=== PATIENT | male | born 1955 | race African-American/Black ===

== ENCOUNTER 2016-05-21 07:55 | Inpatient (IN) | payer OTHER ==
[~2016-05-21] VITALS: Ht 175.3 cm; Wt 65.0 kg
[2016-05-21] VITALS (12 sets, daily range): BP systolic 170–194; BP diastolic 118–145
[~2016-05-21 07:55] MED LIST: ADVAIR 250/501 DISK IH; AMLODIPINE BESY10 MG PO; AMLODIPINE BESYL5 MG PO; APRESOLINE100 MG PO; APRESOLINE50 MG PO; ASPIR-LOW81 MG PO; AUGMENTIN500 MG PO; BACTRIM,SEPT1 TABLE1 PO; BUMETANIDE1 MG PO; BUMEX1 MG PO; CALCITRIOL0.25 MCG PO; CALCIUM ACETAT667 MG PO; CLARITIN,ALAVAR10 MG PO; CLONIDINE HCL0.1 MG PO; CLONIDINE1 EAC2 TD; COLACE100 MG PO; CYANOCOBAL1000 MCG/2 IM; CYANOCOBALAM1000 MCG PO; CYCLOPHOSPHAMID50 M2 PO; DELTASONE20 M1 PO; DOXYCYCLINE HY100 MG PO; ERGOCALCIF50000 UNIT PO; FAMOTIDINE20 MG PO; FLORASTOR250 MG PO; FOLIC ACID1 MG PO; FUROSEMIDE40 MG PO; HYGROTON25 MG PO; IRON325 M1 PO; IRON325 MG PO; K-DUR20 MEQ PO; KEPPRA250 MG PO; KLOR-CON M2020 MEQ PO; LABETALOL HCL100 MG PO; LABETALOL HCL300 MG PO; LEVETIRACETAM250 MG PO; LISINOPRIL10 MG PO; LISINOPRIL20 MG PO; LISINOPRIL40 MG PO; LO-DOSE ASPIRIN81 M1 PO; LONITEN2.5 MG PO; LORATADINE10 M2 PO; MULTI-DAY PLUS1 EACH PO; NABI650T PO; NICODERM CQ1 EAC2 TD; NICOTINE PATCH1 EAC2 TD; NIFEDIPINE ER90 MG PO; NORMODYNE,TRAN300 MG PO; NORVASC10 MG PO; PANTOPRAZOLE SO40 MG PO; PEPCID20 MG PO; PREDNISONE10 MG PO; PREDNISONE20 MG PO; PROTONIX40 MG PO; ROCALTROL0.25 MCG PO; VENTOLIN HFA18 GM IH; VIBRAMYCIN100 MG PO; VITAMIN B-12500 MC5 SL; VITAMIN D-32000 UNI2 PO; VITAMIN D2000 UNIT PO; VITAMIN D22000 UNIT PO; Vitamin B-12 PO; ZESTRIL20 MG PO
[2016-05-21 09:09] LABS: HEMATOCRIT 17.7 % (38.0-50.0); MCH 25.4 PG (29.0-34.0); MCHC 32.8 G/DL (30.0-36.0); MCV 77.6 FL (86-99); MEAN PLAT.VOLUME 9.3 uM^3 (9.0-12.4); PLATELET COUNT 177 K/uL (156-360); RBC DIS.WIDTH-CV 17.2 % (11.8-14.6); RBC DIS.WIDTH-SD 45.5 % (39-53); RED BLOOD COUNT 2.28 M/uL (4.00-5.50); WHITE BLOOD COUNT 10.5 K/uL (4.1-10.2)
[2016-05-21 09:14] LABS: CHLORIDE 105 mEq/L (99-109); POTASSIUM 3.6 mEq/L (3.7-5.4); SODIUM 135 mEq/L (136-147)
[2016-05-21 09:16] LABS: GLUCOSE 110 mg/dL (70-99)
[2016-05-21 09:17] LABS: ANION GAP 13 MEQ/L (2-14)
[2016-05-21 09:20] LABS: GFR ESTIMATE (CALCULATED) 26 mL/min/; UREA NITROGEN (BUN) 42 mg/dL (9-23)
[2016-05-21 09:29] LABS: TROP-I INTERPRETATION NEGATIVE; TROPONIN-I 0.18 ng/mL (0.0-0.30)
[2016-05-21] MEDS ORDERED: MINOXIDIL2.5 MG PO (12:04)
[2016-05-21] MEDS ORDERED: CALCIUM ACETAT667 MG PO (12:05)
[2016-05-21] MEDS ORDERED: NABI650T PO (12:19)
[2016-05-21] MEDS ORDERED: FOLIC ACID1 MG PO (12:20)
[2016-05-21] MEDS ORDERED: CALCITRIOL0.25 MCG PO (12:20)
[2016-05-21] MEDS ORDERED: NIFEDIPINE ER90 MG PO (12:21)
[2016-05-21 20:34] LABS: METH RESISTANT S AUREUS PCR NEGATIVE (NEGATIVE)
[2016-05-21 20:59] LABS: PROBE CHECK PASS; SPECIMEN PROCESSING CONTROL PASS
[2016-05-21 22:13] LABS: HEMATOCRIT 23.6 % (38.0-50.0); MCH 26.7 PG (29.0-34.0); MCHC 34.3 G/DL (30.0-36.0); MCV 77.9 FL (86-99); MEAN PLAT.VOLUME 9.9 uM^3 (9.0-12.4); PLATELET COUNT 151 K/uL (156-360); RBC DIS.WIDTH-CV 16.6 % (11.8-14.6); RBC DIS.WIDTH-SD 47.3 % (39-53); RED BLOOD COUNT 3.03 M/uL (4.00-5.50); WHITE BLOOD COUNT 4.9 K/uL (4.1-10.2)
[2016-05-22] VITALS (14 sets, daily range): BP systolic 94–156; BP diastolic 55–102
[2016-05-22 06:22] LABS: ANION GAP 14 MEQ/L (2-14); CHLORIDE 100 MEQ/L (99-109); GFR ESTIMATE (CALCULATED) 24 mL/min/; GLUCOSE 118 mg/dL (70-99); SAMPLE HEMOLYSIS CHECK 0; SAMPLE ICTERIC CHECK 0; SAMPLE LIPEMIA CHECK 0; SODIUM 133 MEQ/L (136-147); UREA NITROGEN (BUN) 53 mg/dL (9-23)
[2016-05-22 06:59] LABS: HEMATOCRIT 23.8 % (38.0-50.0); MCH 26.1 PG (29.0-34.0); MCHC 33.6 G/DL (30.0-36.0); MCV 77.5 FL (86-99); MEAN PLAT.VOLUME 10.6 uM^3 (9.0-12.4); PLATELET COUNT 176 K/uL (156-360); RBC DIS.WIDTH-CV 16.7 % (11.8-14.6); RBC DIS.WIDTH-SD 47.2 % (39-53); RED BLOOD COUNT 3.07 M/uL (4.00-5.50)
[2016-05-22 07:09] LABS: WHITE BLOOD COUNT 6.5 K/uL (4.1-10.2)
[2016-05-23 01:00] VITALS: BP 109/63
[2016-05-23 04:00] VITALS: BP 124/61
[2016-05-23 08:00] VITALS: BP 119/70
[2016-05-23 09:44] LABS: HEMATOCRIT 23.1 % (38.0-50.0); MCH 26.7 PG (29.0-34.0); MCHC 33.8 G/DL (30.0-36.0); MCV 79.1 FL (86-99); MEAN PLAT.VOLUME 10.1 uM^3 (9.0-12.4); PLATELET COUNT 194 K/uL (156-360); RBC DIS.WIDTH-SD 48.8 % (39-53); RED BLOOD COUNT 2.92 M/uL (4.00-5.50)
[2016-05-23 10:05] LABS: ANION GAP 13 MEQ/L (2-14); CHLORIDE 101 MEQ/L (99-109); GFR ESTIMATE (CALCULATED) 24 mL/min/; GLUCOSE 112 mg/dL (70-99); SAMPLE HEMOLYSIS CHECK 0; SAMPLE ICTERIC CHECK 0; SAMPLE LIPEMIA CHECK 0; SODIUM 133 MEQ/L (136-147); UREA NITROGEN (BUN) 53 mg/dL (9-23)
[2016-05-23 10:07] LABS: POTASSIUM 2.9 MEQ/L (3.7-5.4)
[2016-05-23 10:15] LABS: WHITE BLOOD COUNT 9.6 K/uL (4.1-10.2)
[2016-05-23 12:00] VITALS: BP 129/75
[2016-05-23 13:00] VITALS: BP 134/85
== END 2016-05-23 14:04 | disposition home health service (06) | DRG 304 ==
LOC: EME 07:55 → 4WEST 15:48 → EDOF 15:48 → 4WEST 17:41
PROVIDERS: Internal Medicine; Internal Medicine Critical Care Medicine
PROC: 30233N1 Transfusion of Nonautologous Red Blood Cells into Peripheral Vein, Percutaneous Approach (ICD-10-PCS; principal; 2016-05-21)
DX: I16.0 Hypertensive urgency (principal); J44.0 Chronic obstructive pulmonary disease with (acute) lower respiratory infection; J18.9 Pneumonia, unspecified organism; R04.2 Hemoptysis; N18.4 Chronic kidney disease, stage 4 (severe); D59.9 Acquired hemolytic anemia, unspecified; I13.0 Hypertensive heart and chronic kidney disease with heart failure and stage 1 through stage 4 chronic kidney disease, or unspecified chronic kidney disease; I50.32 Chronic diastolic (congestive) heart failure; D63.1 Anemia in chronic kidney disease; E78.5 Hyperlipidemia, unspecified; R09.02 Hypoxemia; G40.909 Epilepsy, unspecified, not intractable, without status epilepticus; F17.210 Nicotine dependence, cigarettes, uncomplicated; Z79.82 Long term (current) use of aspirin
CPT/HCPCS: 70450; 71020; 80048; 83880; 84484; 85027; 86850; 86900; 86901; 86920; 87040; 87641; 93005; 94640; 94640 76; 94799; 99202; 99281; 99285; C1751; J0360; J0456; J1644; J2543; J2930; J3370; P9016

== ENCOUNTER 2016-05-30 08:43 | Inpatient (IN) | payer OTHER ==
[~2016-05-30] VITALS: Ht 175.3 cm; Wt 64.0 kg
[2016-05-30] VITALS (10 sets, daily range): BP systolic 128–209; BP diastolic 71–126
[~2016-05-30 08:43] MED LIST changes: +MINOXIDIL2.5 MG PO
[2016-05-30 09:39] LABS: INTER. NORMALIZED RATIO 1.1; PROTHROMBIN TIME 11.3 (9.2-11.2); PTT 26.1 (25-32)
[2016-05-30 09:40] LABS: CHLORIDE 110 mEq/L (99-109)
[2016-05-30 09:41] LABS: GLUCOSE 151 mg/dL (70-99)
[2016-05-30 09:41] LABS: EOSINOPHIL (%) 1.1 % (0-5); EOSINOPHIL COUNT 0.2 K/uL (0-0.3); HEMATOCRIT 26.1 % (38.0-50.0); IMMATURE GRANULOCYTE (%) 0.3 % (0.0-0.7); IMMATURE GRANULOCYTE COUNT 0.6 K/uL; LYMPHOCYTE COUNT 1.9 K/uL (1.0-2.8); MCH 26.5 PG (29.0-34.0); MCHC 32.2 G/DL (30.0-36.0); MCV 82.3 FL (86-99); MONOCYTE (%) 3.6 % (3-12); MONOCYTE COUNT 0.7 K/uL (0-0.8); NEUTROPHIL (%) 84.5 % (45-76); NEUTROPHIL COUNT 15.7 K/uL (1.8-6.4); RBC DIS.WIDTH-CV 17.7 % (11.8-14.6); RBC DIS.WIDTH-SD 51.4 % (39-53); RED BLOOD COUNT 3.17 M/uL (4.00-5.50)
[2016-05-30 09:43] LABS: ANION GAP 15 MEQ/L (2-14)
[2016-05-30 09:43] LABS: BASE EXCESS -1.2 mEq/L (-3 to +3); BICARBONATE 23.5 mEq/L (22-26); CARBOXY HGB 3.1 % (0-5); COMMENTS - BLOOD GASES NEG A+C+; DEVICE NIVV; METHEMOGLOBIN 1.3 % (0-1.5); PCO2 38 mm Hg (35-45); PO2 64 mm Hg (80-100); SITE RR
[2016-05-30 09:44] LABS: CONTINUOUS POS AIRWAY PRESSURE 5 cm H2O; MODE SPONT; PRES. SUPPORT 15 CM/H2O; TOTAL RESP RATE 32 resp/min
[2016-05-30 09:46] LABS: UREA NITROGEN (BUN) 31 mg/dL (9-23)
[2016-05-30 09:52] LABS: PLATELET COUNT 365 K/uL (156-360); WHITE BLOOD COUNT 18.6 K/uL (4.1-10.2)
[2016-05-30 09:55] LABS: TROP-I INTERPRETATION NEGATIVE; TROPONIN-I 0.04 ng/mL (0.0-0.30)
[2016-05-30 10:01] LABS: GFR ESTIMATE (CALCULATED) 32 mL/min/; POTASSIUM 3.8 mEq/L (3.7-5.4); SODIUM 142 mEq/L (136-147)
[2016-05-30 10:50] LABS: HEMATOLOGY COMMENT 1 SMEAR COMPATIBLE; PLAT.SUFFICIENCY INCREASED; USER ID STC
[2016-05-30 13:16] LABS: FI02 50 %
[2016-05-30 17:27] LABS: METH RESISTANT S AUREUS PCR NEGATIVE (NEGATIVE)
[2016-05-30 17:45] LABS: PROBE CHECK PASS; SPECIMEN PROCESSING CONTROL PASS
[2016-05-31] VITALS (13 sets, daily range): BP systolic 122–155; BP diastolic 65–85
[2016-05-31 04:54] LABS: CHLORIDE 109 mEq/L (99-109); POTASSIUM 4.5 mEq/L (3.7-5.4); SODIUM 142 mEq/L (136-147)
[2016-05-31 04:56] LABS: GLUCOSE 124 mg/dL (70-99)
[2016-05-31 04:58] LABS: ANION GAP 11 MEQ/L (2-14); TOTAL BILIRUBIN 0.4 mg/dL (0.0-1.0)
[2016-05-31 05:00] LABS: ALKALINE PHOSPHATASE 72 IU/L (3-129); GFR ESTIMATE (CALCULATED) 27 mL/min/
[2016-05-31 05:01] LABS: UREA NITROGEN (BUN) 42 mg/dL (9-23)
[2016-05-31 06:16] LABS: BASE EXCESS 0.3 mEq/L (-3 to +3); BICARBONATE 23.6 mEq/L (22-26); CARBOXY HGB 2.9 % (0-5); COMMENTS - BLOOD GASES C+; DEVICE MASK VENT; FI02 30 %; METHEMOGLOBIN 1.5 % (0-1.5); MODE SPONT; PCO2 31 mm Hg (35-45); PEEP 5 CM/H20; PO2 93 mm Hg (80-100); PRES. SUPPORT 10 CM/H2O; SITE RR; TOTAL RESP RATE 18 resp/min; pH 7.49 (7.35-7.45)
[2016-06-01] VITALS (7 sets, daily range): BP systolic 130–160; BP diastolic 67–80
[2016-06-01 08:17] LABS: EOSINOPHIL (%) 0 % (0-5); HEMATOCRIT 17.7 % (38.0-50.0); IMMATURE GRANULOCYTE (%) 0.3 % (0.0-0.7); LYMPHOCYTE COUNT 1.2 K/uL (1.0-2.8); MCH 27.5 PG (29.0-34.0); MCHC 34.5 G/DL (30.0-36.0); MCV 79.7 FL (86-99); MONOCYTE (%) 5.9 % (3-12); MONOCYTE COUNT 0.8 K/uL (0-0.8); NEUTROPHIL (%) 85.2 % (45-76); NEUTROPHIL COUNT 12.1 K/uL (1.8-6.4); RBC DIS.WIDTH-CV 17.9 % (11.8-14.6); RBC DIS.WIDTH-SD 51.7 % (39-53); RED BLOOD COUNT 2.22 M/uL (4.00-5.50); WHITE BLOOD COUNT 14.2 K/uL (4.1-10.2)
[2016-06-01 08:29] LABS: ANION GAP 15 MEQ/L (2-14); CHLORIDE 105 MEQ/L (99-109); GFR ESTIMATE (CALCULATED) 23 mL/min/; POTASSIUM 3.9 MEQ/L (3.7-5.4); SAMPLE HEMOLYSIS CHECK 0; SAMPLE ICTERIC CHECK 0; SAMPLE LIPEMIA CHECK 0; SODIUM 139 MEQ/L (136-147); UREA NITROGEN (BUN) 52 mg/dL (9-23)
[2016-06-01 08:32] LABS: GLUCOSE 90 mg/dL (70-99)
[2016-06-01 08:33] LABS: PLAT.SUFFICIENCY ADEQUATE; PLATELET COUNT UNABLE TO REPORT K/uL (156-360)
[2016-06-01 23:16] LABS: EOSINOPHIL (%) 0 % (0-5); HEMATOCRIT 24.6 % (38.0-50.0); IMMATURE GRANULOCYTE (%) 0.2 % (0.0-0.7); IMMATURE GRANULOCYTE COUNT 0.2 K/uL; LYMPHOCYTE COUNT 0.7 K/uL (1.0-2.8); MCH 27.2 PG (29.0-34.0); MCHC 33.3 G/DL (30.0-36.0); MCV 81.7 FL (86-99); MONOCYTE (%) 4.5 % (3-12); MONOCYTE COUNT 0.6 K/uL (0-0.8); NEUTROPHIL COUNT 11.6 K/uL (1.8-6.4); RBC DIS.WIDTH-CV 16.4 % (11.8-14.6); RBC DIS.WIDTH-SD 46.1 % (39-53); WHITE BLOOD COUNT 12.9 K/uL (4.1-10.2)
[2016-06-01 23:17] LABS: RED BLOOD COUNT 3.01 M/uL (4.00-5.50)
[2016-06-02 00:09] LABS: GIANT PLATELETS RARE; MEAN PLAT.VOLUME 9.6 uM^3 (9.0-12.4); PLAT.SUFFICIENCY ADEQUATE; PLATELET COUNT 256 K/uL (156-360); USER ID DCS
[2016-06-02 00:39] VITALS: BP 151/85
[2016-06-02 03:53] VITALS: BP 134/82
[2016-06-02 08:34] LABS: HEMATOCRIT 23.9 % (38.0-50.0); MCH 27.5 PG (29.0-34.0); MCHC 33.9 G/DL (30.0-36.0); MEAN PLAT.VOLUME 10.2 uM^3 (9.0-12.4); PLATELET COUNT 220 K/uL (156-360); RBC DIS.WIDTH-SD 50.7 % (39-53); RED BLOOD COUNT 2.95 M/uL (4.00-5.50); WHITE BLOOD COUNT 13.6 K/uL (4.1-10.2)
[2016-06-02 08:38] VITALS: BP 176/84
[2016-06-02 09:03] LABS: ANION GAP 10 MEQ/L (2-14); CHLORIDE 104 MEQ/L (99-109); GFR ESTIMATE (CALCULATED) 25 mL/min/; GLUCOSE 84 mg/dL (70-99); POTASSIUM 3.8 MEQ/L (3.7-5.4); SAMPLE HEMOLYSIS CHECK 0; SAMPLE ICTERIC CHECK 0; SAMPLE LIPEMIA CHECK 0; SODIUM 135 MEQ/L (136-147); UREA NITROGEN (BUN) 50 mg/dL (9-23)
[2016-06-02 09:05] LABS: INTACT PARATHYROID HORMONE 197 pg/mL (10-69)
[2016-06-02 11:49] VITALS: BP 153/74
[2016-06-02 11:56] LABS: HEMATOCRIT 25.4 % (38.0-50.0); MCV 80.4 FL (86-99)
[2016-06-02 15:38] VITALS: BP 142/67
[2016-06-02 18:00] LABS: HEMATOCRIT 28.2 % (38.0-50.0)
[2016-06-02 20:00] VITALS: BP 147/71
[2016-06-03 00:07] VITALS: BP 152/81
[2016-06-03 00:49] LABS: HEMATOCRIT 26.4 % (38.0-50.0)
[2016-06-03 04:00] VITALS: BP 154/73
[2016-06-03 07:42] VITALS: BP 169/80
[2016-06-03 08:30] LABS: HEMATOCRIT 24.3 % (38.0-50.0); MCH 27.7 PG (29.0-34.0); MCHC 34.2 G/DL (30.0-36.0); MEAN PLAT.VOLUME 9.7 uM^3 (9.0-12.4); PLATELET COUNT 236 K/uL (156-360); RBC DIS.WIDTH-CV 16.7 % (11.8-14.6); RBC DIS.WIDTH-SD 49.4 % (39-53); WHITE BLOOD COUNT 11.1 K/uL (4.1-10.2)
[2016-06-03 08:56] LABS: ANION GAP 9 MEQ/L (2-14); CHLORIDE 103 MEQ/L (99-109); GFR ESTIMATE (CALCULATED) 28 mL/min/; GLUCOSE 87 mg/dL (70-99); IRON 107 MCG/DL (35-150); POTASSIUM 3.6 MEQ/L (3.7-5.4); SAMPLE HEMOLYSIS CHECK 0; SAMPLE ICTERIC CHECK 0; SAMPLE LIPEMIA CHECK 0; SODIUM 134 MEQ/L (136-147); UREA NITROGEN (BUN) 45 mg/dL (9-23)
[2016-06-03 11:40] VITALS: BP 181/93
[2016-06-03 15:18] VITALS: BP 172/88
[2016-06-03 20:00] VITALS: BP 152/79
[2016-06-04] VITALS (8 sets, daily range): BP systolic 157–196; BP diastolic 64–93
[2016-06-04 00:41] LABS: HEMATOCRIT 26.1 % (38.0-50.0); MCV 81.6 FL (86-99)
[2016-06-04 04:09] LABS: HEMATOCRIT 25.2 % (38.0-50.0); MCHC 32.9 G/DL (30.0-36.0); MCV 82.1 FL (86-99); MEAN PLAT.VOLUME 9.4 uM^3 (9.0-12.4); PLATELET COUNT 249 K/uL (156-360); RBC DIS.WIDTH-CV 16.4 % (11.8-14.6); RBC DIS.WIDTH-SD 46.9 % (39-53); RED BLOOD COUNT 3.07 M/uL (4.00-5.50); WHITE BLOOD COUNT 9.7 K/uL (4.1-10.2)
[2016-06-04 04:17] LABS: CHLORIDE 106 mEq/L (99-109); POTASSIUM 4.3 mEq/L (3.7-5.4); SODIUM 135 mEq/L (136-147)
[2016-06-04 04:19] LABS: GLUCOSE 81 mg/dL (70-99)
[2016-06-04 04:21] LABS: ANION GAP 6 MEQ/L (2-14)
[2016-06-04 04:23] LABS: GFR ESTIMATE (CALCULATED) 30 mL/min/
[2016-06-04 04:24] LABS: UREA NITROGEN (BUN) 41 mg/dL (9-23)
[2016-06-04 13:57] LABS: HEMATOCRIT 28.7 % (38.0-50.0); MCV 81.8 FL (86-99)
[2016-06-04 17:56] LABS: HEMATOCRIT 26.9 % (38.0-50.0); MCV 81.8 FL (86-99)
[2016-06-04 22:47] LABS: INFLUENZA A VIRAL ANTIGEN POSITIVE; INFLUENZA B VIRAL ANTIGEN NEGATIVE
[2016-06-05] VITALS (7 sets, daily range): BP systolic 147–160; BP diastolic 78–89
[2016-06-05 00:59] LABS: HEMATOCRIT 23.9 % (38.0-50.0); MCV 82.7 FL (86-99)
[2016-06-05 07:40] LABS: IMMUNOGLOBULIN A 258 MG/DL (40-350); IMMUNOGLOBULIN G 831 MG/DL (650-1600); IMMUNOGLOBULIN M 61 MG/DL (50-300)
[2016-06-05 07:45] LABS: HEMATOCRIT 24.7 % (38.0-50.0); MCH 27.7 PG (29.0-34.0); MCV 81.5 FL (86-99); MEAN PLAT.VOLUME 10.1 uM^3 (9.0-12.4); PLATELET COUNT 239 K/uL (156-360); RBC DIS.WIDTH-CV 16.8 % (11.8-14.6); RED BLOOD COUNT 3.03 M/uL (4.00-5.50)
[2016-06-05 07:50] LABS: ANION GAP 11 MEQ/L (2-14); CHLORIDE 104 MEQ/L (99-109); GFR ESTIMATE (CALCULATED) 34 mL/min/; POTASSIUM 4.6 MEQ/L (3.7-5.4); SAMPLE HEMOLYSIS CHECK 0; SAMPLE ICTERIC CHECK 0; SAMPLE LIPEMIA CHECK 0; SODIUM 137 MEQ/L (136-147); UREA NITROGEN (BUN) 37 mg/dL (9-23)
[2016-06-05 07:59] LABS: GLUCOSE 110 mg/dL (70-99)
[2016-06-05 08:07] LABS: WHITE BLOOD COUNT 4.7 K/uL (4.1-10.2)
[2016-06-05 12:03] LABS: HEMATOCRIT 27.3 % (38.0-50.0); MCV 82.2 FL (86-99)
[2016-06-05 18:02] LABS: HEMATOCRIT 27.1 % (38.0-50.0); MCV 81.6 FL (86-99)
[2016-06-06 00:56] LABS: HEMATOCRIT 25.1 % (38.0-50.0)
[2016-06-06 06:59] LABS: HEMATOCRIT 23.7 % (38.0-50.0); MCV 81.4 FL (86-99)
[2016-06-06 07:34] VITALS: BP 133/84
[2016-06-06 12:22] LABS: MCV 81.1 FL (86-99)
[2016-06-06 13:06] LABS: ANION GAP 8 MEQ/L (2-14); CHLORIDE 103 MEQ/L (99-109); GFR ESTIMATE (CALCULATED) 32 mL/min/; GLUCOSE 115 mg/dL (70-99); SAMPLE HEMOLYSIS CHECK 0; SAMPLE ICTERIC CHECK 0; SAMPLE LIPEMIA CHECK 0; SODIUM 134 MEQ/L (136-147); UREA NITROGEN (BUN) 41 mg/dL (9-23)
[2016-06-06] MEDS ORDERED: IMDUR30 MG PO (14:31)
[2016-06-06] MEDS ORDERED: LONITEN2.5 MG PO (14:31)
[2016-06-06] MEDS ORDERED: LISINOPRIL20 MG PO (14:31)
[2016-06-06] MEDS ORDERED: OSELTAMIVIR PHO30 MG PO (14:31)
[2016-06-06] MEDS ORDERED: PREDNISONE10 MG PO (14:32)
[2016-06-06] MEDS ORDERED: CEFTIN500 MG PO (14:32)
[2016-06-06] MEDS ORDERED: DOXYCYCLINE HY100 MG PO (14:32)
== END 2016-06-06 18:15 | disposition home health service (06) | DRG 291 ==
LOC: EME → EDBD 08:43 → EME 08:43 → EDSEX 08:43 → EDOF 13:19 → 4WEST 13:19 → 5SOUTH 13:19 → 4WEST 14:46 → 5SOUTH 05-31 11:45
PROVIDERS: Emergency Medicine; Hospitalist; Internal Medicine; Internal Medicine Pulmonary Disease; Physician Assistant Medical
PROC: 5A09357 Assistance with Respiratory Ventilation, Less than 24 Consecutive Hours, Continuous Positive Airway Pressure (ICD-10-PCS; principal; 2016-05-30)
PROC: 30233N1 Transfusion of Nonautologous Red Blood Cells into Peripheral Vein, Percutaneous Approach (ICD-10-PCS; 2016-06-01)
DX: I13.0 Hypertensive heart and chronic kidney disease with heart failure and stage 1 through stage 4 chronic kidney disease, or unspecified chronic kidney disease (principal); N17.9 Acute kidney failure, unspecified; N18.4 Chronic kidney disease, stage 4 (severe); E87.2 Acidosis; D63.1 Anemia in chronic kidney disease; I50.33 Acute on chronic diastolic (congestive) heart failure; J96.01 Acute respiratory failure with hypoxia; I16.0 Hypertensive urgency; E55.9 Vitamin D deficiency, unspecified; G40.909 Epilepsy, unspecified, not intractable, without status epilepticus; Z91.19 Patient's noncompliance with other medical treatment and regimen; J44.9 Chronic obstructive pulmonary disease, unspecified; F17.200 Nicotine dependence, unspecified, uncomplicated; E78.5 Hyperlipidemia, unspecified; N05.2 Unspecified nephritic syndrome with diffuse membranous glomerulonephritis; D59.4 Other nonautoimmune hemolytic anemias; F43.20 Adjustment disorder, unspecified; J18.9 Pneumonia, unspecified organism; J10.1 Influenza due to other identified influenza virus with other respiratory manifestations
CPT/HCPCS: 36600; 71010; 80048; 80053; 80069; 81003; 82272; 82306; 82607; 82746; 82784 90; 82803; 83540; 83605; 83880; 83970; 84466; 84484; 85014; 85018; 85025; 85025 91; 85027; 85610; 85730; 86850; 86900; 86901; 86920; 87040; 87070; 87205; 87502; 87641; 93005; 94002; 94640; 94640 76; 94644; 99202; 99281; 99285; J0360; J0696; J1650; J1940; J2920; J2930; J7050; J7512; J7644; P9016; S0028

== ENCOUNTER 2016-06-18 01:40 | Inpatient (IN) | payer OTHER ==
[~2016-06-18] VITALS: Ht 175.3 cm; Wt 74.0 kg
[2016-06-18] VITALS (19 sets, daily range): BP systolic 122–206; BP diastolic 75–118
[~2016-06-18 01:40] MED LIST changes: +CEFTIN500 MG PO; +IMDUR30 MG PO; +OSELTAMIVIR PHO30 MG PO
[2016-06-18 02:25] LABS: CHLORIDE 107 mEq/L (99-109); INTER. NORMALIZED RATIO 1.1; POTASSIUM 4.4 mEq/L (3.7-5.4); PROTHROMBIN TIME 11.4 (9.2-11.2); PTT 29.6 (25-32); SODIUM 139 mEq/L (136-147)
[2016-06-18 02:26] LABS: BASE EXCESS -4.2 mEq/L (-3 to +3); BICARBONATE 21.6 mEq/L (22-26); CARBOXY HGB 3.1 % (0-5); COMMENTS - BLOOD GASES C+; DEVICE 840; METHEMOGLOBIN 1.1 % (0-1.5); PCO2 42 mm Hg (35-45); PO2 71 mm Hg (80-100); SITE RR; pH 7.32 (7.35-7.45)
[2016-06-18 02:27] LABS: GLUCOSE 118 mg/dL (70-99)
[2016-06-18 02:27] LABS: FI02 60 %; MODE NIV; PEEP 5 CM/H20; PRES. SUPPORT 10 CM/H2O; TOTAL RESP RATE 37 resp/min
[2016-06-18 02:28] LABS: ANION GAP 14 MEQ/L (2-14)
[2016-06-18 02:29] LABS: TOTAL BILIRUBIN 0.8 mg/dL (0.0-1.0)
[2016-06-18 02:30] LABS: ALKALINE PHOSPHATASE 89 IU/L (3-129)
[2016-06-18 02:31] LABS: GFR ESTIMATE (CALCULATED) 30 mL/min/
[2016-06-18 02:32] LABS: UREA NITROGEN (BUN) 47 mg/dL (9-23)
[2016-06-18 02:34] LABS: LIPASE 39 U/L (1.0-51.0)
[2016-06-18 02:37] LABS: TROP-I INTERPRETATION NEGATIVE; TROPONIN-I 0.17 ng/mL (0.0-0.30)
[2016-06-18 03:06] LABS: HEMATOLOGY COMMENT 1 REV; USER ID SLU
[2016-06-18 03:08] LABS: EOSINOPHIL COUNT 0.2 K/uL (0-0.3); HEMATOCRIT 24.4 % (38.0-50.0); IMMATURE GRANULOCYTE (%) 0.2 % (0.0-0.7); IMMATURE GRANULOCYTE COUNT 0.4 K/uL; LYMPHOCYTE COUNT 2.1 K/uL (1.0-2.8); MCH 26.6 PG (29.0-34.0); MCHC 31.6 G/DL (30.0-36.0); MCV 84.1 FL (86-99); MEAN PLAT.VOLUME 9.3 uM^3 (9.0-12.4); MONOCYTE (%) 4.7 % (3-12); MONOCYTE COUNT 0.9 K/uL (0-0.8); NEUTROPHIL (%) 83.4 % (45-76); NEUTROPHIL COUNT 16.4 K/uL (1.8-6.4); PLATELET COUNT 261 K/uL (156-360); RBC DIS.WIDTH-CV 17.4 % (11.8-14.6); RBC DIS.WIDTH-SD 51.6 % (39-53); WHITE BLOOD COUNT 19.7 K/uL (4.1-10.2)
[2016-06-18 03:16] LABS: INFLUENZA A VIRAL ANTIGEN POSITIVE; INFLUENZA B VIRAL ANTIGEN NEGATIVE
[2016-06-18 04:13] LABS: ADD MIUA? YES; BILIRUBIN NEGATIVE; BLOOD SMALL; COLOR YELLOW ((YELLOW)); GLUCOSE (STRIP) 50; KETONES NEGATIVE; LEUKOCYTES NEGATIVE; NITRITE NEGATIVE; PROTEIN (STRIP) >=500; SPECIFIC GRAVITY 1.013 (1.000-1.030); UROBILINOGEN 0.2 MG/DL (0.2-1.0)
[2016-06-18 04:21] LABS: BACTERIA RARE /HPF; EPITHELIAL CELLS RARE /HPF; HYALINE CASTS 0-5 /LPF; MUCUS TRACE /LPF; RED BLOOD CELLS 20-30 /HPF (0-5); UCUL ADDED? NO
[2016-06-18 04:35] LABS: BASE EXCESS -3.7 mEq/L (-3 to +3); CARBOXY HGB 2.2 % (0-5); COMMENTS - BLOOD GASES C+; DEVICE VENT; FI02 80 %; MECHANICAL RATE 18 resp/min; METHEMOGLOBIN 2.7 % (0-1.5); MODE AC; PCO2 50 mm Hg (35-45); PEEP 12 CM/H20; PO2 241 mm Hg (80-100); SITE RR; TIDAL VOLUME 500 ML; TOTAL RESP RATE 21 resp/min; pH 7.27 (7.35-7.45)
[2016-06-18 05:31] LABS: METH RESISTANT S AUREUS PCR NEGATIVE (NEGATIVE)
[2016-06-18 05:37] LABS: PROBE CHECK PASS; SPECIMEN PROCESSING CONTROL PASS
[2016-06-18 09:52] LABS: TROP-I INTERPRETATION NEGATIVE; TROPONIN-I 0.25 ng/mL (0.0-0.30)
[2016-06-18 11:09] LABS: TROP-I INTERPRETATION NEGATIVE; TROPONIN-I 0.29 ng/mL (0.0-0.30)
[2016-06-18 14:22] LABS: TROP-I INTERPRETATION NEGATIVE; TROPONIN-I 0.27 ng/mL (0.0-0.30)
[2016-06-18 14:46] LABS: MAGNESIUM 1.7 mg/dl (1.3-2.7)
[2016-06-18 15:22] LABS: TROP-I INTERPRETATION NEGATIVE; TROPONIN-I 0.24 ng/mL (0.0-0.30)
[2016-06-19] VITALS (27 sets, daily range): BP systolic 140–181; BP diastolic 70–106
[2016-06-19 06:23] LABS: ANION GAP 10 MEQ/L (2-14); CHLORIDE 108 MEQ/L (99-109); GFR ESTIMATE (CALCULATED) 30 mL/min/; MAGNESIUM 1.7 mg/dl (1.3-2.7); POTASSIUM 3.8 MEQ/L (3.7-5.4); SAMPLE HEMOLYSIS CHECK 0; SAMPLE ICTERIC CHECK 0; SAMPLE LIPEMIA CHECK 0; SODIUM 139 MEQ/L (136-147); UREA NITROGEN (BUN) 44 mg/dL (9-23)
[2016-06-19 06:45] LABS: GLUCOSE 88 mg/dL (70-99); VANCOMYCIN, TROUGH 12.1 MCG/ML (10-20)
[2016-06-19 07:04] LABS: HEMATOCRIT 18.3 % (38.0-50.0); MCH 26.7 PG (29.0-34.0); MCHC 32.8 G/DL (30.0-36.0); MCV 82.2 FL (86-99); RBC DIS.WIDTH-CV 17.7 % (11.8-14.6); RBC DIS.WIDTH-SD 52.9 % (39-53)
[2016-06-19 07:06] LABS: RED BLOOD COUNT 2.25 M/uL (4.00-5.50); WHITE BLOOD COUNT 9.5 K/uL (4.1-10.2)
[2016-06-19 07:47] LABS: BASOPHIL COUNT 0.1 K/uL (0-0.1); EOSINOPHIL (%) 3.3 % (0-5); EOSINOPHIL COUNT 0.3 K/uL (0-0.3); IMMATURE GRANULOCYTE (%) 0.7 % (0.0-0.7); IMMATURE GRANULOCYTE COUNT 0.1 K/uL; LYMPHOCYTE COUNT 1.1 K/uL (1.0-2.8); MONOCYTE (%) 6.8 % (3-12); MONOCYTE COUNT 0.7 K/uL (0-0.8); NEUTROPHIL (%) 76.7 % (45-76); NEUTROPHIL COUNT 7.3 K/uL (1.8-6.4)
[2016-06-19 08:17] LABS: HEMATOLOGY COMMENT 1 CL; MEAN PLAT.VOLUME 10.1 uM^3 (9.0-12.4); PLAT.SUFFICIENCY DECREASED
[2016-06-19 08:27] LABS: PLATELET COUNT 134 K/uL (156-360)
[2016-06-19 17:21] LABS: ABSOLUTE RETICULOCYTE CT. 0.02 M/uL (0.02-0.08); IMM.RETIC FRACTION 5.8 % (3-19); RETIC HGB EQUIVALENT 29.5 (28-36)
[2016-06-19 17:33] LABS: RETICULOCYTE COUNT 0.7 % (0.5-1.8)
[2016-06-20] VITALS (26 sets, daily range): BP systolic 146–195; BP diastolic 80–107
[2016-06-20 06:45] LABS: EOSINOPHIL (%) 3.4 % (0-5); EOSINOPHIL COUNT 0.4 K/uL (0-0.3); HEMATOCRIT 24.7 % (38.0-50.0); IMMATURE GRANULOCYTE (%) 0.2 % (0.0-0.7); LYMPHOCYTE COUNT 0.8 K/uL (1.0-2.8); MCH 26.8 PG (29.0-34.0); MCHC 32.4 G/DL (30.0-36.0); MCV 82.9 FL (86-99); MEAN PLAT.VOLUME 10.4 uM^3 (9.0-12.4); MONOCYTE (%) 7.9 % (3-12); MONOCYTE COUNT 0.9 K/uL (0-0.8); NEUTROPHIL (%) 81.5 % (45-76); NEUTROPHIL COUNT 9.2 K/uL (1.8-6.4); PLATELET COUNT 132 K/uL (156-360); RBC DIS.WIDTH-CV 16.7 % (11.8-14.6); RBC DIS.WIDTH-SD 50.7 % (39-53); RED BLOOD COUNT 2.98 M/uL (4.00-5.50); WHITE BLOOD COUNT 11.3 K/uL (4.1-10.2)
[2016-06-20 07:36] LABS: ANION GAP 11 MEQ/L (2-14); CHLORIDE 109 MEQ/L (99-109); GFR ESTIMATE (CALCULATED) 32 mL/min/; GLUCOSE 86 mg/dL (70-99); POTASSIUM 3.4 MEQ/L (3.7-5.4); SAMPLE HEMOLYSIS CHECK 0; SAMPLE ICTERIC CHECK 0; SAMPLE LIPEMIA CHECK 0; SODIUM 142 MEQ/L (136-147); UREA NITROGEN (BUN) 36 mg/dL (9-23)
[2016-06-20 07:37] LABS: MAGNESIUM 2.1 mg/dl (1.3-2.7)
[2016-06-21] VITALS (24 sets, daily range): BP systolic 132–195; BP diastolic 75–107
[2016-06-21 06:20] LABS: ANION GAP 12 MEQ/L (2-14); CHLORIDE 109 MEQ/L (99-109); GFR ESTIMATE (CALCULATED) 31 mL/min/; GLUCOSE 100 mg/dL (70-99); MAGNESIUM 1.9 mg/dl (1.3-2.7); POTASSIUM 3.7 MEQ/L (3.7-5.4); SAMPLE HEMOLYSIS CHECK 0; SAMPLE ICTERIC CHECK 0; SAMPLE LIPEMIA CHECK 0; SODIUM 142 MEQ/L (136-147); UREA NITROGEN (BUN) 32 mg/dL (9-23)
[2016-06-21 06:28] LABS: EOSINOPHIL (%) 1.9 % (0-5); EOSINOPHIL COUNT 0.3 K/uL (0-0.3); HEMATOCRIT 23.7 % (38.0-50.0); IMMATURE GRANULOCYTE (%) 0.2 % (0.0-0.7); LYMPHOCYTE COUNT 0.4 K/uL (1.0-2.8); MCH 26.9 PG (29.0-34.0); MCHC 32.5 G/DL (30.0-36.0); MCV 82.9 FL (86-99); MEAN PLAT.VOLUME 9.8 uM^3 (9.0-12.4); MONOCYTE (%) 3.7 % (3-12); MONOCYTE COUNT 0.6 K/uL (0-0.8); NEUTROPHIL (%) 91.8 % (45-76); PLATELET COUNT 137 K/uL (156-360); RBC DIS.WIDTH-CV 16.5 % (11.8-14.6); RBC DIS.WIDTH-SD 49.7 % (39-53); RED BLOOD COUNT 2.86 M/uL (4.00-5.50)
[2016-06-21 06:37] LABS: WHITE BLOOD COUNT 16.4 K/uL (4.1-10.2)
[2016-06-21 17:02] LABS: BASE EXCESS 1.1 mEq/L (-3 to +3); BICARBONATE 24.9 mEq/L (22-26); CARBOXY HGB 2.9 % (0-5); COMMENTS - BLOOD GASES C+; DEVICE VENT; FI02 30 %; METHEMOGLOBIN 1.9 % (0-1.5); MODE TC; PCO2 35 mm Hg (35-45); PEEP 5 CM/H20; PO2 61 mm Hg (80-100); SITE LR; TOTAL RESP RATE 22 resp/min; pH 7.46 (7.35-7.45)
[2016-06-22] VITALS (24 sets, daily range): BP systolic 126–191; BP diastolic 65–104
[2016-06-22 06:38] LABS: ANION GAP 13 MEQ/L (2-14); CHLORIDE 106 MEQ/L (99-109); GFR ESTIMATE (CALCULATED) 31 mL/min/; GLUCOSE 90 mg/dL (70-99); POTASSIUM 3.8 MEQ/L (3.7-5.4); SAMPLE HEMOLYSIS CHECK 0; SAMPLE ICTERIC CHECK 0; SAMPLE LIPEMIA CHECK 0; SODIUM 140 MEQ/L (136-147); UREA NITROGEN (BUN) 33 mg/dL (9-23)
[2016-06-22 06:50] LABS: MAGNESIUM 2.3 mg/dl (1.3-2.7)
[2016-06-22 07:02] LABS: HEMATOCRIT 23.1 % (38.0-50.0); MCH 26.8 PG (29.0-34.0); MCV 83.7 FL (86-99); MEAN PLAT.VOLUME 10.7 uM^3 (9.0-12.4); PLATELET COUNT 168 K/uL (156-360); RBC DIS.WIDTH-CV 16.8 % (11.8-14.6); RBC DIS.WIDTH-SD 51.4 % (39-53); RED BLOOD COUNT 2.76 M/uL (4.00-5.50); WHITE BLOOD COUNT 13.7 K/uL (4.1-10.2)
[2016-06-22 07:22] LABS: EOSINOPHIL (%) 1.9 % (0-5); EOSINOPHIL COUNT 0.3 K/uL (0-0.3); IMMATURE GRANULOCYTE (%) 0.2 % (0.0-0.7); LYMPHOCYTE COUNT 0.7 K/uL (1.0-2.8); MONOCYTE (%) 5.1 % (3-12); MONOCYTE COUNT 0.7 K/uL (0-0.8); NEUTROPHIL (%) 87.7 % (45-76)
[2016-06-22 23:06] LABS: LACTATE DEHYDROGENASE 253 IU/L (20-246)
[2016-06-23] VITALS (15 sets, daily range): BP systolic 146–176; BP diastolic 67–93
[2016-06-23 06:22] LABS: HEMATOCRIT 21.7 % (38.0-50.0); MCH 27.5 PG (29.0-34.0); MCHC 32.7 G/DL (30.0-36.0); MCV 84.1 FL (86-99); MEAN PLAT.VOLUME 10.5 uM^3 (9.0-12.4); PLATELET COUNT 181 K/uL (156-360); RBC DIS.WIDTH-CV 16.5 % (11.8-14.6); RBC DIS.WIDTH-SD 50.6 % (39-53); RED BLOOD COUNT 2.58 M/uL (4.00-5.50); WHITE BLOOD COUNT 12.2 K/uL (4.1-10.2)
[2016-06-23 06:38] LABS: EOSINOPHIL (%) 2.9 % (0-5); EOSINOPHIL COUNT 0.4 K/uL (0-0.3); IMMATURE GRANULOCYTE (%) 0.2 % (0.0-0.7); LYMPHOCYTE COUNT 0.9 K/uL (1.0-2.8); MONOCYTE (%) 5.5 % (3-12); MONOCYTE COUNT 0.7 K/uL (0-0.8); NEUTROPHIL (%) 84.2 % (45-76); NEUTROPHIL COUNT 10.3 K/uL (1.8-6.4)
[2016-06-23 06:40] LABS: ANION GAP 14 MEQ/L (2-14); CHLORIDE 107 MEQ/L (99-109); GFR ESTIMATE (CALCULATED) 30 mL/min/; GLUCOSE 110 mg/dL (70-99); MAGNESIUM 2.2 mg/dl (1.3-2.7); POTASSIUM 3.4 MEQ/L (3.7-5.4); SAMPLE HEMOLYSIS CHECK 0; SAMPLE ICTERIC CHECK 0; SAMPLE LIPEMIA CHECK 0; SODIUM 142 MEQ/L (136-147); UREA NITROGEN (BUN) 32 mg/dL (9-23)
[2016-06-24] VITALS (9 sets, daily range): BP systolic 131–170; BP diastolic 67–90
[2016-06-24 05:43] LABS: HEMATOCRIT 24.8 % (38.0-50.0); MCH 27.9 PG (29.0-34.0); MCHC 33.1 G/DL (30.0-36.0); MCV 84.4 FL (86-99); MEAN PLAT.VOLUME 10.2 uM^3 (9.0-12.4); PLATELET COUNT 206 K/uL (156-360); RBC DIS.WIDTH-CV 16.2 % (11.8-14.6); RBC DIS.WIDTH-SD 49.8 % (39-53); RED BLOOD COUNT 2.94 M/uL (4.00-5.50); WHITE BLOOD COUNT 10.2 K/uL (4.1-10.2)
[2016-06-24 06:12] LABS: ANION GAP 12 MEQ/L (2-14); CHLORIDE 105 MEQ/L (99-109); GFR ESTIMATE (CALCULATED) 28 mL/min/; GLUCOSE 95 mg/dL (70-99); MAGNESIUM 2.2 mg/dl (1.3-2.7); POTASSIUM 3.6 MEQ/L (3.7-5.4); SAMPLE HEMOLYSIS CHECK 0; SAMPLE ICTERIC CHECK 0; SAMPLE LIPEMIA CHECK 0; SODIUM 139 MEQ/L (136-147); UREA NITROGEN (BUN) 30 mg/dL (9-23)
[2016-06-24 06:23] LABS: EOSINOPHIL (%) 4.2 % (0-5); EOSINOPHIL COUNT 0.4 K/uL (0-0.3); IMMATURE GRANULOCYTE (%) 0.4 % (0.0-0.7); LYMPHOCYTE COUNT 1.3 K/uL (1.0-2.8); MONOCYTE (%) 6.7 % (3-12); MONOCYTE COUNT 0.7 K/uL (0-0.8); NEUTROPHIL (%) 76.2 % (45-76); NEUTROPHIL COUNT 7.8 K/uL (1.8-6.4)
[2016-06-25 03:28] VITALS: BP 153/82
[2016-06-25 06:12] LABS: EOSINOPHIL (%) 5.4 % (0-5); EOSINOPHIL COUNT 0.5 K/uL (0-0.3); HEMATOCRIT 24.7 % (38.0-50.0); IMMATURE GRANULOCYTE (%) 0.2 % (0.0-0.7); LYMPHOCYTE COUNT 1.2 K/uL (1.0-2.8); MCH 26.6 PG (29.0-34.0); MCHC 31.6 G/DL (30.0-36.0); MCV 84.3 FL (86-99); MEAN PLAT.VOLUME 10.1 uM^3 (9.0-12.4); MONOCYTE (%) 6.7 % (3-12); MONOCYTE COUNT 0.6 K/uL (0-0.8); PLATELET COUNT 259 K/uL (156-360); RBC DIS.WIDTH-CV 15.9 % (11.8-14.6); RBC DIS.WIDTH-SD 49.1 % (39-53); RED BLOOD COUNT 2.93 M/uL (4.00-5.50); WHITE BLOOD COUNT 9.3 K/uL (4.1-10.2)
[2016-06-25 06:30] LABS: ANION GAP 11 MEQ/L (2-14); CHLORIDE 104 MEQ/L (99-109); GFR ESTIMATE (CALCULATED) 27 mL/min/; GLUCOSE 121 mg/dL (70-99); POTASSIUM 3.5 MEQ/L (3.7-5.4); SAMPLE HEMOLYSIS CHECK 0; SAMPLE ICTERIC CHECK 0; SAMPLE LIPEMIA CHECK 0; SODIUM 138 MEQ/L (136-147); UREA NITROGEN (BUN) 31 mg/dL (9-23)
[2016-06-25 07:13] VITALS: BP 160/84
[2016-06-25 11:30] VITALS: BP 157/58
[2016-06-25] MEDS ORDERED: AMLODIPINE BESY10 MG PO (14:48)
[2016-06-25] MEDS ORDERED: SPIRONOLACTONE25 MG PO (14:48)
[2016-06-25] MEDS ORDERED: LASIX20 MG PO (14:48)
[2016-06-25] MEDS ORDERED: LABETALOL HCL100 MG PO (14:48)
[2016-06-25] MEDS ORDERED: DUONEB 2.5-0.5 M3 ML AEROSOL (14:48)
[2016-06-25 15:32] VITALS: BP 155/74
== END 2016-06-25 19:16 | DRG 208 ==
LOC: EME → EDBD 01:40 → EDOF 02:32 → 4WEST 02:32 → 3EAST 06-24 13:54
PROVIDERS: Emergency Medicine; Internal Medicine; Internal Medicine Critical Care Medicine; Internal Medicine Nephrology
PROC: 5A1945Z Respiratory Ventilation, 24-96 Consecutive Hours (ICD-10-PCS; principal; 2016-06-18)
PROC: 0BH17EZ Insertion of Endotracheal Airway into Trachea, Via Natural or Artificial Opening (ICD-10-PCS; 2016-06-18)
PROC: 30233N1 Transfusion of Nonautologous Red Blood Cells into Peripheral Vein, Percutaneous Approach (ICD-10-PCS; 2016-06-19)
PROC: 0VNTXZZ Release Prepuce, External Approach (ICD-10-PCS; 2016-06-21)
DX: J96.01 Acute respiratory failure with hypoxia (principal); J09.X1 Influenza due to identified novel influenza A virus with pneumonia; N17.9 Acute kidney failure, unspecified; I50.32 Chronic diastolic (congestive) heart failure; N18.4 Chronic kidney disease, stage 4 (severe); J90 Pleural effusion, not elsewhere classified; J81.1 Chronic pulmonary edema; F17.210 Nicotine dependence, cigarettes, uncomplicated; I12.9 Hypertensive chronic kidney disease with stage 1 through stage 4 chronic kidney disease, or unspecified chronic kidney disease; D63.1 Anemia in chronic kidney disease; J09.X2 Influenza due to identified novel influenza A virus with other respiratory manifestations; K21.9 Gastro-esophageal reflux disease without esophagitis; E87.8 Other disorders of electrolyte and fluid balance, not elsewhere classified; E83.42 Hypomagnesemia; E87.6 Hypokalemia; N47.2 Paraphimosis; G40.909 Epilepsy, unspecified, not intractable, without status epilepticus; E55.9 Vitamin D deficiency, unspecified; E86.1 Hypovolemia; E78.5 Hyperlipidemia, unspecified; E83.51 Hypocalcemia; Z91.19 Patient's noncompliance with other medical treatment and regimen
CPT/HCPCS: 36600; 71010; 80048; 80053; 80202; 81003; 82803; 83010 90; 83605; 83615; 83690; 83735; 83880; 84100; 84484; 85025; 85027; 85045; 85610; 85730; 86850; 86900; 86901; 86920; 87040; 87070; 87205; 87493; 87502; 87641; 93005; 94002; 94003; 94640 76; 94799; 97530 GO; 99202; 99281; 99285; J0360; J0456; J0881; J1644; J1940; J2543; J2704; J3260; J3370; J3475; J7030; J7050; J7644; P9016

== ENCOUNTER 2016-06-28 07:06 | Inpatient (IN) | payer OTHER ==
[~2016-06-28] VITALS: Ht 175.3 cm; Wt 81.8 kg
[2016-06-28] VITALS (14 sets, daily range): BP systolic 138–197; BP diastolic 64–116
[~2016-06-28 07:06] MED LIST changes: +DUONEB 2.5-0.5 M3 ML AEROSOL; +LASIX20 MG PO; +SPIRONOLACTONE25 MG PO
[2016-06-28 07:34] LABS: MCH 27.5 PG (29.0-34.0); MCHC 30.8 G/DL (30.0-36.0); MEAN PLAT.VOLUME 10.5 uM^3 (9.0-12.4); RBC DIS.WIDTH-CV 15.9 % (11.8-14.6); RBC DIS.WIDTH-SD 51.5 % (39-53); RED BLOOD COUNT 2.91 M/uL (4.00-5.50)
[2016-06-28 07:44] LABS: INTER. NORMALIZED RATIO 1.1; PROTHROMBIN TIME 11.2 (9.2-11.2)
[2016-06-28 07:49] LABS: CHLORIDE 104 mEq/L (99-109); SODIUM 135 mEq/L (136-147)
[2016-06-28 07:50] LABS: GLUCOSE 361 mg/dL (70-99)
[2016-06-28 07:52] LABS: ANION GAP 12 MEQ/L (2-14)
[2016-06-28 07:54] LABS: GFR ESTIMATE (CALCULATED) 27 mL/min/
[2016-06-28 07:55] LABS: UREA NITROGEN (BUN) 26 mg/dL (9-23)
[2016-06-28 08:00] LABS: MCV 89.3 FL (86-99); PLATELET COUNT 348 K/uL (156-360); TROP-I INTERPRETATION NEGATIVE; TROPONIN-I 0.02 ng/mL (0.0-0.30); WHITE BLOOD COUNT 16.3 K/uL (4.1-10.2)
[2016-06-28 08:07] LABS: BASE EXCESS -1.2 mEq/L (-3 to +3); BICARBONATE 23.6 mEq/L (22-26); METHEMOGLOBIN 1.3 % (0-1.5); PCO2 39 mm Hg (35-45); pH 7.39 (7.35-7.45)
[2016-06-28 08:12] LABS: PO2 86 mm Hg (80-100)
[2016-06-28 08:13] LABS: COMMENTS - BLOOD GASES A+C+; DEVICE MASK VENT
[2016-06-28 08:14] LABS: FI02 60 %
[2016-06-28 08:15] LABS: PEEP 5 CM/H20; PRES. SUPPORT 15 CM/H2O; TIDAL VOLUME 450 ML; TOTAL RESP RATE 30 resp/min
[2016-06-28 08:24] LABS: ADD MIUA? YES; BILIRUBIN NEGATIVE; BLOOD SMALL; COLOR YELLOW ((YELLOW)); GLUCOSE (STRIP) 50; KETONES NEGATIVE; LEUKOCYTES NEGATIVE; NITRITE NEGATIVE; PROTEIN (STRIP) >=500; SPECIFIC GRAVITY 1.009 (1.000-1.030); UROBILINOGEN 0.2 MG/DL (0.2-1.0)
[2016-06-28] MEDS ORDERED: MINOXIDIL2.5 MG PO (08:41)
[2016-06-28] MEDS ORDERED: IMDUR30 MG PO (08:42)
[2016-06-28] MEDS ORDERED: DUONEB 2.5-0.5 M3 ML AEROSOL (08:42)
[2016-06-28] MEDS ORDERED: AMLODIPINE BESY10 MG PO (08:43)
[2016-06-28] MEDS ORDERED: SPIRONOLACTONE25 MG PO (08:43)
[2016-06-28] MEDS ORDERED: LASIX20 MG PO (08:43)
[2016-06-28 08:49] LABS: BACTERIA RARE /HPF; EPITHELIAL CELLS RARE /HPF; MUCUS TRACE /LPF; UCUL ADDED? NO; WHITE BLOOD CELLS NONE SEEN /HPF (0-5)
[2016-06-28 14:47] LABS: METH RESISTANT S AUREUS PCR NEGATIVE (NEGATIVE)
[2016-06-28 15:10] LABS: PROBE CHECK PASS; SPECIMEN PROCESSING CONTROL PASS
[2016-06-28 17:34] LABS: INFLUENZA A VIRAL ANTIGEN NEGATIVE; INFLUENZA B VIRAL ANTIGEN NEGATIVE
[2016-06-28 17:59] LABS: POINT-OF-CARE METER ID UU14162636; POINT-OF-CARE USER ID 606021424
[2016-06-29] VITALS (25 sets, daily range): BP systolic 122–195; BP diastolic 58–102
[2016-06-29 09:31] LABS: EOSINOPHIL (%) 0 % (0-5); HEMATOCRIT 22.9 % (38.0-50.0); IMMATURE GRANULOCYTE (%) 0.5 % (0.0-0.7); INSTRUMENT ABS NEUTROPHIL CT 6.7 K/uL; LYMPHOCYTE COUNT 0.8 K/uL (1.0-2.8); MCH 28.2 PG (29.0-34.0); MCHC 32.3 G/DL (30.0-36.0); MCV 87.4 FL (86-99); MEAN PLAT.VOLUME 10.5 uM^3 (9.0-12.4); MONOCYTE (%) 5.4 % (3-12); MONOCYTE COUNT 0.4 K/uL (0-0.8); NEUTROPHIL (%) 84.4 % (45-76); NEUTROPHIL COUNT 6.7 K/uL (1.8-6.4); PLATELET COUNT 332 K/uL (156-360); RBC DIS.WIDTH-CV 15.8 % (11.8-14.6); RBC DIS.WIDTH-SD 49.6 % (39-53); RED BLOOD COUNT 2.62 M/uL (4.00-5.50)
[2016-06-29 09:33] LABS: WHITE BLOOD COUNT 7.9 K/uL (4.1-10.2)
[2016-06-29 09:43] LABS: ANION GAP 10 MEQ/L (2-14); CHLORIDE 108 MEQ/L (99-109); GFR ESTIMATE (CALCULATED) 24 mL/min/; MAGNESIUM 2.1 mg/dl (1.3-2.7); POTASSIUM 4.6 MEQ/L (3.7-5.4); SAMPLE HEMOLYSIS CHECK 0; SAMPLE ICTERIC CHECK 0; SAMPLE LIPEMIA CHECK 0; SODIUM 141 MEQ/L (136-147); UREA NITROGEN (BUN) 32 mg/dL (9-23)
[2016-06-29 09:45] LABS: GLUCOSE 112 mg/dL (70-99)
[2016-06-29 22:51] LABS: POINT-OF-CARE METER ID UU14162636
[2016-06-30] VITALS (18 sets, daily range): BP systolic 93–157; BP diastolic 46–78
[2016-06-30 05:13] LABS: POINT-OF-CARE METER ID UU14162636
[2016-06-30 12:22] LABS: POINT-OF-CARE METER ID UU14162636
[2016-06-30 16:48] LABS: POINT-OF-CARE METER ID UU14162636
[2016-06-30 17:21] LABS: POINT-OF-CARE METER ID UU14174217; POINT-OF-CARE USER ID 606021424
[2016-06-30 21:20] LABS: POINT-OF-CARE METER ID UU14162636
[2016-07-01] VITALS (8 sets, daily range): BP systolic 94–136; BP diastolic 46–66
[2016-07-01 08:24] LABS: POINT-OF-CARE METER ID UU14162636
[2016-07-01 10:09] LABS: EOSINOPHIL (%) 3.3 % (0-5); EOSINOPHIL COUNT 0.4 K/uL (0-0.3); HEMATOCRIT 24.3 % (38.0-50.0); IMMATURE GRANULOCYTE (%) 2.1 % (0.0-0.7); IMMATURE GRANULOCYTE COUNT 0.2 K/uL; LYMPHOCYTE COUNT 1.3 K/uL (1.0-2.8); MCH 27.6 PG (29.0-34.0); MCHC 31.3 G/DL (30.0-36.0); MCV 88.4 FL (86-99); MEAN PLAT.VOLUME 10.2 uM^3 (9.0-12.4); MONOCYTE COUNT 0.9 K/uL (0-0.8); NEUTROPHIL (%) 74.5 % (45-76); PLATELET COUNT 360 K/uL (156-360); RBC DIS.WIDTH-CV 16.3 % (11.8-14.6); RBC DIS.WIDTH-SD 51.4 % (39-53); RED BLOOD COUNT 2.75 M/uL (4.00-5.50)
[2016-07-01 10:15] LABS: WHITE BLOOD COUNT 10.8 K/uL (4.1-10.2)
[2016-07-01 10:41] LABS: ANION GAP 11 MEQ/L (2-14); CHLORIDE 105 MEQ/L (99-109); GFR ESTIMATE (CALCULATED) 24 mL/min/; GLUCOSE 112 mg/dL (70-99); POTASSIUM 3.7 MEQ/L (3.7-5.4); SAMPLE HEMOLYSIS CHECK 0; SAMPLE ICTERIC CHECK 0; SAMPLE LIPEMIA CHECK 0; SODIUM 136 MEQ/L (136-147); UREA NITROGEN (BUN) 35 mg/dL (9-23)
[2016-07-02 07:00] VITALS: BP 135/67
[2016-07-02 15:08] VITALS: BP 113/63
[2016-07-02 23:25] VITALS: BP 114/55
[2016-07-03 07:03] VITALS: BP 113/56
[2016-07-03] MEDS ORDERED: LONITEN2.5 MG PO (08:54)
[2016-07-03] MEDS ORDERED: AMOX TR-K CLV1 EAC3 PO (08:54)
[2016-07-03] MEDS ORDERED: LABETALOL HCL100 MG PO (08:54)
[2016-07-03] MEDS ORDERED: FUROSEMIDE80 MG PO (08:54)
[2016-07-03] MEDS ORDERED: CLONIDINE1 EAC2 TD (08:54)
== END 2016-07-03 14:31 | disposition home health service (06) | DRG 189 ==
LOC: EME 07:06 → 4WEST 08:24 → 5EAST 08:24 → EDOF 08:24 → 4WEST 13:07 → 5EAST 07-01 15:07
PROVIDERS: Emergency Medicine; Family Medicine; Internal Medicine; Internal Medicine Nephrology
PROC: 5A09458 Assistance with Respiratory Ventilation, 24-96 Consecutive Hours, Intermittent Positive Airway Pressure (ICD-10-PCS; principal; 2016-06-28)
DX: J96.01 Acute respiratory failure with hypoxia (principal); J44.0 Chronic obstructive pulmonary disease with (acute) lower respiratory infection; J15.9 Unspecified bacterial pneumonia; N17.9 Acute kidney failure, unspecified; I13.0 Hypertensive heart and chronic kidney disease with heart failure and stage 1 through stage 4 chronic kidney disease, or unspecified chronic kidney disease; I50.30 Unspecified diastolic (congestive) heart failure; N05.2 Unspecified nephritic syndrome with diffuse membranous glomerulonephritis; N18.4 Chronic kidney disease, stage 4 (severe); I16.0 Hypertensive urgency; I47.2 Ventricular tachycardia; Z99.81 Dependence on supplemental oxygen; I25.10 Atherosclerotic heart disease of native coronary artery without angina pectoris; G40.909 Epilepsy, unspecified, not intractable, without status epilepticus; R73.9 Hyperglycemia, unspecified; D64.9 Anemia, unspecified; E78.5 Hyperlipidemia, unspecified; K21.9 Gastro-esophageal reflux disease without esophagitis; F17.200 Nicotine dependence, unspecified, uncomplicated; Y95 Nosocomial condition; Z72.6 Gambling and betting; Z91.19 Patient's noncompliance with other medical treatment and regimen; Z86.718 Personal history of other venous thrombosis and embolism
CPT/HCPCS: 36600; 71010; 80048; 81003; 82803; 82948; 83735; 83880; 84100; 84484; 85025; 85027; 85610; 87040; 87502; 87641; 93005; 94002; 94003; 94640; 94640 76; 94760; 94799; 99202; 99281; 99285; J0881; J1644; J1815; J1940; J2543; J2920; J2930; J3370; J7050; J7644; S0028

== ENCOUNTER 2016-07-13 14:32 | Inpatient (IN) | payer OTHER ==
[2016-07-13] VITALS (15 sets, daily range): BP systolic 146–174; BP diastolic 75–101
[~2016-07-13] VITALS: Ht 172.7 cm; Wt 76.0 kg
[~2016-07-13 14:32] MED LIST changes: +AMOX TR-K CLV1 EAC3 PO; +FUROSEMIDE80 MG PO
[2016-07-13 15:10] LABS: BASE EXCESS -1.7 mEq/L (-3 to +3); BICARBONATE 22.9 mEq/L (22-26); CARBOXY HGB 3.7 % (0-5); METHEMOGLOBIN 1.6 % (0-1.5); PCO2 37 mm Hg (35-45)
[2016-07-13 15:40] LABS: COMMENTS - BLOOD GASES C+; CONTINUOUS POS AIRWAY PRESSURE 5 cm H2O; DEVICE MASK VENT; FI02 40 %; MODE SPONT; PO2 110 mm Hg (80-100); PRES. SUPPORT 10 CM/H2O; SITE LR; TOTAL RESP RATE 19 resp/min
[2016-07-13 15:59] LABS: BASOPHIL COUNT 0.1 K/uL (0-0.1); EOSINOPHIL (%) 1.4 % (0-5); EOSINOPHIL COUNT 0.2 K/uL (0-0.3); HEMATOCRIT 24.1 % (38.0-50.0); IMMATURE GRANULOCYTE (%) 0.2 % (0.0-0.7); INSTRUMENT ABS NEUTROPHIL CT 10.7 K/uL; MCHC 31.5 G/DL (30.0-36.0); MCV 85.8 FL (86-99); MONOCYTE COUNT 0.5 K/uL (0-0.8); NEUTROPHIL (%) 86.4 % (45-76); NEUTROPHIL COUNT 10.7 K/uL (1.8-6.4); RBC DIS.WIDTH-CV 16.7 % (11.8-14.6); RED BLOOD COUNT 2.81 M/uL (4.00-5.50); WHITE BLOOD COUNT 12.4 K/uL (4.1-10.2)
[2016-07-13 16:06] LABS: CHLORIDE 109 mEq/L (99-109)
[2016-07-13 16:07] LABS: POTASSIUM 4.1 mEq/L (3.7-5.4); SODIUM 142 mEq/L (136-147)
[2016-07-13 16:08] LABS: GLUCOSE 78 mg/dL (70-99)
[2016-07-13 16:10] LABS: ANION GAP 15 MEQ/L (2-14)
[2016-07-13 16:12] LABS: GFR ESTIMATE (CALCULATED) 30 mL/min/
[2016-07-13 16:13] LABS: UREA NITROGEN (BUN) 31 mg/dL (9-23)
[2016-07-13 16:20] LABS: TROP-I INTERPRETATION NEGATIVE; TROPONIN-I 0.02 ng/mL (0.0-0.30)
[2016-07-13 16:32] LABS: MEAN PLAT.VOLUME 10.4 uM^3 (9.0-12.4); PLATELET COUNT 219 K/uL (156-360)
[2016-07-13 21:51] LABS: METH RESISTANT S AUREUS PCR NEGATIVE (NEGATIVE)
[2016-07-13 21:58] LABS: PROBE CHECK PASS; SPECIMEN PROCESSING CONTROL PASS
[2016-07-13 22:20] LABS: TROP-I INTERPRETATION NEGATIVE; TROPONIN-I 0.03 ng/mL (0.0-0.30)
[2016-07-14] VITALS (13 sets, daily range): BP systolic 149–192; BP diastolic 74–107
[2016-07-14 05:01] LABS: HEMATOCRIT 21.4 % (38.0-50.0); MCHC 31.8 G/DL (30.0-36.0); MCV 84.9 FL (86-99); MEAN PLAT.VOLUME 9.8 uM^3 (9.0-12.4); PLATELET COUNT 186 K/uL (156-360); RBC DIS.WIDTH-CV 16.5 % (11.8-14.6); RBC DIS.WIDTH-SD 50.4 % (39-53); RED BLOOD COUNT 2.52 M/uL (4.00-5.50); WHITE BLOOD COUNT 8.8 K/uL (4.1-10.2)
[2016-07-14 05:09] LABS: CHLORIDE 109 mEq/L (99-109); POTASSIUM 3.8 mEq/L (3.7-5.4); SODIUM 141 mEq/L (136-147)
[2016-07-14 05:11] LABS: GLUCOSE 95 mg/dL (70-99)
[2016-07-14 05:12] LABS: ANION GAP 12 MEQ/L (2-14)
[2016-07-14 05:15] LABS: GFR ESTIMATE (CALCULATED) 29 mL/min/
[2016-07-14 05:16] LABS: UREA NITROGEN (BUN) 32 mg/dL (9-23)
[2016-07-14 05:18] LABS: TROP-I INTERPRETATION NEGATIVE; TROPONIN-I 0.01 ng/mL (0.0-0.30)
[2016-07-14 06:10] LABS: HEMATOCRIT 22.6 % (38.0-50.0); MCV 85.3 FL (86-99)
[2016-07-15] VITALS (10 sets, daily range): BP systolic 147–196; BP diastolic 70–96
[2016-07-15 05:59] LABS: EOSINOPHIL (%) 3.9 % (0-5); EOSINOPHIL COUNT 0.4 K/uL (0-0.3); HEMATOCRIT 24.8 % (38.0-50.0); IMMATURE GRANULOCYTE (%) 0.4 % (0.0-0.7); INSTRUMENT ABS NEUTROPHIL CT 7.4 K/uL; LYMPHOCYTE COUNT 1.2 K/uL (1.0-2.8); MCH 26.6 PG (29.0-34.0); MCHC 30.6 G/DL (30.0-36.0); MCV 86.7 FL (86-99); MEAN PLAT.VOLUME 10.2 uM^3 (9.0-12.4); MONOCYTE (%) 5.7 % (3-12); MONOCYTE COUNT 0.6 K/uL (0-0.8); NEUTROPHIL (%) 77.2 % (45-76); NEUTROPHIL COUNT 7.4 K/uL (1.8-6.4); PLATELET COUNT 224 K/uL (156-360); RBC DIS.WIDTH-CV 16.8 % (11.8-14.6); RBC DIS.WIDTH-SD 51.8 % (39-53); RED BLOOD COUNT 2.86 M/uL (4.00-5.50); WHITE BLOOD COUNT 9.6 K/uL (4.1-10.2)
[2016-07-15 06:48] LABS: ANION GAP 10 MEQ/L (2-14); CHLORIDE 108 MEQ/L (99-109); GFR ESTIMATE (CALCULATED) 31 mL/min/; GLUCOSE 87 mg/dL (70-99); POTASSIUM 3.8 MEQ/L (3.7-5.4); SAMPLE HEMOLYSIS CHECK 0; SAMPLE ICTERIC CHECK 0; SAMPLE LIPEMIA CHECK 0; SODIUM 141 MEQ/L (136-147); UREA NITROGEN (BUN) 29 mg/dL (9-23)
[2016-07-16] VITALS (8 sets, daily range): BP systolic 142–193; BP diastolic 70–100
[2016-07-16 07:27] LABS: ANION GAP 10 MEQ/L (2-14); CHLORIDE 109 MEQ/L (99-109); GFR ESTIMATE (CALCULATED) 34 mL/min/; GLUCOSE 80 mg/dL (70-99); POTASSIUM 3.7 MEQ/L (3.7-5.4); SAMPLE HEMOLYSIS CHECK 0; SAMPLE ICTERIC CHECK 0; SAMPLE LIPEMIA CHECK 0; SODIUM 143 MEQ/L (136-147); UREA NITROGEN (BUN) 27 mg/dL (9-23)
[2016-07-16 07:30] LABS: HEMATOCRIT 22.2 % (38.0-50.0); MCHC 31.5 G/DL (30.0-36.0); MCV 85.7 FL (86-99); MEAN PLAT.VOLUME 10.7 uM^3 (9.0-12.4); PLATELET COUNT 216 K/uL (156-360); RBC DIS.WIDTH-CV 16.7 % (11.8-14.6); RBC DIS.WIDTH-SD 51.3 % (39-53); RED BLOOD COUNT 2.59 M/uL (4.00-5.50); WHITE BLOOD COUNT 8.6 K/uL (4.1-10.2)
[2016-07-17 03:15] VITALS: BP 152/78
[2016-07-17 06:11] LABS: EOSINOPHIL COUNT 0.4 K/uL (0-0.3); HEMATOCRIT 24.7 % (38.0-50.0); IMMATURE GRANULOCYTE (%) 0.4 % (0.0-0.7); INSTRUMENT ABS NEUTROPHIL CT 8.6 K/uL; LYMPHOCYTE COUNT 1.3 K/uL (1.0-2.8); MCH 26.1 PG (29.0-34.0); MEAN PLAT.VOLUME 9.6 uM^3 (9.0-12.4); MONOCYTE (%) 4.8 % (3-12); MONOCYTE COUNT 0.5 K/uL (0-0.8); NEUTROPHIL COUNT 8.6 K/uL (1.8-6.4); PLATELET COUNT 222 K/uL (156-360); RBC DIS.WIDTH-CV 16.8 % (11.8-14.6); RED BLOOD COUNT 2.84 M/uL (4.00-5.50); WHITE BLOOD COUNT 10.9 K/uL (4.1-10.2)
[2016-07-17 06:37] LABS: ANION GAP 11 MEQ/L (2-14); CHLORIDE 108 MEQ/L (99-109); GFR ESTIMATE (CALCULATED) 32 mL/min/; POTASSIUM 3.9 MEQ/L (3.7-5.4); SAMPLE HEMOLYSIS CHECK 0; SAMPLE ICTERIC CHECK 0; SAMPLE LIPEMIA CHECK 0; SODIUM 141 MEQ/L (136-147); UREA NITROGEN (BUN) 26 mg/dL (9-23)
[2016-07-17 06:42] LABS: GLUCOSE 101 mg/dL (70-99)
[2016-07-17 08:00] VITALS: BP 180/82
[2016-07-17 11:58] VITALS: BP 169/85
[2016-07-17 12:32] LABS: ALKALINE PHOSPHATASE 61 IU/L (3-129); DIRECT BILIRUBIN 0.2 mg/dL (0.0-0.3); IRON 60 MCG/DL (35-150); TOTAL BILIRUBIN 0.6 MG/DL (0.0-1.0)
[2016-07-17 15:28] VITALS: BP 163/88
[2016-07-17 18:17] VITALS: BP 165/96
[2016-07-17 19:57] LABS: BASE EXCESS -2.3 mEq/L (-3 to +3); BICARBONATE 23.2 mEq/L (22-26); METHEMOGLOBIN 1.5 % (0-1.5); pH 7.35 (7.35-7.45)
[2016-07-17 19:58] LABS: DEVICE NRB MASK; O2 FLOW 15 L/MIN; PCO2 42 mm Hg (35-45); PO2 204 mm Hg (80-100); SITE R RAD
[2016-07-17 20:18] LABS: HEMATOCRIT 22.6 % (38.0-50.0); MCH 27.2 PG (29.0-34.0); MCHC 31.4 G/DL (30.0-36.0); MCV 86.6 FL (86-99); MEAN PLAT.VOLUME 9.3 uM^3 (9.0-12.4); PLATELET COUNT 212 K/uL (156-360); RBC DIS.WIDTH-SD 53.3 % (39-53); RED BLOOD COUNT 2.61 M/uL (4.00-5.50)
[2016-07-17 20:27] LABS: ANION GAP 9 MEQ/L (2-14); CHLORIDE 108 MEQ/L (99-109); SAMPLE HEMOLYSIS CHECK 0; SAMPLE ICTERIC CHECK 0; SAMPLE LIPEMIA CHECK 0; SODIUM 141 MEQ/L (136-147); TOTAL BILIRUBIN 0.5 MG/DL (0.0-1.0)
[2016-07-17 20:34] LABS: ALKALINE PHOSPHATASE 54 IU/L (3-129); GFR ESTIMATE (CALCULATED) 32 mL/min/; GLUCOSE 121 mg/dL (70-99); UREA NITROGEN (BUN) 27 mg/dL (9-23)
[2016-07-17 20:37] LABS: TROP-I INTERPRETATION NEGATIVE; TROPONIN-I 0.03 ng/mL (0.0-0.30)
[2016-07-17 20:40] LABS: INTER. NORMALIZED RATIO 1.1; PROTHROMBIN TIME 11.4 (9.2-11.2)
[2016-07-17 20:48] LABS: D-DIMER ELISA > 4.00 mg/L FEU (< 0.57)
[2016-07-17 23:25] VITALS: BP 146/83
[2016-07-18] VITALS (19 sets, daily range): BP systolic 136–213; BP diastolic 73–112
[2016-07-18 02:19] LABS: TROP-I INTERPRETATION NEGATIVE; TROPONIN-I 0.02 ng/mL (0.0-0.30)
[2016-07-18 08:59] LABS: EOSINOPHIL (%) 3.8 % (0-5); EOSINOPHIL COUNT 0.3 K/uL (0-0.3); HEMATOCRIT 21.6 % (38.0-50.0); IMMATURE GRANULOCYTE (%) 0.3 % (0.0-0.7); INSTRUMENT ABS NEUTROPHIL CT 6.5 K/uL; LYMPHOCYTE COUNT 1.2 K/uL (1.0-2.8); MCV 87.1 FL (86-99); MEAN PLAT.VOLUME 10.3 uM^3 (9.0-12.4); MONOCYTE (%) 5.8 % (3-12); MONOCYTE COUNT 0.5 K/uL (0-0.8); NEUTROPHIL (%) 76.2 % (45-76); NEUTROPHIL COUNT 6.5 K/uL (1.8-6.4); PLATELET COUNT 191 K/uL (156-360); RBC DIS.WIDTH-CV 17.2 % (11.8-14.6); RBC DIS.WIDTH-SD 54.4 % (39-53); RED BLOOD COUNT 2.48 M/uL (4.00-5.50); WHITE BLOOD COUNT 8.6 K/uL (4.1-10.2)
[2016-07-18 09:21] LABS: CHLORIDE 110 mEq/L (99-109); POTASSIUM 4.2 mEq/L (3.7-5.4); SODIUM 142 mEq/L (136-147)
[2016-07-18 09:22] LABS: GLUCOSE 101 mg/dL (70-99)
[2016-07-18 09:24] LABS: ANION GAP 9 MEQ/L (2-14)
[2016-07-18 09:26] LABS: GFR ESTIMATE (CALCULATED) 31 mL/min/
[2016-07-18 09:27] LABS: UREA NITROGEN (BUN) 29 mg/dL (9-23)
[2016-07-18 09:32] LABS: TROP-I INTERPRETATION NEGATIVE; TROPONIN-I 0.02 ng/mL (0.0-0.30)
[2016-07-19] VITALS (7 sets, daily range): BP systolic 146–179; BP diastolic 80–92
[2016-07-19 10:06] LABS: HEMATOCRIT 26.8 % (38.0-50.0); MCH 27.5 PG (29.0-34.0); MCHC 31.3 G/DL (30.0-36.0); MCV 87.9 FL (86-99); PLATELET COUNT 189 K/uL (156-360); RBC DIS.WIDTH-CV 16.8 % (11.8-14.6); RBC DIS.WIDTH-SD 54.3 % (39-53)
[2016-07-19 10:28] LABS: RED BLOOD COUNT 3.05 M/uL (4.00-5.50)
[2016-07-19 10:52] LABS: ANION GAP 12 MEQ/L (2-14); CHLORIDE 108 MEQ/L (99-109); GFR ESTIMATE (CALCULATED) 31 mL/min/; GLUCOSE 136 mg/dL (70-99); SAMPLE HEMOLYSIS CHECK 0; SAMPLE ICTERIC CHECK 0; SAMPLE LIPEMIA CHECK 0; SODIUM 144 MEQ/L (136-147); UREA NITROGEN (BUN) 30 mg/dL (9-23)
[2016-07-20] VITALS (12 sets, daily range): BP systolic 137–195; BP diastolic 74–96
[2016-07-20 06:41] LABS: ANION GAP 10 MEQ/L (2-14); CHLORIDE 106 MEQ/L (99-109); GFR ESTIMATE (CALCULATED) 30 mL/min/; MAGNESIUM 1.9 mg/dl (1.3-2.7); POTASSIUM 4.2 MEQ/L (3.7-5.4); SAMPLE HEMOLYSIS CHECK 0; SAMPLE ICTERIC CHECK 0; SAMPLE LIPEMIA CHECK 0; SODIUM 141 MEQ/L (136-147); UREA NITROGEN (BUN) 32 mg/dL (9-23); URIC ACID 8.5 mg/dL (3.1-9.2)
[2016-07-20 06:49] LABS: GLUCOSE 79 mg/dL (70-99)
[2016-07-20 12:16] LABS: HEMATOCRIT 26.6 % (38.0-50.0); MCH 27.1 PG (29.0-34.0); MCHC 30.8 G/DL (30.0-36.0); MCV 87.8 FL (86-99); MEAN PLAT.VOLUME 11.3 uM^3 (9.0-12.4); PLATELET COUNT 223 K/uL (156-360); RBC DIS.WIDTH-CV 16.9 % (11.8-14.6); RBC DIS.WIDTH-SD 53.2 % (39-53); RED BLOOD COUNT 3.03 M/uL (4.00-5.50); WHITE BLOOD COUNT 9.4 K/uL (4.1-10.2)
[2016-07-21] VITALS (7 sets, daily range): BP systolic 136–183; BP diastolic 71–100
[2016-07-21 05:55] LABS: ANION GAP 8 MEQ/L (2-14); CHLORIDE 106 MEQ/L (99-109); GFR ESTIMATE (CALCULATED) 27 mL/min/; GLUCOSE 83 mg/dL (70-99); POTASSIUM 4.2 MEQ/L (3.7-5.4); SAMPLE HEMOLYSIS CHECK 0; SAMPLE ICTERIC CHECK 0; SAMPLE LIPEMIA CHECK 0; SODIUM 142 MEQ/L (136-147); UREA NITROGEN (BUN) 35 mg/dL (9-23)
[2016-07-21 12:12] LABS: UR CREATININE CONCENTRATION 32.6 MG/DL
[2016-07-22 00:58] VITALS: BP 102/100
[2016-07-22 04:26] VITALS: BP 183/99
[2016-07-22 06:01] VITALS: BP 210/110
[2016-07-22 07:22] LABS: HEMATOCRIT 25.2 % (38.0-50.0); MCH 26.7 PG (29.0-34.0); MCHC 30.6 G/DL (30.0-36.0); MCV 87.5 FL (86-99); MEAN PLAT.VOLUME 10.1 uM^3 (9.0-12.4); PLATELET COUNT 193 K/uL (156-360); RBC DIS.WIDTH-CV 16.5 % (11.8-14.6); RBC DIS.WIDTH-SD 52.9 % (39-53); RED BLOOD COUNT 2.88 M/uL (4.00-5.50); WHITE BLOOD COUNT 8.2 K/uL (4.1-10.2)
[2016-07-22 07:28] LABS: ANION GAP 9 MEQ/L (2-14); CHLORIDE 105 MEQ/L (99-109); GFR ESTIMATE (CALCULATED) 27 mL/min/; GLUCOSE 100 mg/dL (70-99); GLUCOSE 102 mg/dL (70-99); MAGNESIUM 1.9 mg/dl (1.3-2.7); POTASSIUM 4.3 MEQ/L (3.7-5.4); SAMPLE HEMOLYSIS CHECK 0; SAMPLE ICTERIC CHECK 0; SAMPLE LIPEMIA CHECK 0; SODIUM 142 MEQ/L (136-147); UREA NITROGEN (BUN) 38 mg/dL (9-23)
[2016-07-22 08:05] VITALS: BP 190/110
[2016-07-22 14:06] VITALS: BP 170/96
[2016-07-22 16:34] LABS: TYPE OF FLUID PLEURAL
[2016-07-22 17:17] VITALS: BP 143/89
[2016-07-22 18:24] LABS: BODY FLUID EOSINOPHILS 3 % (0-25); BODY FLUID RBC'S 20000 /MM^3 (0-100); BODY FLUID WBC'S 153 /MM^3 (0-500); MONONUCLEAR WBC'S 34 %; POLYNUCLEAR WBC'S 63 % (0-25)
[2016-07-22 20:08] LABS: BODY FLUID LDH 48 IU/L
[2016-07-22 20:40] LABS: BODY FLUID PROTEIN < 3.0 G/DL
[2016-07-23 00:48] VITALS: BP 168/70
[2016-07-23 07:49] LABS: ANION GAP 11 MEQ/L (2-14); CHLORIDE 105 MEQ/L (99-109); GFR ESTIMATE (CALCULATED) 25 mL/min/; GLUCOSE 91 mg/dL (70-99); POTASSIUM 4.4 MEQ/L (3.7-5.4); SAMPLE HEMOLYSIS CHECK 0; SAMPLE ICTERIC CHECK 0; SAMPLE LIPEMIA CHECK 0; SODIUM 143 MEQ/L (136-147); UREA NITROGEN (BUN) 41 mg/dL (9-23)
[2016-07-23 08:14] VITALS: BP 103/82
[2016-07-23 12:00] VITALS: BP 148/80
[2016-07-23 15:10] VITALS: BP 170/82
[2016-07-23 19:45] VITALS: BP 193/110
[2016-07-23 20:45] VITALS: BP 176/92
[2016-07-24] VITALS: BP 164/88
[2016-07-24 01:46] LABS: BODY FLUID PH 8.1 (())
[2016-07-24 07:43] LABS: ANION GAP 7 MEQ/L (2-14); CHLORIDE 103 MEQ/L (99-109); GFR ESTIMATE (CALCULATED) 27 mL/min/; GLUCOSE 85 mg/dL (70-99); POTASSIUM 4.3 MEQ/L (3.7-5.4); SAMPLE HEMOLYSIS CHECK 0; SAMPLE ICTERIC CHECK 0; SAMPLE LIPEMIA CHECK 0; SODIUM 141 MEQ/L (136-147); UREA NITROGEN (BUN) 44 mg/dL (9-23)
[2016-07-24 08:12] VITALS: BP 188/85
[2016-07-24 11:28] VITALS: BP 160/78
[2016-07-24 12:25] LABS: ADD MIUA? YES; BILIRUBIN NEGATIVE; BLOOD SMALL; COLOR YELLOW ((YELLOW)); GLUCOSE (STRIP) NEGATIVE; KETONES NEGATIVE; LEUKOCYTES NEGATIVE; NITRITE NEGATIVE; PROTEIN (STRIP) 100; SPECIFIC GRAVITY 1.009 (1.000-1.030); UROBILINOGEN 0.2 MG/DL (0.2-1.0)
[2016-07-24 12:37] LABS: BACTERIA RARE /HPF; EPITHELIAL CELLS RARE /HPF; MUCUS NONE SEEN /LPF; RED BLOOD CELLS 0-5 /HPF (0-5); UCUL ADDED? NO; WHITE BLOOD CELLS 0-5 /HPF (0-5)
[2016-07-24 15:55] VITALS: BP 138/80
[2016-07-24 16:06] VITALS: BP 150/82
[2016-07-24 23:28] VITALS: BP 186/94
[2016-07-25 06:42] LABS: ANION GAP 9 MEQ/L (2-14); CHLORIDE 100 MEQ/L (99-109); GFR ESTIMATE (CALCULATED) 25 mL/min/; GLUCOSE 85 mg/dL (70-99); POTASSIUM 4.4 MEQ/L (3.7-5.4); SAMPLE HEMOLYSIS CHECK 0; SAMPLE ICTERIC CHECK 0; SAMPLE LIPEMIA CHECK 0; SODIUM 140 MEQ/L (136-147); UREA NITROGEN (BUN) 46 mg/dL (9-23)
[2016-07-25 07:50] VITALS: BP 178/90
[2016-07-25 10:56] VITALS: BP 158/78
[2016-07-25 16:27] VITALS: BP 151/81
[2016-07-26] VITALS: BP 173/91
[2016-07-26 03:59] VITALS: BP 170/90
[2016-07-26 07:15] LABS: ANION GAP 9 MEQ/L (2-14); CHLORIDE 99 MEQ/L (99-109); GFR ESTIMATE (CALCULATED) 27 mL/min/; GLUCOSE 90 mg/dL (70-99); POTASSIUM 4.3 MEQ/L (3.7-5.4); SAMPLE HEMOLYSIS CHECK 0; SAMPLE ICTERIC CHECK 0; SAMPLE LIPEMIA CHECK 0; SODIUM 137 MEQ/L (136-147); UREA NITROGEN (BUN) 45 mg/dL (9-23)
[2016-07-26 07:47] VITALS: BP 172/88
[2016-07-26 10:44] VITALS: BP 140/88
[2016-07-26] MEDS ORDERED: BUMETANIDE1 MG PO (12:58)
[2016-07-26] MEDS ORDERED: CLONIDINE HCL0.3 MG PO (12:58)
[2016-07-26] MEDS ORDERED: POLYETHYLENE GL17 GM PO (12:58)
[2016-07-26] MEDS ORDERED: SPIRONOLACTONE50 MG PO (12:58)
[2016-07-26] MEDS ORDERED: SPIRIVA RESPIMAT4 GM IH (12:58)
[2016-07-26] MEDS ORDERED: LISINOPRIL20 MG PO (12:58)
== END 2016-07-26 14:39 | DRG 304 ==
LOC: EME → EDBD 14:32 → EME 14:32 → 4WEST 17:10 → 4SOUTH 17:10 → EDOF 17:10 → 4WEST 19:52 → 4SOUTH 07-15 12:29 → 5SOUTH 07-17 18:04
PROVIDERS: Emergency Medicine; Hospitalist; Internal Medicine; Internal Medicine Nephrology
PROC: 0W9930Z Drainage of Right Pleural Cavity with Drainage Device, Percutaneous Approach (ICD-10-PCS; principal; 2016-07-22)
DX: I16.0 Hypertensive urgency (principal); I13.0 Hypertensive heart and chronic kidney disease with heart failure and stage 1 through stage 4 chronic kidney disease, or unspecified chronic kidney disease; I50.33 Acute on chronic diastolic (congestive) heart failure; N18.4 Chronic kidney disease, stage 4 (severe); J96.21 Acute and chronic respiratory failure with hypoxia; F17.210 Nicotine dependence, cigarettes, uncomplicated; E66.9 Obesity, unspecified; E78.5 Hyperlipidemia, unspecified; Z91.19 Patient's noncompliance with other medical treatment and regimen; G40.909 Epilepsy, unspecified, not intractable, without status epilepticus; J44.9 Chronic obstructive pulmonary disease, unspecified; E88.09 Other disorders of plasma-protein metabolism, not elsewhere classified; D63.1 Anemia in chronic kidney disease; K21.9 Gastro-esophageal reflux disease without esophagitis; D59.4 Other nonautoimmune hemolytic anemias; N04.7 Nephrotic syndrome with diffuse crescentic glomerulonephritis; Z99.81 Dependence on supplemental oxygen; E87.2 Acidosis; N17.9 Acute kidney failure, unspecified; I27.2 Other secondary pulmonary hypertension; I07.1 Rheumatic tricuspid insufficiency
CPT/HCPCS: 36600; 71010; 78582; 80048; 80048 91; 80053; 80069; 80076; 81003; 82272; 82570; 82607; 82746; 82803; 82945; 83540; 83615 91; 83735; 83880; 83986 90; 84156; 84157; 84466; 84484; 84550; 85014; 85018; 85025; 85027; 85379; 85610; 86850; 86900; 86901; 86920; 87070; 87075; 87205; 87641; 88108; 88305; 89051; 93005; 94002; 94640; 94640 76; 94760; 94799; 97530 GP; 99202; 99281; 99285; A9539; A9540; J0360; J1644; J1940; J2270; P9016

== ENCOUNTER 2016-09-03 17:31 | Emergency (ER) | payer OTHER ==
[~2016-09-03] VITALS: Ht 172.7 cm; Wt 72.2 kg
[~2016-09-03 17:31] MED LIST changes: +CLONIDINE HCL0.3 MG PO; +POLYETHYLENE GL17 GM PO; +SPIRIVA RESPIMAT4 GM IH; +SPIRONOLACTONE50 MG PO
[2016-09-03 18:28] LABS: CARBON DIOXIDE (BICARBONATE) 24.3 MEQ/L (20-31)
[2016-09-03 18:33] LABS: CHLORIDE 107 mEq/L (99-109); POTASSIUM 4.2 mEq/L (3.7-5.4); SODIUM 137 mEq/L (136-147)
[2016-09-03 18:35] LABS: GLUCOSE 86 mg/dL (70-99)
[2016-09-03 18:36] LABS: ANION GAP 9 MEQ/L (2-14)
[2016-09-03 18:39] LABS: GFR ESTIMATE (CALCULATED) 16 mL/min/; UREA NITROGEN (BUN) 39 mg/dL (9-23)
[2016-09-03 18:44] LABS: HEMATOCRIT 21.1 % (38.0-50.0); MCH 25.9 PG (29.0-34.0); MCHC 32.7 G/DL (30.0-36.0); MCV 79.3 FL (86-99); MEAN PLAT.VOLUME 9.4 uM^3 (9.0-12.4); PLATELET COUNT 163 K/uL (156-360); RBC DIS.WIDTH-CV 17.5 % (11.8-14.6); RBC DIS.WIDTH-SD 50.2 % (39-53); RED BLOOD COUNT 2.66 M/uL (4.00-5.50); WHITE BLOOD COUNT 7.1 K/uL (4.1-10.2)
[2016-09-03 18:46] LABS: D-DIMER ELISA > 4.00 mg/L FEU (< 0.57)
[2016-09-03 18:47] LABS: TROP-I INTERPRETATION NEGATIVE; TROPONIN-I 0.03 ng/mL (0.0-0.30)
[2016-09-04 00:04] VITALS: BP 143/72
== END 2016-09-04 00:07 | disposition short-term general hospital (02) ==
LOC: EME 17:31
PROVIDERS: Emergency Medicine
DX: I71.2 Thoracic aortic aneurysm, without rupture (principal); D64.9 Anemia, unspecified; I10 Essential (primary) hypertension; N17.9 Acute kidney failure, unspecified; E87.70 Fluid overload, unspecified; Z87.891 Personal history of nicotine dependence; K21.9 Gastro-esophageal reflux disease without esophagitis; R56.9 Unspecified convulsions
CPT/HCPCS: 71020; 71250; 80048; 82803; 83605; 83880; 84484; 85027; 85379; 86900; 86901; 86920; 87040; 93005; 94640; 99281; 99285; J0696; J7050

== ENCOUNTER 2016-10-15 13:46 | Observation (INO) | payer OTHER ==
[~2016-10-15] VITALS: Ht 172.7 cm; Wt 55.3 kg
[2016-10-15 15:36] LABS: EOSINOPHIL (%) 0.8 % (0-5); EOSINOPHIL COUNT 0.1 K/uL (0-0.3); HEMATOCRIT 30.9 % (38.0-50.0); IMMATURE GRANULOCYTE (%) 0.7 % (0.0-0.7); IMMATURE GRANULOCYTE COUNT 0.1 K/uL; INSTRUMENT ABS NEUTROPHIL CT 13.6 K/uL; MCH 27.3 PG (29.0-34.0); MCHC 31.1 G/DL (30.0-36.0); MCV 87.8 FL (86-99); MEAN PLAT.VOLUME 9.6 uM^3 (9.0-12.4); MONOCYTE (%) 6.3 % (3-12); NEUTROPHIL (%) 85.4 % (45-76); NEUTROPHIL COUNT 13.6 K/uL (1.8-6.4); PLATELET COUNT 293 K/uL (156-360); RBC DIS.WIDTH-CV 14.4 % (11.8-14.6); RBC DIS.WIDTH-SD 45.5 % (39-53); RED BLOOD COUNT 3.52 M/uL (4.00-5.50); WHITE BLOOD COUNT 15.9 K/uL (4.1-10.2)
[2016-10-15 15:47] LABS: CHLORIDE 96 mEq/L (99-109); INTER. NORMALIZED RATIO 1.1; POTASSIUM 4.7 mEq/L (3.7-5.4); PROTHROMBIN TIME 11.7 (9.2-11.2); PTT 31.3 (25-32); SODIUM 138 mEq/L (136-147)
[2016-10-15 15:48] LABS: MAGNESIUM 1.5 mg/dL (1.3-2.7)
[2016-10-15 15:49] LABS: GLUCOSE 104 mg/dL (70-99)
[2016-10-15 15:50] LABS: ANION GAP 14 MEQ/L (2-14)
[2016-10-15 15:53] LABS: GFR ESTIMATE (CALCULATED) 16 mL/min/
[2016-10-15 15:54] LABS: UREA NITROGEN (BUN) 23 mg/dL (9-23)
[2016-10-15 16:01] LABS: TROP-I INTERPRETATION NEGATIVE; TROPONIN-I 0.01 ng/mL (0.0-0.30)
[2016-10-15] MEDS ORDERED: OXYCODONE HCL5 MG PO (18:57)
[2016-10-15] MEDS ORDERED: ONDANSETRON ODT4 MG PO (18:58)
[2016-10-15] MEDS ORDERED: ATORVASTATIN CA80 MG PO (18:58)
[2016-10-15] MEDS ORDERED: PANTOPRAZOLE SO40 MG PO (18:59)
[2016-10-15] MEDS ORDERED: DOCUSATE SODIU100 MG PO (18:59)
[2016-10-15] MEDS ORDERED: TAMSULOSIN HCL0.4 MG PO (19:00)
[2016-10-15] MEDS ORDERED: SENNA8.6 MG PO (19:00)
[2016-10-15] MEDS ORDERED: KEPPRA500 MG PO (19:01)
[2016-10-15] MEDS ORDERED: NIFEDIPINE ER60 MG PO (19:02)
[2016-10-15] MEDS ORDERED: MIRALAX17 GM PO (19:02)
[2016-10-15] MEDS ORDERED: HYDRALAZINE HC100 MG PO (19:03)
[2016-10-15] MEDS ORDERED: LABETALOL HCL200 MG PO (19:05)
[2016-10-15] MEDS ORDERED: FULL SPECTRUM0.8 MG PO (19:05)
[2016-10-15] MEDS ORDERED: ZYVOX600 MG PO (19:07)
[2016-10-15] MEDS ORDERED: SYMBICORT60 INHALAT IH (19:08)
[2016-10-15] MEDS ORDERED: ALBUTEROL2.5 MG/3 M IH (19:09)
[2016-10-15 20:36] VITALS: BP 175/78
[2016-10-15 22:28] LABS: TROP-I INTERPRETATION NEGATIVE; TROPONIN-I < 0.01 ng/mL (0.0-0.30)
[2016-10-15 23:10] VITALS: BP 145/68
[2016-10-16 00:49] LABS: METH RESISTANT S AUREUS PCR NEGATIVE (NEGATIVE)
[2016-10-16 00:53] LABS: PROBE CHECK PASS; SPECIMEN PROCESSING CONTROL PASS
[2016-10-16 03:02] VITALS: BP 110/56
[2016-10-16 06:08] LABS: HEMATOCRIT 23.8 % (38.0-50.0); MCH 27.3 PG (29.0-34.0); MCHC 30.7 G/DL (30.0-36.0); MCV 89.1 FL (86-99); MEAN PLAT.VOLUME 9.9 uM^3 (9.0-12.4); PLATELET COUNT 276 K/uL (156-360); RBC DIS.WIDTH-CV 14.6 % (11.8-14.6); RBC DIS.WIDTH-SD 46.8 % (39-53); WHITE BLOOD COUNT 11.8 K/uL (4.1-10.2)
[2016-10-16 06:13] LABS: RED BLOOD COUNT 2.67 M/uL (4.00-5.50)
[2016-10-16 06:17] LABS: ANION GAP 10 MEQ/L (2-14); CHLORIDE 97 MEQ/L (99-109); GFR ESTIMATE (CALCULATED) 14 mL/min/; GLUCOSE 92 mg/dL (70-99); POTASSIUM 4.6 MEQ/L (3.7-5.4); SAMPLE HEMOLYSIS CHECK 0; SAMPLE ICTERIC CHECK 0; SAMPLE LIPEMIA CHECK 0; SODIUM 137 MEQ/L (136-147); UREA NITROGEN (BUN) 27 mg/dL (9-23)
[2016-10-16 06:23] LABS: TROP-I INTERPRETATION NEGATIVE; TROPONIN-I 0.01 ng/mL (0.0-0.30)
[2016-10-16 11:23] VITALS: BP 194/85
[2016-10-16] MEDS ORDERED: APRESOLINE50 MG PO (11:54)
[2016-10-16] MEDS ORDERED: CLONIDINE HCL0.2 MG PO (11:54)
[2016-10-16] MEDS ORDERED: VALSARTAN160 MG PO (11:55)
[2016-10-16 12:22] LABS: AHBS INDEX 573.92
[2016-10-16 12:30] LABS: HEPATITIS B SURFACE ANTIBODY REACTIVE
[2016-10-16 16:31] VITALS: BP 165/78
== END 2016-10-16 17:23 ==
LOC: EME 13:46 → EDOF 19:12 → 5WEST 19:12 → EDOF 19:12 → 5WEST 20:00
PROVIDERS: Emergency Medicine; Hospitalist; Internal Medicine
DX: R07.9 Chest pain, unspecified (principal); R94.31 Abnormal electrocardiogram [ECG] [EKG]; D63.1 Anemia in chronic kidney disease; I12.0 Hypertensive chronic kidney disease with stage 5 chronic kidney disease or end stage renal disease; N18.5 Chronic kidney disease, stage 5; Z99.2 Dependence on renal dialysis; J44.9 Chronic obstructive pulmonary disease, unspecified; E78.5 Hyperlipidemia, unspecified
CPT/HCPCS: 71010; 71250; 80048; 83735; 84484; 85025; 85027; 85610; 85730; 86706; 86900; 86901; 86920; 87340; 87641; 93005; 94640; 94640 76; 99202; 99281; 99285; G0257; G0378; J0881; J1644; P9016

== ENCOUNTER 2016-11-08 15:16 | Emergency (ER) | payer OTHER ==
[~2016-11-08] VITALS: Ht 172.7 cm; Wt 48.4 kg
[~2016-11-08 15:16] MED LIST changes: +ALBUTEROL2.5 MG/3 M IH; +ATORVASTATIN CA80 MG PO; +CLONIDINE HCL0.2 MG PO; +DOCUSATE SODIU100 MG PO; +FULL SPECTRUM0.8 MG PO; +HYDRALAZINE HC100 MG PO; +KEPPRA500 MG PO; +LABETALOL HCL200 MG PO; +MIRALAX17 GM PO; +NIFEDIPINE ER60 MG PO; +ONDANSETRON ODT4 MG PO; +OXYCODONE HCL5 MG PO; +SENNA8.6 MG PO; +SYMBICORT60 INHALAT IH; +TAMSULOSIN HCL0.4 MG PO; +VALSARTAN160 MG PO; +ZYVOX600 MG PO
[2016-11-08 15:49] LABS: EOSINOPHIL (%) 1.2 % (0-5); EOSINOPHIL COUNT 0.1 K/uL (0-0.3); HEMATOCRIT 31.4 % (38.0-50.0); IMMATURE GRANULOCYTE (%) 0.4 % (0.0-0.7); INSTRUMENT ABS NEUTROPHIL CT 7.9 K/uL; LYMPHOCYTE COUNT 0.9 K/uL (1.0-2.8); MCH 25.1 PG (29.0-34.0); MCHC 29.9 G/DL (30.0-36.0); MONOCYTE (%) 5.9 % (3-12); MONOCYTE COUNT 0.6 K/uL (0-0.8); NEUTROPHIL (%) 82.6 % (45-76); NEUTROPHIL COUNT 7.9 K/uL (1.8-6.4); RBC DIS.WIDTH-CV 17.8 % (11.8-14.6); RBC DIS.WIDTH-SD 53.6 % (39-53); WHITE BLOOD COUNT 9.5 K/uL (4.1-10.2)
[2016-11-08 15:50] LABS: AMYLASE 122 IU/L (1-118); CHLORIDE 101 mEq/L (99-109); POTASSIUM 4.3 mEq/L (3.7-5.4); SODIUM 138 mEq/L (136-147)
[2016-11-08 15:52] LABS: GLUCOSE 89 mg/dL (70-99)
[2016-11-08 15:53] LABS: ANION GAP 22 MEQ/L (2-14)
[2016-11-08 15:55] LABS: MCV 83.7 FL (86-99); RED BLOOD COUNT 3.75 M/uL (4.00-5.50); SERUM ETHYL ALCOHOL < 10 mg/dL
[2016-11-08 15:56] LABS: GFR ESTIMATE (CALCULATED) 37 mL/min/; UREA NITROGEN (BUN) 8 mg/dL (9-23)
[2016-11-08 15:59] LABS: LIPASE 40 U/L (1.0-51.0)
[2016-11-08 16:04] LABS: TROP-I INTERPRETATION NEGATIVE; TROPONIN-I 0.02 ng/mL (0.0-0.30)
[2016-11-08 16:18] LABS: INTER. NORMALIZED RATIO 1.2; PROTHROMBIN TIME 13.8 SEC (10.2-12.9)
[2016-11-08 16:21] LABS: PTT 31.7 SEC (25-37)
[2016-11-08 16:43] LABS: ANISOCYTOSIS 1+; HYPOCHROMASIA 1+; MACROCYTES 1+; MEAN PLAT.VOLUME 11.2 uM^3 (9.0-12.4); MICROCYTOSIS 1+; PLAT.SUFFICIENCY ADEQUATE; POIKILOCYTOSIS 1+; POLYCHROMASIA 1+; SPHEROCYTES 2+
[2016-11-08 17:26] LABS: PLATELET COUNT 151 K/uL (156-360)
[2016-11-08 20:42] VITALS: BP 155/78
== END 2016-11-08 20:51 ==
LOC: EME 15:16
PROVIDERS: Emergency Medicine
DX: G40.909 Epilepsy, unspecified, not intractable, without status epilepticus (principal); T42.6X6A Underdosing of other antiepileptic and sedative-hypnotic drugs, initial encounter; Z91.128 Patient's intentional underdosing of medication regimen for other reason; I12.0 Hypertensive chronic kidney disease with stage 5 chronic kidney disease or end stage renal disease; N18.6 End stage renal disease; J44.9 Chronic obstructive pulmonary disease, unspecified; F17.200 Nicotine dependence, unspecified, uncomplicated; K21.9 Gastro-esophageal reflux disease without esophagitis
CPT/HCPCS: 70450; 80048; 81003; 82150; 83690; 84484; 85025; 85610; 85730; 86900; 86901; 99281; 99285; G0480; J1953; J2250; J7030; J7050

== ENCOUNTER 2016-11-21 02:58 | Inpatient (IN) | payer OTHER ==
[~2016-11-21] VITALS: Ht 172.7 cm; Wt 47.0 kg
[2016-11-21 04:06] LABS: CHLORIDE 103 mEq/L (99-109); POTASSIUM 3.9 mEq/L (3.7-5.4); SODIUM 137 mEq/L (136-147)
[2016-11-21 04:07] LABS: GLUCOSE 88 mg/dL (70-99)
[2016-11-21 04:08] LABS: HEMATOCRIT 29.1 % (38.0-50.0); MCH 25.9 PG (29.0-34.0); MCV 81.1 FL (86-99); RBC DIS.WIDTH-CV 19.9 % (11.8-14.6); RBC DIS.WIDTH-SD 58.4 % (39-53); RED BLOOD COUNT 3.59 M/uL (4.00-5.50); WHITE BLOOD COUNT 33.4 K/uL (4.1-10.2)
[2016-11-21 04:09] LABS: ANION GAP 10 MEQ/L (2-14)
[2016-11-21 04:11] LABS: GFR ESTIMATE (CALCULATED) 32 mL/min/
[2016-11-21 04:12] LABS: UREA NITROGEN (BUN) 9 mg/dL (9-23)
[2016-11-21 04:52] LABS: ADD MIUA? YES; BILIRUBIN NEGATIVE; BLOOD SMALL; COLOR AMBER ((YELLOW)); GLUCOSE (STRIP) NEGATIVE; KETONES NEGATIVE; LEUKOCYTES MODERATE; NITRITE NEGATIVE; PROTEIN (STRIP) 100; SPECIFIC GRAVITY 1.012 (1.000-1.030); UROBILINOGEN 0.2 MG/DL (0.2-1.0)
[2016-11-21 04:59] LABS: BASOPHIL COUNT 0.1 K/uL (0-0.1); EOSINOPHIL (%) 0 % (0-5); IMMATURE GRANULOCYTE (%) 1.6 % (0.0-0.7); IMMATURE GRANULOCYTE COUNT 0.5 K/uL; INSTRUMENT ABS NEUTROPHIL CT 31.1 K/uL; LYMPHOCYTE COUNT 0.5 K/uL (1.0-2.8); MONOCYTE (%) 3.8 % (3-12); MONOCYTE COUNT 1.3 K/uL (0-0.8); NEUTROPHIL COUNT 31.1 K/uL (1.8-6.4); PLAT.SUFFICIENCY DECREASED
[2016-11-21 05:00] LABS: PLATELET CLUMPS PRESENT
[2016-11-21 06:02] LABS: UCUL ADDED? YES; WHITE BLOOD CELLS TNTC /HPF (0-5)
[2016-11-21] MEDS ORDERED: KEPPRA250 MG PO (09:50)
[2016-11-21] MEDS ORDERED: ESCITALOPRAM OX10 MG PO (09:51)
[2016-11-21] MEDS ORDERED: TRAZODONE HCL50 MG PO (10:00)
[2016-11-21] MEDS ORDERED: DIOVAN320 MG PO (10:03)
[2016-11-21] MEDS ORDERED: CALMOSEPTINE O120 GM TP (10:11)
[2016-11-21] MEDS ORDERED: AQUAPHOR OINTM105 GM TP (10:11)
[2016-11-21 15:51] VITALS: BP 176/83
[2016-11-21 21:08] VITALS: BP 1466/81
[2016-11-21 23:55] VITALS: BP 162/76
[2016-11-22 07:22] LABS: ANION GAP 8 MEQ/L (2-14); CHLORIDE 104 MEQ/L (99-109); GFR ESTIMATE (CALCULATED) 24 mL/min/; GLUCOSE 80 mg/dL (70-99); POTASSIUM 4.5 MEQ/L (3.7-5.4); SAMPLE HEMOLYSIS CHECK 0; SAMPLE ICTERIC CHECK 0; SAMPLE LIPEMIA CHECK 0; SODIUM 134 MEQ/L (136-147)
[2016-11-22 07:33] LABS: UREA NITROGEN (BUN) 22 mg/dL (9-23)
[2016-11-22 08:13] VITALS: BP 151/78
[2016-11-22 08:52] LABS: HEMATOCRIT 24.9 % (38.0-50.0); MCH 26.5 PG (29.0-34.0); MCHC 32.1 G/DL (30.0-36.0); MCV 82.5 FL (86-99); RBC DIS.WIDTH-CV 20.7 % (11.8-14.6); RBC DIS.WIDTH-SD 61.2 % (39-53); RED BLOOD COUNT 3.02 M/uL (4.00-5.50); WHITE BLOOD COUNT 14.1 K/uL (4.1-10.2)
[2016-11-22 08:53] LABS: PLAT.SUFFICIENCY DECREASED; PLATELET COUNT 119 K/uL (156-360)
[2016-11-22 09:21] LABS: BASOPHIL COUNT 0.1 K/uL (0-0.1); EOSINOPHIL (%) 0.7 % (0-5); EOSINOPHIL COUNT 0.1 K/uL (0-0.3); IMMATURE GRANULOCYTE (%) 0.5 % (0.0-0.7); IMMATURE GRANULOCYTE COUNT 0.1 K/uL; INSTRUMENT ABS NEUTROPHIL CT 12.2 K/uL; LYMPHOCYTE COUNT 0.8 K/uL (1.0-2.8); MONOCYTE (%) 5.4 % (3-12); MONOCYTE COUNT 0.8 K/uL (0-0.8); NEUTROPHIL (%) 87.2 % (45-76); NEUTROPHIL COUNT 12.2 K/uL (1.8-6.4)
[2016-11-22 19:35] VITALS: BP 150/71
[2016-11-22 22:45] VITALS: BP 161/77
[2016-11-22 23:50] VITALS: BP 160/77
[2016-11-23 03:03] VITALS: BP 145/76
[2016-11-23 06:45] LABS: HEMATOCRIT 25.6 % (38.0-50.0); MCH 25.9 PG (29.0-34.0); RBC DIS.WIDTH-CV 20.4 % (11.8-14.6); RBC DIS.WIDTH-SD 59.7 % (39-53); RED BLOOD COUNT 3.16 M/uL (4.00-5.50); WHITE BLOOD COUNT 11.1 K/uL (4.1-10.2)
[2016-11-23 07:32] LABS: IRON 15 MCG/DL (35-150)
[2016-11-23 07:37] LABS: PLAT.SUFFICIENCY DECREASED; PLATELET COUNT 110 K/uL (156-360)
[2016-11-23 07:40] VITALS: BP 140/76
[2016-11-23 19:02] VITALS: BP 137/69
[2016-11-23 22:00] VITALS: BP 135/72
[2016-11-23 23:00] VITALS: BP 119/62
[2016-11-24 06:55] VITALS: BP 160/70
[2016-11-24 07:21] LABS: EOSINOPHIL (%) 2.4 % (0-5); EOSINOPHIL COUNT 0.3 K/uL (0-0.3); HEMATOCRIT 25.8 % (38.0-50.0); HEMATOLOGY COMMENT 1 SMEAR COMPATIBLE; IMMATURE GRANULOCYTE (%) 0.4 % (0.0-0.7); INSTRUMENT ABS NEUTROPHIL CT 7.8 K/uL; LYMPHOCYTE COUNT 1.3 K/uL (1.0-2.8); MCH 25.9 PG (29.0-34.0); MCHC 31.8 G/DL (30.0-36.0); MCV 81.4 FL (86-99); MONOCYTE (%) 8.7 % (3-12); MONOCYTE COUNT 0.9 K/uL (0-0.8); NEUTROPHIL (%) 75.4 % (45-76); NEUTROPHIL COUNT 7.8 K/uL (1.8-6.4); PLAT.SUFFICIENCY DECREASED; PLATELET COUNT 115 K/uL (156-360); RBC DIS.WIDTH-CV 20.5 % (11.8-14.6); RBC DIS.WIDTH-SD 60.7 % (39-53); RED BLOOD COUNT 3.17 M/uL (4.00-5.50); WHITE BLOOD COUNT 10.3 K/uL (4.1-10.2)
[2016-11-24 07:35] LABS: ANION GAP 8 MEQ/L (2-14); CHLORIDE 101 MEQ/L (99-109); GFR ESTIMATE (CALCULATED) 25 mL/min/; GLUCOSE 73 mg/dL (70-99); POTASSIUM 4.1 MEQ/L (3.7-5.4); SAMPLE HEMOLYSIS CHECK 0; SAMPLE ICTERIC CHECK 0; SAMPLE LIPEMIA CHECK 0; SODIUM 136 MEQ/L (136-147); UREA NITROGEN (BUN) 20 mg/dL (9-23)
[2016-11-24 16:11] VITALS: BP 168/97
[2016-11-24 23:15] VITALS: BP 172/87
[2016-11-25 07:33] VITALS: BP 145/73
[2016-11-25 08:32] LABS: ANION GAP 8 MEQ/L (2-14); CHLORIDE 101 MEQ/L (99-109); GFR ESTIMATE (CALCULATED) 22 mL/min/; POTASSIUM 3.9 MEQ/L (3.7-5.4); SAMPLE HEMOLYSIS CHECK 0; SAMPLE ICTERIC CHECK 0; SAMPLE LIPEMIA CHECK 0; SODIUM 136 MEQ/L (136-147)
[2016-11-25 08:35] LABS: BASOPHIL COUNT 0.1 K/uL (0-0.1); EOSINOPHIL (%) 1.1 % (0-5); EOSINOPHIL COUNT 0.1 K/uL (0-0.3); HEMATOCRIT 25.9 % (38.0-50.0); IMMATURE GRANULOCYTE (%) 0.9 % (0.0-0.7); IMMATURE GRANULOCYTE COUNT 0.1 K/uL; INSTRUMENT ABS NEUTROPHIL CT 9.4 K/uL; LYMPHOCYTE COUNT 1.1 K/uL (1.0-2.8); MCH 24.8 PG (29.0-34.0); MCHC 30.5 G/DL (30.0-36.0); MCV 81.4 FL (86-99); MONOCYTE (%) 8.1 % (3-12); NEUTROPHIL COUNT 9.4 K/uL (1.8-6.4); RBC DIS.WIDTH-CV 20.3 % (11.8-14.6); RBC DIS.WIDTH-SD 60.1 % (39-53); RED BLOOD COUNT 3.18 M/uL (4.00-5.50); WHITE BLOOD COUNT 11.8 K/uL (4.1-10.2)
[2016-11-25 08:40] LABS: PLATELET COUNT 160 K/uL (156-360)
[2016-11-25 08:45] LABS: GLUCOSE 109 mg/dL (70-99); UREA NITROGEN (BUN) 32 mg/dL (9-23)
== END 2016-11-25 15:46 | DRG 871 ==
LOC: EME → EDBD 02:58 → EDOF 07:21 → 5EAST 07:21 → ENRESERV 07:22 → 5EAST 08:22
PROVIDERS: Emergency Medicine; Internal Medicine; Internal Medicine Nephrology; Student in an Organized Health Care Education/Training Program
PROC: 5A1D60Z (ICD-10-PCS; principal; 2016-11-22)
DX: A41.9 Sepsis, unspecified organism (principal); J44.9 Chronic obstructive pulmonary disease, unspecified; N18.6 End stage renal disease; B95.2 Enterococcus as the cause of diseases classified elsewhere; E78.5 Hyperlipidemia, unspecified; F17.200 Nicotine dependence, unspecified, uncomplicated; G40.909 Epilepsy, unspecified, not intractable, without status epilepticus; I12.0 Hypertensive chronic kidney disease with stage 5 chronic kidney disease or end stage renal disease; G47.30 Sleep apnea, unspecified; K21.9 Gastro-esophageal reflux disease without esophagitis; Z91.19 Patient's noncompliance with other medical treatment and regimen; Z99.2 Dependence on renal dialysis; N39.0 Urinary tract infection, site not specified; B18.2 Chronic viral hepatitis C; E87.2 Acidosis; D63.1 Anemia in chronic kidney disease; N05.2 Unspecified nephritic syndrome with diffuse membranous glomerulonephritis; D69.6 Thrombocytopenia, unspecified; M31.1 Thrombotic microangiopathy; Z16.11 Resistance to penicillins
CPT/HCPCS: 74176; 80048; 80069; 81003; 83540; 83605; 84460; 84466; 85025; 85027; 87040; 87077; 87086; 87186; 87340; 94640; 94640 76; 99202; 99281; 99284; J0290; J0692; J0696; J0881; J1200; J1644; J1956; J3010; J3370; J7040; J7050

== ENCOUNTER 2016-12-26 08:50 | Emergency (ER) | payer OTHER ==
[~2016-12-26] VITALS: Ht 172.7 cm; Wt 43.1 kg
[~2016-12-26 08:50] MED LIST changes: +AQUAPHOR OINTM105 GM TP; +CALMOSEPTINE O120 GM TP; +DIOVAN320 MG PO; +ESCITALOPRAM OX10 MG PO; +TRAZODONE HCL50 MG PO
[2016-12-26 09:38] LABS: MCHC 30.5 G/DL (30.0-36.0); MCV 78.7 FL (86-99); RBC DIS.WIDTH-CV 22.1 % (11.8-14.6); RED BLOOD COUNT 2.54 M/uL (4.00-5.50); WHITE BLOOD COUNT 10.2 K/uL (4.1-10.2)
[2016-12-26 09:43] LABS: CHLORIDE 93 mEq/L (99-109); POTASSIUM 3.8 mEq/L (3.7-5.4); SODIUM 131 mEq/L (136-147)
[2016-12-26 09:44] LABS: GLUCOSE 108 mg/dL (70-99)
[2016-12-26 09:45] LABS: ADD MIUA? YES; BILIRUBIN NEGATIVE; BLOOD SMALL; COLOR AMBER ((YELLOW)); GLUCOSE (STRIP) 50; KETONES NEGATIVE; LEUKOCYTES LARGE; NITRITE NEGATIVE; PROTEIN (STRIP) 100; SPECIFIC GRAVITY 1.016 (1.000-1.030); UROBILINOGEN 0.2 MG/DL (0.2-1.0)
[2016-12-26 09:46] LABS: ANION GAP 11 MEQ/L (2-14)
[2016-12-26 09:48] LABS: GFR ESTIMATE (CALCULATED) 18 mL/min/
[2016-12-26 09:49] LABS: UREA NITROGEN (BUN) 45 mg/dL (9-23)
[2016-12-26 10:07] LABS: BACTERIA RARE /HPF; EPITHELIAL CELLS 2+ /HPF; HYALINE CASTS 30-40 /LPF; MUCUS TRACE /LPF; RED BLOOD CELLS TNTC /HPF (0-5); WHITE BLOOD CELLS TNTC /HPF (0-5)
[2016-12-26 10:31] LABS: MEAN PLAT.VOLUME 10.4 uM^3 (9.0-12.4); PLATELET COUNT 128 K/uL (156-360)
[2016-12-26] MEDS ORDERED: AUGMENTIN500 MG PO (12:52)
[2016-12-26 13:43] VITALS: BP 147/80
[2016-12-26 14:11] LABS: HBSG INDEX 0.19
== END 2016-12-26 13:47 | disposition home or self-care (01) ==
LOC: EME 08:50
PROVIDERS: Internal Medicine; Physician Assistant
DX: N39.0 Urinary tract infection, site not specified (principal); I12.0 Hypertensive chronic kidney disease with stage 5 chronic kidney disease or end stage renal disease; N18.6 End stage renal disease; D63.1 Anemia in chronic kidney disease; Z99.2 Dependence on renal dialysis; Z87.440 Personal history of urinary (tract) infections; G40.909 Epilepsy, unspecified, not intractable, without status epilepticus; J44.9 Chronic obstructive pulmonary disease, unspecified; Z86.718 Personal history of other venous thrombosis and embolism; Z87.891 Personal history of nicotine dependence
CPT/HCPCS: 80048; 81003; 85027; 86850; 86900; 86901; 86920; 87077; 87086; 87186; 87340; 99281; 99285; J1644; P9016

== ENCOUNTER 2016-12-31 09:46 | Inpatient (IN) | payer OTHER ==
[~2016-12-31] VITALS: Ht 172.7 cm; Wt 42.7 kg
[2016-12-31 12:47] LABS: HEMATOCRIT 26.8 % (38.0-50.0); MCH 25.6 PG (29.0-34.0); MCHC 31.3 G/DL (30.0-36.0); MCV 81.7 FL (86-99); PLATELET COUNT 155 K/uL (156-360); RBC DIS.WIDTH-CV 21.2 % (11.8-14.6); RBC DIS.WIDTH-SD 62.8 % (39-53); RED BLOOD COUNT 3.28 M/uL (4.00-5.50); WHITE BLOOD COUNT 8.3 K/uL (4.1-10.2)
[2016-12-31 12:56] LABS: CHLORIDE 99 mEq/L (99-109)
[2016-12-31 12:58] LABS: GLUCOSE 81 mg/dL (70-99)
[2016-12-31 13:00] LABS: ANION GAP 15 MEQ/L (2-14); TOTAL BILIRUBIN 0.4 mg/dL (0.0-1.0)
[2016-12-31 13:02] LABS: ALKALINE PHOSPHATASE 258 IU/L (3-129); GFR ESTIMATE (CALCULATED) 28 mL/min/; POTASSIUM 4.8 mEq/L (3.7-5.4); SODIUM 138 mEq/L (136-147)
[2016-12-31 13:03] LABS: UREA NITROGEN (BUN) 37 mg/dL (9-23)
[2016-12-31 13:05] LABS: LIPASE 160 U/L (1.0-51.0)
[2016-12-31 14:33] LABS: ADD MIUA? YES; BILIRUBIN NEGATIVE; BLOOD SMALL; COLOR AMBER ((YELLOW)); GLUCOSE (STRIP) 50; KETONES NEGATIVE; LEUKOCYTES TRACE; NITRITE NEGATIVE; PROTEIN (STRIP) 100; SPECIFIC GRAVITY 1.014 (1.000-1.030); UROBILINOGEN 0.2 MG/DL (0.2-1.0)
[2016-12-31 14:46] LABS: BACTERIA NONE SEEN /HPF; EPITHELIAL CELLS RARE /HPF; MUCUS TRACE /LPF; RED BLOOD CELLS 0-5 /HPF (0-5); UCUL ADDED? YES
[2016-12-31 18:29] VITALS: BP 171/79
[2016-12-31 18:29] LABS: Estimated Average Glucose 97 mg/dL (70-123)
[2016-12-31 19:54] VITALS: BP 175/76
[2016-12-31 21:35] LABS: POINT-OF-CARE METER ID UU14188625
[2016-12-31 23:37] VITALS: BP 160/75
[2017-01-01 04:24] LABS: POINT-OF-CARE METER ID UU14174225
[2017-01-01 04:51] VITALS: BP 180/84
[2017-01-01 07:26] LABS: POINT-OF-CARE METER ID UU14188625
[2017-01-01 07:40] VITALS: BP 186/77
[2017-01-01 13:12] VITALS: BP 180/90
[2017-01-01 15:31] VITALS: BP 175/90
[2017-01-01 15:44] LABS: HEMATOCRIT 26.1 % (38.0-50.0); MCH 27.1 PG (29.0-34.0); MCHC 32.6 G/DL (30.0-36.0); MCV 83.1 FL (86-99); MEAN PLAT.VOLUME 10.3 uM^3 (9.0-12.4); RBC DIS.WIDTH-CV 21.1 % (11.8-14.6); RBC DIS.WIDTH-SD 63.7 % (39-53); RED BLOOD COUNT 3.14 M/uL (4.00-5.50); WHITE BLOOD COUNT 8.1 K/uL (4.1-10.2)
[2017-01-01 15:50] LABS: PLATELET COUNT 214 K/uL (156-360)
[2017-01-01 15:52] LABS: ALKALINE PHOSPHATASE 181 IU/L (3-129); ANION GAP 10 MEQ/L (2-14); CHLORIDE 103 MEQ/L (99-109); GFR ESTIMATE (CALCULATED) 22 mL/min/; GLUCOSE 98 mg/dL (70-99); POTASSIUM 4.5 MEQ/L (3.7-5.4); SAMPLE HEMOLYSIS CHECK 0; SAMPLE ICTERIC CHECK 0; SAMPLE LIPEMIA CHECK 0; SODIUM 138 MEQ/L (136-147); TOTAL BILIRUBIN 0.6 MG/DL (0.0-1.0); UREA NITROGEN (BUN) 48 mg/dL (9-23)
[2017-01-01 16:06] LABS: INTER. NORMALIZED RATIO 1.2; PROTHROMBIN TIME 13.6 SEC (10.2-12.9)
[2017-01-01 16:09] LABS: PTT 29.7 SEC (25-37)
[2017-01-01 19:44] VITALS: BP 176/94
[2017-01-01 21:12] LABS: POINT-OF-CARE METER ID UU14188625
[2017-01-02] VITALS: BP 147/78
[2017-01-02 03:47] VITALS: BP 94/51
[2017-01-02 08:30] VITALS: BP 98/56
[2017-01-02 09:40] LABS: HEMATOCRIT 22.5 % (38.0-50.0); MCH 26.8 PG (29.0-34.0); MCHC 32.4 G/DL (30.0-36.0); MCV 82.7 FL (86-99); MEAN PLAT.VOLUME 11.3 uM^3 (9.0-12.4); PLATELET COUNT 233 K/uL (156-360); RBC DIS.WIDTH-CV 21.6 % (11.8-14.6); RBC DIS.WIDTH-SD 63.7 % (39-53); RED BLOOD COUNT 2.72 M/uL (4.00-5.50); WHITE BLOOD COUNT 5.1 K/uL (4.1-10.2)
[2017-01-02 09:56] LABS: ANION GAP 9 MEQ/L (2-14); CHLORIDE 99 MEQ/L (99-109); POTASSIUM 4.3 MEQ/L (3.7-5.4); SAMPLE HEMOLYSIS CHECK 0; SAMPLE ICTERIC CHECK 0; SAMPLE LIPEMIA CHECK 0; SODIUM 132 MEQ/L (136-147)
[2017-01-02 09:59] LABS: TOTAL BILIRUBIN 0.4 MG/DL (0.0-1.0)
[2017-01-02 10:01] LABS: ALKALINE PHOSPHATASE 159 IU/L (3-129); GFR ESTIMATE (CALCULATED) 20 mL/min/; GLUCOSE 127 mg/dL (70-99); UREA NITROGEN (BUN) 52 mg/dL (9-23)
[2017-01-02 16:37] LABS: LACTATE DEHYDROGENASE 137 IU/L (20-246)
[2017-01-02 16:43] VITALS: BP 102/60
[2017-01-02 16:55] LABS: POINT-OF-CARE METER ID UU13113717
[2017-01-02 20:01] VITALS: BP 160/68
[2017-01-02 21:48] LABS: POINT-OF-CARE METER ID UU13113717
[2017-01-02 23:29] VITALS: BP 141/73
[2017-01-03 03:59] VITALS: BP 112/60
[2017-01-03 07:59] VITALS: BP 122/62
[2017-01-03 08:24] LABS: POINT-OF-CARE METER ID UU14188625
[2017-01-03 08:25] LABS: HEMATOCRIT 25.5 % (38.0-50.0); MCH 26.7 PG (29.0-34.0); MCHC 32.9 G/DL (30.0-36.0); RBC DIS.WIDTH-CV 21.3 % (11.8-14.6); RBC DIS.WIDTH-SD 61.9 % (39-53); RED BLOOD COUNT 3.15 M/uL (4.00-5.50)
[2017-01-03 08:58] LABS: ANION GAP 9 MEQ/L (2-14); CHLORIDE 101 MEQ/L (99-109); POTASSIUM 4.1 MEQ/L (3.7-5.4); SAMPLE HEMOLYSIS CHECK 0; SAMPLE ICTERIC CHECK 0; SAMPLE LIPEMIA CHECK 0; SODIUM 135 MEQ/L (136-147)
[2017-01-03 09:14] LABS: GFR ESTIMATE (CALCULATED) 39 mL/min/; GLUCOSE 90 mg/dL (70-99); UREA NITROGEN (BUN) 21 mg/dL (9-23)
[2017-01-03 09:49] LABS: MEAN PLAT.VOLUME 10.4 uM^3 (9.0-12.4); PLATELET COUNT 158 K/uL (156-360)
[2017-01-03] MEDS ORDERED: MIRTAZAPINE15 MG PO (09:51)
[2017-01-03] MEDS ORDERED: DRONABINOL2.5 MG PO (09:51)
[2017-01-03] MEDS ORDERED: NEPHRO-VITE,1 TABLET PO (09:52)
[2017-01-03] MEDS ORDERED: HYDROXYZINE PAM25 MG PO (09:52)
[2017-01-03] MEDS ORDERED: AMOX TR-K CLV1 EAC3 PO (09:54)
[2017-01-03 11:23] VITALS: BP 120/60
[2017-01-03 12:45] LABS: POINT-OF-CARE METER ID UU14188625
[2017-01-03 16:05] VITALS: BP 124/42
[2017-01-03 17:40] LABS: POINT-OF-CARE METER ID UU14188625
[2017-01-03 19:41] VITALS: BP 138/60
[2017-01-03 23:54] VITALS: BP 127/69
[2017-01-04 03:59] VITALS: BP 107/66
[2017-01-04 07:55] LABS: HEMATOCRIT 22.9 % (38.0-50.0); MCH 26.5 PG (29.0-34.0); MCHC 31.9 G/DL (30.0-36.0); MCV 83.3 FL (86-99); MEAN PLAT.VOLUME 10.1 uM^3 (9.0-12.4); PLATELET COUNT 192 K/uL (156-360); RBC DIS.WIDTH-CV 21.5 % (11.8-14.6); RBC DIS.WIDTH-SD 63.7 % (39-53); RED BLOOD COUNT 2.75 M/uL (4.00-5.50); WHITE BLOOD COUNT 5.8 K/uL (4.1-10.2)
[2017-01-04 08:12] LABS: EOSINOPHIL (%) 2.6 % (0-5); EOSINOPHIL COUNT 0.2 K/uL (0-0.3); IMMATURE GRANULOCYTE (%) 0.5 % (0.0-0.7); INSTRUMENT ABS NEUTROPHIL CT 4.5 K/uL; LYMPHOCYTE COUNT 0.8 K/uL (1.0-2.8); MONOCYTE COUNT 0.4 K/uL (0-0.8); NEUTROPHIL (%) 76.9 % (45-76); NEUTROPHIL COUNT 4.5 K/uL (1.8-6.4)
[2017-01-04 08:17] LABS: ANION GAP 7 MEQ/L (2-14); CHLORIDE 98 MEQ/L (99-109); SAMPLE HEMOLYSIS CHECK 0; SAMPLE ICTERIC CHECK 0; SAMPLE LIPEMIA CHECK 0; SODIUM 131 MEQ/L (136-147)
[2017-01-04 08:29] LABS: GFR ESTIMATE (CALCULATED) 30 mL/min/; UREA NITROGEN (BUN) 26 mg/dL (9-23)
[2017-01-04 08:33] LABS: GLUCOSE 140 mg/dL (70-99)
[2017-01-04 11:20] LABS: POINT-OF-CARE METER ID UU14174225
[2017-01-04 11:22] VITALS: BP 148/72
[2017-01-04 15:21] VITALS: BP 155/77
[2017-01-04 16:33] LABS: POINT-OF-CARE METER ID UU14188625
[2017-01-04 21:25] LABS: POINT-OF-CARE METER ID UU14174225
[2017-01-04 23:38] VITALS: BP 152/74
[2017-01-05 06:55] LABS: HEMATOCRIT 25.5 % (38.0-50.0); MCH 25.9 PG (29.0-34.0); MCHC 30.6 G/DL (30.0-36.0); MCV 84.7 FL (86-99); MEAN PLAT.VOLUME 9.7 uM^3 (9.0-12.4); PLATELET COUNT 154 K/uL (156-360); RBC DIS.WIDTH-CV 19.6 % (11.8-14.6); RBC DIS.WIDTH-SD 61.1 % (39-53); RED BLOOD COUNT 3.01 M/uL (4.00-5.50); WHITE BLOOD COUNT 6.1 K/uL (4.1-10.2)
[2017-01-05 07:11] LABS: ANION GAP 6 MEQ/L (2-14); CHLORIDE 100 MEQ/L (99-109); GFR ESTIMATE (CALCULATED) 47 mL/min/; POTASSIUM 3.7 MEQ/L (3.7-5.4); SAMPLE HEMOLYSIS CHECK 0; SAMPLE ICTERIC CHECK 0; SAMPLE LIPEMIA CHECK 0; SODIUM 134 MEQ/L (136-147); UREA NITROGEN (BUN) 15 mg/dL (9-23)
[2017-01-05 07:15] LABS: GLUCOSE 102 mg/dL (70-99)
[2017-01-05 07:29] VITALS: BP 100/51
[2017-01-05 12:14] VITALS: BP 140/62
[2017-01-05 12:33] VITALS: BP 142/64
[2017-01-05 13:46] VITALS: BP 164/80
[2017-01-05 14:49] VITALS: BP 174/84
[2017-01-05 16:07] LABS: POINT-OF-CARE METER ID UU14174225
== END 2017-01-05 18:25 | disposition home health service (06) | DRG 689 ==
LOC: EME 09:46 → ENRESERV 16:49 → EDOF 16:51 → 5SOUTH 16:51 → ENRESERV 17:29 → 5SOUTH 18:04
PROVIDERS: Internal Medicine; Internal Medicine Nephrology
PROC: 5A1D60Z (ICD-10-PCS; principal; 2017-01-02)
PROC: 30233N1 Transfusion of Nonautologous Red Blood Cells into Peripheral Vein, Percutaneous Approach (ICD-10-PCS; 2017-01-04)
DX: N30.90 Cystitis, unspecified without hematuria (principal); R78.81 Bacteremia; K85.90 Acute pancreatitis without necrosis or infection, unspecified; B95.2 Enterococcus as the cause of diseases classified elsewhere; E44.0 Moderate protein-calorie malnutrition; I13.2 Hypertensive heart and chronic kidney disease with heart failure and with stage 5 chronic kidney disease, or end stage renal disease; N18.6 End stage renal disease; N25.81 Secondary hyperparathyroidism of renal origin; I50.32 Chronic diastolic (congestive) heart failure; I71.02 Dissection of abdominal aorta; D58.9 Hereditary hemolytic anemia, unspecified; D69.6 Thrombocytopenia, unspecified; K80.70 Calculus of gallbladder and bile duct without cholecystitis without obstruction; Z16.21 Resistance to vancomycin; R62.7 Adult failure to thrive; D63.1 Anemia in chronic kidney disease; D50.9 Iron deficiency anemia, unspecified; E78.5 Hyperlipidemia, unspecified; G40.909 Epilepsy, unspecified, not intractable, without status epilepticus; J44.9 Chronic obstructive pulmonary disease, unspecified; K21.9 Gastro-esophageal reflux disease without esophagitis; G47.30 Sleep apnea, unspecified; F17.200 Nicotine dependence, unspecified, uncomplicated; Z99.2 Dependence on renal dialysis; Z68.1 Body mass index [BMI] 19.9 or less, adult; Z87.440 Personal history of urinary (tract) infections; Z79.82 Long term (current) use of aspirin; Z91.14 Patient's other noncompliance with medication regimen; Z95.5 Presence of coronary angioplasty implant and graft
CPT/HCPCS: 71020; 74176; 76700; 78227; 80048; 80053; 80069; 80200; 81003; 82272; 82948; 83036; 83605; 83615; 83690; 84100; 85025; 85027; 85610; 85730; 86850; 86900; 86901; 86920; 87040; 87077; 87086; 87186; 87493; 87506; 87801; 93975; 94640; 94640 76; 99281; 99285; A9537; J0692; J1644; J1815; J2020; J2805; J3010; J3260; J7030; J7050; P9016

== ENCOUNTER 2017-01-07 10:01 | Inpatient (IN) | payer OTHER ==
[~2017-01-07] VITALS: Ht 172.7 cm; Wt 54.8 kg
[~2017-01-07 10:01] MED LIST changes: +DRONABINOL2.5 MG PO; +HYDROXYZINE PAM25 MG PO; +MIRTAZAPINE15 MG PO; +NEPHRO-VITE,1 TABLET PO
[2017-01-07 10:34] LABS: ADD MIUA? YES; BILIRUBIN NEGATIVE; BLOOD NEGATIVE; COLOR YELLOW ((YELLOW)); GLUCOSE (STRIP) NEGATIVE; KETONES NEGATIVE; LEUKOCYTES NEGATIVE; NITRITE NEGATIVE; PROTEIN (STRIP) >=500; UROBILINOGEN 0.2 MG/DL (0.2-1.0)
[2017-01-07 10:36] LABS: EOSINOPHIL (%) 1.4 % (0-5); EOSINOPHIL COUNT 0.2 K/uL (0-0.3); HEMATOCRIT 27.6 % (38.0-50.0); IMMATURE GRANULOCYTE (%) 0.5 % (0.0-0.7); IMMATURE GRANULOCYTE COUNT 0.1 K/uL; INSTRUMENT ABS NEUTROPHIL CT 11.8 K/uL; LYMPHOCYTE COUNT 0.6 K/uL (1.0-2.8); MCH 26.6 PG (29.0-34.0); MCHC 32.2 G/DL (30.0-36.0); MCV 82.4 FL (86-99); MEAN PLAT.VOLUME 9.9 uM^3 (9.0-12.4); MONOCYTE (%) 1.8 % (3-12); MONOCYTE COUNT 0.2 K/uL (0-0.8); NEUTROPHIL (%) 91.1 % (45-76); NEUTROPHIL COUNT 11.8 K/uL (1.8-6.4); PLATELET COUNT 161 K/uL (156-360); RBC DIS.WIDTH-CV 18.3 % (11.8-14.6); RBC DIS.WIDTH-SD 55.3 % (39-53); RED BLOOD COUNT 3.35 M/uL (4.00-5.50); WHITE BLOOD COUNT 12.9 K/uL (4.1-10.2)
[2017-01-07 10:42] LABS: BACTERIA NONE SEEN /HPF; EPITHELIAL CELLS RARE /HPF; HYALINE CASTS 0-5 /LPF; MUCUS NONE SEEN /LPF; UCUL ADDED? YES
[2017-01-07 10:46] LABS: CHLORIDE 100 mEq/L (99-109); POTASSIUM 3.7 mEq/L (3.7-5.4); SODIUM 138 mEq/L (136-147)
[2017-01-07 10:48] LABS: GLUCOSE 72 mg/dL (70-99)
[2017-01-07 10:49] LABS: ANION GAP 11 MEQ/L (2-14)
[2017-01-07 10:52] LABS: GFR ESTIMATE (CALCULATED) > 59 mL/min/; UREA NITROGEN (BUN) 12 mg/dL (9-23)
[2017-01-07 11:17] LABS: INFLUENZA A VIRAL ANTIGEN NEGATIVE; INFLUENZA B VIRAL ANTIGEN NEGATIVE
[2017-01-07 14:57] VITALS: BP 168/80
[2017-01-07 18:30] LABS: C DIFF TOXIN NEGATIVE (NEGATIVE)
[2017-01-07 18:32] LABS: PROBE CHECK PASS; SPECIMEN PROCESSING CONTROL PASS
[2017-01-07 20:15] VITALS: BP 198/89
[2017-01-07 23:38] VITALS: BP 149/71
[2017-01-08 04:02] VITALS: BP 156/76
[2017-01-08 07:25] LABS: HEMATOCRIT 26.3 % (38.0-50.0); MCH 27.2 PG (29.0-34.0); MCHC 32.3 G/DL (30.0-36.0); MCV 84.3 FL (86-99); RBC DIS.WIDTH-SD 57.7 % (39-53); RED BLOOD COUNT 3.12 M/uL (4.00-5.50); WHITE BLOOD COUNT 9.9 K/uL (4.1-10.2)
[2017-01-08 07:29] LABS: ANION GAP 11 MEQ/L (2-14); CHLORIDE 103 MEQ/L (99-109); POTASSIUM 4.2 MEQ/L (3.7-5.4); SAMPLE HEMOLYSIS CHECK 0; SAMPLE ICTERIC CHECK 0; SAMPLE LIPEMIA CHECK 0; SODIUM 139 MEQ/L (136-147)
[2017-01-08 07:30] LABS: GFR ESTIMATE (CALCULATED) 44 mL/min/; GLUCOSE 113 mg/dL (70-99); UREA NITROGEN (BUN) 24 mg/dL (9-23)
[2017-01-08 07:41] VITALS: BP 133/64
[2017-01-08 07:46] LABS: HEMATOLOGY COMMENT 1 SMEAR COMPATIBLE; MEAN PLAT.VOLUME 10.9 uM^3 (9.0-12.4); PLAT.SUFFICIENCY ADEQUATE; PLATELET COUNT 164 K/uL (156-360)
[2017-01-08 11:30] VITALS: BP 108/56
[2017-01-08 15:19] VITALS: BP 137/67
[2017-01-08 20:33] VITALS: BP 157/77
[2017-01-09 00:11] VITALS: BP 158/78
[2017-01-09 07:30] LABS: ANION GAP 7 MEQ/L (2-14); CHLORIDE 104 MEQ/L (99-109); GFR ESTIMATE (CALCULATED) 36 mL/min/; SAMPLE HEMOLYSIS CHECK 0; SAMPLE ICTERIC CHECK 0; SAMPLE LIPEMIA CHECK 0; SODIUM 141 MEQ/L (136-147); UREA NITROGEN (BUN) 28 mg/dL (9-23)
[2017-01-09 07:33] LABS: GLUCOSE 79 mg/dL (70-99)
[2017-01-09 07:53] VITALS: BP 187/90
[2017-01-09 21:45] VITALS: BP 129/87
[2017-01-10 06:53] LABS: MCH 26.6 PG (29.0-34.0); MCHC 31.4 G/DL (30.0-36.0); MCV 84.7 FL (86-99); MEAN PLAT.VOLUME 10.5 uM^3 (9.0-12.4); PLATELET COUNT 182 K/uL (156-360); RBC DIS.WIDTH-CV 19.8 % (11.8-14.6); RBC DIS.WIDTH-SD 60.8 % (39-53); WHITE BLOOD COUNT 9.1 K/uL (4.1-10.2)
[2017-01-10 06:58] LABS: RED BLOOD COUNT 2.48 M/uL (4.00-5.50)
[2017-01-10 07:22] LABS: ANION GAP 8 MEQ/L (2-14); CHLORIDE 105 MEQ/L (99-109); GLUCOSE 82 mg/dL (70-99); POTASSIUM 4.8 MEQ/L (3.7-5.4); SAMPLE HEMOLYSIS CHECK 0; SAMPLE ICTERIC CHECK 0; SAMPLE LIPEMIA CHECK 0; SODIUM 139 MEQ/L (136-147); UREA NITROGEN (BUN) 34 mg/dL (9-23)
[2017-01-10 07:25] LABS: GFR ESTIMATE (CALCULATED) 29 mL/min/
[2017-01-10 07:40] VITALS: BP 114/56
[2017-01-10 08:53] LABS: HEMATOCRIT 23.4 % (38.0-50.0); MCV 86.3 FL (86-99)
[2017-01-10 09:50] VITALS: BP 121/65
[2017-01-10 13:27] VITALS: BP 118/60
[2017-01-10 16:24] VITALS: BP 115/60
[2017-01-10 23:22] VITALS: BP 145/72
[2017-01-11 06:57] LABS: MCH 27.6 PG (29.0-34.0); MCHC 32.1 G/DL (30.0-36.0); MEAN PLAT.VOLUME 10.9 uM^3 (9.0-12.4); PLATELET COUNT 206 K/uL (156-360); RBC DIS.WIDTH-CV 20.2 % (11.8-14.6); RBC DIS.WIDTH-SD 62.8 % (39-53); RED BLOOD COUNT 2.79 M/uL (4.00-5.50); WHITE BLOOD COUNT 7.9 K/uL (4.1-10.2)
[2017-01-11 07:21] LABS: ANION GAP 11 MEQ/L (2-14); CHLORIDE 105 MEQ/L (99-109); GFR ESTIMATE (CALCULATED) 27 mL/min/; GLUCOSE 107 mg/dL (70-99); POTASSIUM 4.9 MEQ/L (3.7-5.4); SAMPLE HEMOLYSIS CHECK 0; SAMPLE ICTERIC CHECK 0; SAMPLE LIPEMIA CHECK 0; SODIUM 139 MEQ/L (136-147); UREA NITROGEN (BUN) 40 mg/dL (9-23)
[2017-01-11 07:49] VITALS: BP 139/71
[2017-01-11 11:48] VITALS: BP 138/71
[2017-01-11 15:44] VITALS: BP 129/71
[2017-01-11 21:34] VITALS: BP 134/68
[2017-01-11 23:58] VITALS: BP 136/84
[2017-01-12 06:44] LABS: ANION GAP 9 MEQ/L (2-14); CHLORIDE 108 MEQ/L (99-109); GFR ESTIMATE (CALCULATED) 23 mL/min/; GLUCOSE 87 mg/dL (70-99); POTASSIUM 5.1 MEQ/L (3.7-5.4); SAMPLE HEMOLYSIS CHECK 0; SAMPLE ICTERIC CHECK 0; SAMPLE LIPEMIA CHECK 0; SODIUM 139 MEQ/L (136-147); UREA NITROGEN (BUN) 43 mg/dL (9-23)
[2017-01-12 07:10] VITALS: BP 114/56
[2017-01-12 11:13] VITALS: BP 135/65
[2017-01-12 15:45] VITALS: BP 179/76
[2017-01-12 20:55] VITALS: BP 142/65
[2017-01-12 23:45] VITALS: BP 133/64
[2017-01-13 04:15] VITALS: BP 114/57
[2017-01-13 07:05] LABS: HEMATOCRIT 21.5 % (38.0-50.0); MCH 27.5 PG (29.0-34.0); MCHC 31.6 G/DL (30.0-36.0); PLATELET COUNT 231 K/uL (156-360); RBC DIS.WIDTH-CV 20.6 % (11.8-14.6); RBC DIS.WIDTH-SD 65.1 % (39-53); RED BLOOD COUNT 2.47 M/uL (4.00-5.50); WHITE BLOOD COUNT 8.6 K/uL (4.1-10.2)
[2017-01-13 07:12] LABS: ANION GAP 9 MEQ/L (2-14); CHLORIDE 108 MEQ/L (99-109); GFR ESTIMATE (CALCULATED) 20 mL/min/; GLUCOSE 90 mg/dL (70-99); SAMPLE HEMOLYSIS CHECK 0; SAMPLE ICTERIC CHECK 0; SAMPLE LIPEMIA CHECK 0; SODIUM 140 MEQ/L (136-147); UREA NITROGEN (BUN) 48 mg/dL (9-23)
[2017-01-13 08:09] VITALS: BP 126/61
[2017-01-13 11:41] VITALS: BP 173/77
[2017-01-13 15:27] VITALS: BP 160/76
[2017-01-13 23:48] VITALS: BP 152/63
[2017-01-14 07:12] LABS: HEMATOCRIT 20.8 % (38.0-50.0); MCH 27.5 PG (29.0-34.0); MCHC 31.7 G/DL (30.0-36.0); MCV 86.7 FL (86-99); MEAN PLAT.VOLUME 10.6 uM^3 (9.0-12.4); PLATELET COUNT 248 K/uL (156-360); RBC DIS.WIDTH-CV 20.2 % (11.8-14.6); RBC DIS.WIDTH-SD 62.3 % (39-53); WHITE BLOOD COUNT 9.3 K/uL (4.1-10.2)
[2017-01-14 07:46] LABS: ANION GAP 7 MEQ/L (2-14); CHLORIDE 107 MEQ/L (99-109); GFR ESTIMATE (CALCULATED) 19 mL/min/; GLUCOSE 83 mg/dL (70-99); SAMPLE HEMOLYSIS CHECK 0; SAMPLE ICTERIC CHECK 0; SAMPLE LIPEMIA CHECK 0; SODIUM 137 MEQ/L (136-147); UREA NITROGEN (BUN) 49 mg/dL (9-23)
[2017-01-14 07:59] VITALS: BP 147/70
[2017-01-14 10:44] VITALS: BP 167/78
[2017-01-14 18:35] VITALS: BP 162/78
[2017-01-14 18:50] LABS: IMM.RETIC FRACTION 15.5 % (3-19); RETIC HGB EQUIVALENT 32.8 (28-36)
[2017-01-14 19:00] VITALS: BP 154/74
[2017-01-14 19:20] LABS: RETICULOCYTE COUNT 1.5 % (0.5-1.8)
[2017-01-14 22:55] VITALS: BP 146/70
[2017-01-15 07:46] LABS: HEMATOCRIT 27.9 % (38.0-50.0); MCH 27.2 PG (29.0-34.0); MCHC 31.5 G/DL (30.0-36.0); MCV 86.4 FL (86-99); MEAN PLAT.VOLUME 10.1 uM^3 (9.0-12.4); PLATELET COUNT 269 K/uL (156-360); RBC DIS.WIDTH-CV 18.7 % (11.8-14.6); RBC DIS.WIDTH-SD 57.9 % (39-53); RED BLOOD COUNT 3.23 M/uL (4.00-5.50)
[2017-01-15 07:48] VITALS: BP 139/73
[2017-01-15 08:29] LABS: ANION GAP 13 MEQ/L (2-14); C-REACTIVE PROTEIN 41.9 MG/L (0-10); CHLORIDE 103 MEQ/L (99-109); GFR ESTIMATE (CALCULATED) 34 mL/min/; GLUCOSE 79 mg/dL (70-99); POTASSIUM 4.4 MEQ/L (3.7-5.4); PREALBUMIN 22.1 mg/dL (10-40); SAMPLE HEMOLYSIS CHECK 0; SAMPLE ICTERIC CHECK 0; SAMPLE LIPEMIA CHECK 0; SODIUM 140 MEQ/L (136-147); UREA NITROGEN (BUN) 25 mg/dL (9-23)
[2017-01-15 09:01] LABS: ERTH.SED.RATE 85 MM/HR (0-20)
[2017-01-15 15:00] VITALS: BP 157/73
[2017-01-16 00:33] VITALS: BP 132/65
[2017-01-16 07:13] VITALS: BP 157/80
[2017-01-16 13:37] LABS: HEMATOCRIT 25.7 % (38.0-50.0); MCH 27.5 PG (29.0-34.0); MCHC 30.7 G/DL (30.0-36.0); MCV 89.5 FL (86-99); MEAN PLAT.VOLUME 9.8 uM^3 (9.0-12.4); PLATELET COUNT 254 K/uL (156-360); RBC DIS.WIDTH-CV 19.6 % (11.8-14.6); RBC DIS.WIDTH-SD 62.8 % (39-53); RED BLOOD COUNT 2.87 M/uL (4.00-5.50); WHITE BLOOD COUNT 9.7 K/uL (4.1-10.2)
[2017-01-16 13:47] LABS: ANION GAP 8 MEQ/L (2-14); CHLORIDE 103 MEQ/L (99-109); POTASSIUM 4.3 MEQ/L (3.7-5.4); SAMPLE HEMOLYSIS CHECK 0; SAMPLE ICTERIC CHECK 0; SAMPLE LIPEMIA CHECK 0; SODIUM 138 MEQ/L (136-147)
[2017-01-16 13:52] LABS: GFR ESTIMATE (CALCULATED) 29 mL/min/; UREA NITROGEN (BUN) 34 mg/dL (9-23)
[2017-01-16 14:08] LABS: GLUCOSE 108 mg/dL (70-99)
[2017-01-16 20:00] VITALS: BP 132/78
[2017-01-16 23:46] VITALS: BP 145/75
[2017-01-17 03:56] VITALS: BP 130/68
[2017-01-17 06:05] LABS: MCH 28.6 PG (29.0-34.0); MCV 89.3 FL (86-99); MEAN PLAT.VOLUME 10.4 uM^3 (9.0-12.4); PLATELET COUNT 231 K/uL (156-360); RBC DIS.WIDTH-CV 19.6 % (11.8-14.6); RBC DIS.WIDTH-SD 63.7 % (39-53); WHITE BLOOD COUNT 9.6 K/uL (4.1-10.2)
[2017-01-17 06:41] LABS: ANION GAP 8 MEQ/L (2-14); CHLORIDE 101 MEQ/L (99-109); GFR ESTIMATE (CALCULATED) 36 mL/min/; GLUCOSE 85 mg/dL (70-99); POTASSIUM 4.6 MEQ/L (3.7-5.4); SAMPLE HEMOLYSIS CHECK 0; SAMPLE ICTERIC CHECK 0; SAMPLE LIPEMIA CHECK 0; SODIUM 136 MEQ/L (136-147); UREA NITROGEN (BUN) 25 mg/dL (9-23)
[2017-01-17 08:55] VITALS: BP 149/72
[2017-01-17 12:03] VITALS: BP 156/76
[2017-01-17 16:25] VITALS: BP 168/79
[2017-01-17 18:45] LABS: BASOPHIL COUNT 0.1 K/uL (0-0.1); EOSINOPHIL (%) 2.7 % (0-5); EOSINOPHIL COUNT 0.2 K/uL (0-0.3); HEMATOCRIT 25.5 % (38.0-50.0); IMMATURE GRANULOCYTE (%) 0.4 % (0.0-0.7); INSTRUMENT ABS NEUTROPHIL CT 6.3 K/uL; LYMPHOCYTE COUNT 1.3 K/uL (1.0-2.8); MCH 28.6 PG (29.0-34.0); MCHC 31.8 G/DL (30.0-36.0); MCV 90.1 FL (86-99); MEAN PLAT.VOLUME 10.5 uM^3 (9.0-12.4); NEUTROPHIL (%) 70.9 % (45-76); NEUTROPHIL COUNT 6.3 K/uL (1.8-6.4); PLATELET COUNT 241 K/uL (156-360); RBC DIS.WIDTH-CV 19.7 % (11.8-14.6); RBC DIS.WIDTH-SD 64.5 % (39-53); RED BLOOD COUNT 2.83 M/uL (4.00-5.50); WHITE BLOOD COUNT 8.9 K/uL (4.1-10.2)
[2017-01-17 19:25] LABS: ANION GAP 9 MEQ/L (2-14); CHLORIDE 100 MEQ/L (99-109); GFR ESTIMATE (CALCULATED) 27 mL/min/; GLUCOSE 122 mg/dL (70-99); HDL CHOLESTEROL 54 MG/DL (Desirable>=40); NON-HDL CHOLESTEROL 94 mg/dL (Desirable<160); SAMPLE HEMOLYSIS CHECK 0; SAMPLE ICTERIC CHECK 0; SAMPLE LIPEMIA CHECK 0; SODIUM 136 MEQ/L (136-147); TOTAL CHOLESTEROL 148 mg/dL (Desirable<200); UREA NITROGEN (BUN) 29 mg/dL (9-23)
[2017-01-18 00:20] VITALS: BP 133/66
[2017-01-18 03:57] VITALS: BP 138/67
[2017-01-18 07:00] VITALS: BP 125/63
[2017-01-18 08:02] LABS: BASOPHIL COUNT 0.1 K/uL (0-0.1); EOSINOPHIL (%) 2.8 % (0-5); EOSINOPHIL COUNT 0.2 K/uL (0-0.3); HEMATOCRIT 24.7 % (38.0-50.0); IMMATURE GRANULOCYTE (%) 0.5 % (0.0-0.7); LYMPHOCYTE COUNT 0.8 K/uL (1.0-2.8); MCH 27.6 PG (29.0-34.0); MCHC 30.4 G/DL (30.0-36.0); MCV 90.8 FL (86-99); MEAN PLAT.VOLUME 9.9 uM^3 (9.0-12.4); MONOCYTE (%) 9.1 % (3-12); MONOCYTE COUNT 0.7 K/uL (0-0.8); NEUTROPHIL (%) 76.5 % (45-76); PLATELET COUNT 224 K/uL (156-360); RBC DIS.WIDTH-CV 19.9 % (11.8-14.6); RBC DIS.WIDTH-SD 65.2 % (39-53); RED BLOOD COUNT 2.72 M/uL (4.00-5.50); WHITE BLOOD COUNT 7.9 K/uL (4.1-10.2)
[2017-01-18 08:10] LABS: ANION GAP 10 MEQ/L (2-14); CHLORIDE 102 MEQ/L (99-109); POTASSIUM 4.3 MEQ/L (3.7-5.4); SAMPLE HEMOLYSIS CHECK 0; SAMPLE ICTERIC CHECK 0; SAMPLE LIPEMIA CHECK 0; SODIUM 138 MEQ/L (136-147)
[2017-01-18 08:15] LABS: GFR ESTIMATE (CALCULATED) 25 mL/min/; GLUCOSE 93 mg/dL (70-99); UREA NITROGEN (BUN) 33 mg/dL (9-23)
== END 2017-01-18 14:50 | DRG 314 ==
LOC: EME 10:01 → 5EAST 12:25 → 5SOUTH 12:25 → EDOF 12:25 → ENRESERV 12:38 → 5SOUTH 14:36 → 5EAST 01-09 22:44 → 5SOUTH 01-09 22:44 → ENRESERV 01-09 23:04 → 5EAST 01-10 00:47 → ENPENDDIS 01-18 15:00
PROVIDERS: Emergency Medicine; Hospitalist; Internal Medicine; Internal Medicine Hematology & Oncology; Internal Medicine Infectious Disease; Internal Medicine Nephrology; Physician Assistant Medical
PROC: 0JPT3XZ Removal of Tunneled Vascular Access Device from Trunk Subcutaneous Tissue and Fascia, Percutaneous Approach (ICD-10-PCS; principal; 2017-01-08)
PROC: 02HV33Z Insertion of Infusion Device into Superior Vena Cava, Percutaneous Approach (ICD-10-PCS; 2017-01-14)
DX: T82.7XXA Infection and inflammatory reaction due to other cardiac and vascular devices, implants and grafts, initial encounter (principal); N18.6 End stage renal disease; M31.1 Thrombotic microangiopathy; R78.81 Bacteremia; Z68.1 Body mass index [BMI] 19.9 or less, adult; N02.2 Recurrent and persistent hematuria with diffuse membranous glomerulonephritis; N39.0 Urinary tract infection, site not specified; I13.2 Hypertensive heart and chronic kidney disease with heart failure and with stage 5 chronic kidney disease, or end stage renal disease; R64 Cachexia; E78.5 Hyperlipidemia, unspecified; J44.9 Chronic obstructive pulmonary disease, unspecified; G47.30 Sleep apnea, unspecified; D50.8 Other iron deficiency anemias; Y83.8 Other surgical procedures as the cause of abnormal reaction of the patient, or of later complication, without mention of misadventure at the time of the procedure; E55.9 Vitamin D deficiency, unspecified; E83.39 Other disorders of phosphorus metabolism; G40.909 Epilepsy, unspecified, not intractable, without status epilepticus; I87.8 Other specified disorders of veins; R30.0 Dysuria; D63.1 Anemia in chronic kidney disease; K21.9 Gastro-esophageal reflux disease without esophagitis; N40.0 Benign prostatic hyperplasia without lower urinary tract symptoms; F32.9 Major depressive disorder, single episode, unspecified; B96.20 Unspecified Escherichia coli [E. coli] as the cause of diseases classified elsewhere; E83.51 Hypocalcemia; J38.00 Paralysis of vocal cords and larynx, unspecified; R19.7 Diarrhea, unspecified; Z87.440 Personal history of urinary (tract) infections; Z87.891 Personal history of nicotine dependence; Z99.2 Dependence on renal dialysis; Z91.19 Patient's noncompliance with other medical treatment and regimen
CPT/HCPCS: 71010; 74176; 80048; 80069; 81003; 82575; 82607; 82746; 83605; 83615; 83718; 84100; 84134; 85014; 85018; 85025; 85027; 85045; 85651; 86140; 86850; 86900; 86901; 86920; 87040; 87070; 87077; 87086; 87186; 87493; 87502; 87801; 93971; 94640; 94640 76; 97530 GP; 99281; 99285; C1750; C1753; C1769; C1788; C1894; J0692; J0696; J0881; J1644; J1756; J2543; J3370; J7050; P9016; Q0167

== ENCOUNTER 2017-01-20 14:26 | Day surgery (SDC) | payer OTHER ==
[2017-01-20] MEDS ORDERED: PREDNISONE20 MG PO (14:31)
[2017-01-20] MEDS ORDERED: WARFARIN SODIUM1 MG PO (14:34)
[2017-01-20] MEDS ORDERED: ADVAIR HFA120 INHALA IH (14:34)
[2017-01-20] MEDS ORDERED: FUROSEMIDE40 MG PO (14:36)
[2017-01-20] MEDS ORDERED: KEPPRA250 MG PO (14:37)
[2017-01-20] MEDS ORDERED: METOPROLOL TART25 MG PO (14:38)
[2017-01-20] MEDS ORDERED: TYLENOL REGULA325 MG PO (14:40)
[2017-01-20 16:19] LABS: METH RESISTANT S AUREUS PCR NEGATIVE (NEGATIVE)
[2017-01-20 16:21] LABS: PROBE CHECK PASS; SPECIMEN PROCESSING CONTROL PASS
== END 2017-01-20 16:15 ==
LOC: CATH 14:26
PROVIDERS: Surgery
DX: I12.9 Hypertensive chronic kidney disease with stage 1 through stage 4 chronic kidney disease, or unspecified chronic kidney disease (principal); N18.9 Chronic kidney disease, unspecified; I71.2 Thoracic aortic aneurysm, without rupture; F32.9 Major depressive disorder, single episode, unspecified
CPT/HCPCS: 87641; C1750; C1769; C1894; J0690; J1644; J2250; J3010; J7050; S0020

== ENCOUNTER 2017-01-21 00:08 | Observation (INO) | payer OTHER ==
[~2017-01-21] VITALS: Ht 172.7 cm; Wt 46.1 kg
[~2017-01-21 00:08] MED LIST changes: +ADVAIR HFA120 INHALA IH; +METOPROLOL TART25 MG PO; +TYLENOL REGULA325 MG PO; +WARFARIN SODIUM1 MG PO
[2017-01-21 01:13] LABS: EOSINOPHIL (%) 2.5 % (0-5); EOSINOPHIL COUNT 0.3 K/uL (0-0.3); HEMATOCRIT 26.3 % (38.0-50.0); IMMATURE GRANULOCYTE (%) 0.3 % (0.0-0.7); INSTRUMENT ABS NEUTROPHIL CT 9.2 K/uL; LYMPHOCYTE COUNT 1.2 K/uL (1.0-2.8); MCH 27.8 PG (29.0-34.0); MCHC 31.6 G/DL (30.0-36.0); MEAN PLAT.VOLUME 9.6 uM^3 (9.0-12.4); MONOCYTE (%) 6.5 % (3-12); MONOCYTE COUNT 0.7 K/uL (0-0.8); NEUTROPHIL COUNT 9.2 K/uL (1.8-6.4); PLATELET COUNT 236 K/uL (156-360); RBC DIS.WIDTH-SD 62.1 % (39-53); RED BLOOD COUNT 2.99 M/uL (4.00-5.50); WHITE BLOOD COUNT 11.5 K/uL (4.1-10.2)
[2017-01-21 01:22] LABS: INTER. NORMALIZED RATIO 1.2; PROTHROMBIN TIME 13.2 SEC (10.2-12.9)
[2017-01-21 01:26] LABS: CHLORIDE 100 mEq/L (99-109); POTASSIUM 4.4 mEq/L (3.7-5.4); SODIUM 133 mEq/L (136-147)
[2017-01-21 01:28] LABS: GLUCOSE 84 mg/dL (70-99)
[2017-01-21 01:29] LABS: ANION GAP 12 MEQ/L (2-14)
[2017-01-21 01:32] LABS: GFR ESTIMATE (CALCULATED) 27 mL/min/
[2017-01-21 01:33] LABS: UREA NITROGEN (BUN) 39 mg/dL (9-23)
[2017-01-21 01:47] LABS: PTT 32.2 SEC (25-37)
[2017-01-21 06:54] VITALS: BP 189/91
[2017-01-21 08:22] LABS: METH RESISTANT S AUREUS PCR NEGATIVE (NEGATIVE)
[2017-01-21 08:23] LABS: PROBE CHECK PASS; SPECIMEN PROCESSING CONTROL PASS
[2017-01-21 09:09] LABS: HEMATOCRIT 28.1 % (38.0-50.0); MCH 28.1 PG (29.0-34.0); MCHC 31.3 G/DL (30.0-36.0); MCV 89.8 FL (86-99); MEAN PLAT.VOLUME 9.2 uM^3 (9.0-12.4); PLATELET COUNT 216 K/uL (156-360); RBC DIS.WIDTH-CV 19.4 % (11.8-14.6); RBC DIS.WIDTH-SD 63.5 % (39-53); RED BLOOD COUNT 3.13 M/uL (4.00-5.50); WHITE BLOOD COUNT 9.7 K/uL (4.1-10.2)
[2017-01-21 10:56] VITALS: BP 170/86
[2017-01-21 16:30] VITALS: BP 136/66
== END 2017-01-21 18:09 ==
LOC: EME 00:08 → EDOF 04:03 → 4EAST 04:03 → EDOF 04:03 → ENRESERV 04:43 → 4EAST 06:21
PROVIDERS: Emergency Medicine; Surgery
PROC: 0HQ5XZZ Repair Chest Skin, External Approach (ICD-10-PCS; principal; 2017-01-21)
PROC: 5A1D70Z Performance of Urinary Filtration, Intermittent, Less than 6 Hours Per Day (ICD-10-PCS; 2017-01-21)
DX: T82.838A Hemorrhage due to vascular prosthetic devices, implants and grafts, initial encounter (principal); I12.0 Hypertensive chronic kidney disease with stage 5 chronic kidney disease or end stage renal disease; N18.6 End stage renal disease; Z99.2 Dependence on renal dialysis; Z95.820 Peripheral vascular angioplasty status with implants and grafts; I71.2 Thoracic aortic aneurysm, without rupture; N40.0 Benign prostatic hyperplasia without lower urinary tract symptoms; J44.9 Chronic obstructive pulmonary disease, unspecified; Z86.718 Personal history of other venous thrombosis and embolism; K21.9 Gastro-esophageal reflux disease without esophagitis; Z79.01 Long term (current) use of anticoagulants; Z79.82 Long term (current) use of aspirin; Z87.891 Personal history of nicotine dependence
CPT/HCPCS: 80048; 85025; 85027; 85610; 85730; 86850; 86900; 86901; 86920; 87641; 94640; 99202; 99281; 99285; G0257; G0378; Q0167

== ENCOUNTER 2017-01-25 21:19 | Emergency (ER) | payer OTHER ==
[~2017-01-25] VITALS: Ht 180.3 cm; Wt 42.0 kg
[2017-01-25 22:42] LABS: HEMATOCRIT 25.7 % (38.0-50.0); MCH 27.4 PG (29.0-34.0); MCV 91.5 FL (86-99); MEAN PLAT.VOLUME 9.9 uM^3 (9.0-12.4); PLATELET COUNT 189 K/uL (156-360); RBC DIS.WIDTH-CV 18.6 % (11.8-14.6); RBC DIS.WIDTH-SD 61.1 % (39-53); RED BLOOD COUNT 2.81 M/uL (4.00-5.50); WHITE BLOOD COUNT 12.6 K/uL (4.1-10.2)
[2017-01-25 22:57] LABS: CHLORIDE 99 mEq/L (99-109); POTASSIUM 4.6 mEq/L (3.7-5.4)
[2017-01-25 22:59] LABS: GLUCOSE 139 mg/dL (70-99)
[2017-01-25 23:00] LABS: ANION GAP 19 MEQ/L (2-14)
[2017-01-25 23:03] LABS: UREA NITROGEN (BUN) 32 mg/dL (9-23)
[2017-01-25 23:05] LABS: TROP-I INTERPRETATION NEGATIVE; TROPONIN-I 0.01 ng/mL (0.0-0.30)
[2017-01-25 23:07] LABS: GFR ESTIMATE (CALCULATED) 34 mL/min/; SODIUM 141 mEq/L (136-147)
[2017-01-26] MEDS ORDERED: KEPPRA500 MG PO (02:00)
[2017-01-26 02:16] LABS: ADD MIUA? YES; BILIRUBIN NEGATIVE; BLOOD NEGATIVE; COLOR YELLOW ((YELLOW)); GLUCOSE (STRIP) 50; KETONES NEGATIVE; LEUKOCYTES NEGATIVE; NITRITE NEGATIVE; PROTEIN (STRIP) >=500; SPECIFIC GRAVITY 1.014 (1.000-1.030); UROBILINOGEN 0.2 MG/DL (0.2-1.0)
[2017-01-26 02:45] LABS: BACTERIA RARE /HPF; EPITHELIAL CELLS 2+ /HPF; HYALINE CASTS 0-5 /LPF; MUCUS TRACE /LPF; UCUL ADDED? NO; WHITE BLOOD CELLS 0-5 /HPF (0-5)
[2017-01-26 04:41] VITALS: BP 101/62
== END 2017-01-26 04:41 ==
LOC: EME → EDBD 21:19 → EME 01-26 04:41
PROVIDERS: Emergency Medicine
DX: R56.9 Unspecified convulsions (principal); J44.9 Chronic obstructive pulmonary disease, unspecified; I10 Essential (primary) hypertension; K21.9 Gastro-esophageal reflux disease without esophagitis; N18.9 Chronic kidney disease, unspecified; I12.9 Hypertensive chronic kidney disease with stage 1 through stage 4 chronic kidney disease, or unspecified chronic kidney disease; Z79.82 Long term (current) use of aspirin; Z79.891 Long term (current) use of opiate analgesic; Z87.891 Personal history of nicotine dependence
CPT/HCPCS: 70450; 71020; 80048; 81003; 84484; 85027; 87086; 93005; 99281; 99284; J1953; J2250; J7050

== ENCOUNTER 2017-01-26 16:42 | Inpatient (IN) | payer OTHER ==
[~2017-01-26] VITALS: Ht 165.1 cm; Wt 49.2 kg
[2017-01-26 16:58] LABS: EOSINOPHIL (%) 0.2 % (0-5); HEMATOCRIT 23.3 % (38.0-50.0); IMMATURE GRANULOCYTE (%) 0.5 % (0.0-0.7); IMMATURE GRANULOCYTE COUNT 0.1 K/uL; INSTRUMENT ABS NEUTROPHIL CT 12.4 K/uL; LYMPHOCYTE COUNT 0.4 K/uL (1.0-2.8); MCH 27.7 PG (29.0-34.0); MCHC 31.3 G/DL (30.0-36.0); MCV 88.3 FL (86-99); MEAN PLAT.VOLUME 9.1 uM^3 (9.0-12.4); MONOCYTE (%) 1.7 % (3-12); MONOCYTE COUNT 0.2 K/uL (0-0.8); NEUTROPHIL (%) 94.3 % (45-76); NEUTROPHIL COUNT 12.4 K/uL (1.8-6.4); PLATELET COUNT 167 K/uL (156-360); RBC DIS.WIDTH-CV 18.7 % (11.8-14.6); RBC DIS.WIDTH-SD 60.5 % (39-53); RED BLOOD COUNT 2.64 M/uL (4.00-5.50); WHITE BLOOD COUNT 13.2 K/uL (4.1-10.2)
[2017-01-26 17:08] LABS: CHLORIDE 99 mEq/L (99-109); POTASSIUM 4.4 mEq/L (3.7-5.4); SODIUM 137 mEq/L (136-147)
[2017-01-26 17:10] LABS: GLUCOSE 115 mg/dL (70-99)
[2017-01-26 17:11] LABS: ANION GAP 11 MEQ/L (2-14)
[2017-01-26 17:14] LABS: GFR ESTIMATE (CALCULATED) 26 mL/min/
[2017-01-26 17:15] LABS: UREA NITROGEN (BUN) 46 mg/dL (9-23)
[2017-01-26 23:19] VITALS: BP 159/77
[2017-01-27 00:39] VITALS: BP 159/77
[2017-01-27 03:24] VITALS: BP 159/81
[2017-01-27 08:46] VITALS: BP 184/79
[2017-01-27 09:40] LABS: HEMATOCRIT 22.4 % (38.0-50.0); MCHC 32.1 G/DL (30.0-36.0); MCV 87.2 FL (86-99); MEAN PLAT.VOLUME 10.1 uM^3 (9.0-12.4); PLATELET COUNT 152 K/uL (156-360); RBC DIS.WIDTH-SD 60.4 % (39-53); RED BLOOD COUNT 2.57 M/uL (4.00-5.50); WHITE BLOOD COUNT 8.9 K/uL (4.1-10.2)
[2017-01-27 16:36] VITALS: BP 155/37
[2017-01-27 20:15] VITALS: BP 165/83
[2017-01-27 23:36] VITALS: BP 116/59
[2017-01-28 03:36] VITALS: BP 140/65
[2017-01-28 07:52] VITALS: BP 125/72
[2017-01-28 11:33] LABS: HEMATOCRIT 27.3 % (38.0-50.0); MCH 27.5 PG (29.0-34.0); MCHC 30.8 G/DL (30.0-36.0); MCV 89.2 FL (86-99); MEAN PLAT.VOLUME 10.7 uM^3 (9.0-12.4); PLATELET COUNT 157 K/uL (156-360); RBC DIS.WIDTH-CV 18.6 % (11.8-14.6); RBC DIS.WIDTH-SD 60.5 % (39-53); RED BLOOD COUNT 3.06 M/uL (4.00-5.50); WHITE BLOOD COUNT 9.3 K/uL (4.1-10.2)
[2017-01-28 11:36] VITALS: BP 124/72
[2017-01-28 13:22] LABS: ANION GAP 14 MEQ/L (2-14); CHLORIDE 98 MEQ/L (99-109); GFR ESTIMATE (CALCULATED) 26 mL/min/; GLUCOSE 109 mg/dL (70-99); SAMPLE HEMOLYSIS CHECK 0; SAMPLE ICTERIC CHECK 0; SAMPLE LIPEMIA CHECK 0; SODIUM 135 MEQ/L (136-147); UREA NITROGEN (BUN) 54 mg/dL (9-23)
[2017-01-28 13:29] LABS: POTASSIUM 3.3 MEQ/L (3.7-5.4)
[2017-01-28 19:00] VITALS: BP 08/60; BP 108/60
[2017-01-28 20:00] VITALS: BP 160/72
[2017-01-28 20:14] VITALS: BP 111/55
[2017-01-29 04:02] VITALS: BP 152/90
[2017-01-29 07:28] VITALS: BP 171/81
[2017-01-29 12:00] VITALS: BP 118/59
[2017-01-29 16:00] VITALS: BP 123/63
[2017-01-29 20:00] VITALS: BP 135/66
[2017-01-29 23:49] VITALS: BP 127/62
[2017-01-30] VITALS (8 sets, daily range): BP systolic 114–134; BP diastolic 53–81
[2017-01-30 08:09] LABS: BASOPHIL COUNT 0.1 K/uL (0-0.1); EOSINOPHIL COUNT 0.4 K/uL (0-0.3); HEMATOCRIT 27.1 % (38.0-50.0); IMMATURE GRANULOCYTE (%) 0.3 % (0.0-0.7); INSTRUMENT ABS NEUTROPHIL CT 5.6 K/uL; LYMPHOCYTE COUNT 0.9 K/uL (1.0-2.8); MCV 87.1 FL (86-99); MEAN PLAT.VOLUME 10.1 uM^3 (9.0-12.4); MONOCYTE (%) 7.7 % (3-12); MONOCYTE COUNT 0.6 K/uL (0-0.8); NEUTROPHIL (%) 74.3 % (45-76); NEUTROPHIL COUNT 5.6 K/uL (1.8-6.4); PLATELET COUNT 150 K/uL (156-360); RBC DIS.WIDTH-CV 19.2 % (11.8-14.6); RBC DIS.WIDTH-SD 61.8 % (39-53); RED BLOOD COUNT 3.11 M/uL (4.00-5.50); WHITE BLOOD COUNT 7.5 K/uL (4.1-10.2)
[2017-01-30 08:31] LABS: ALKALINE PHOSPHATASE 48 IU/L (3-129); ANION GAP 11 MEQ/L (2-14); CHLORIDE 102 MEQ/L (99-109); DIRECT BILIRUBIN 0.1 mg/dL (0.0-0.3); GFR ESTIMATE (CALCULATED) 31 mL/min/; GLUCOSE 110 mg/dL (70-99); POTASSIUM 2.9 MEQ/L (3.7-5.4); SAMPLE HEMOLYSIS CHECK 0; SAMPLE ICTERIC CHECK 0; SAMPLE LIPEMIA CHECK 0; SODIUM 141 MEQ/L (136-147); TOTAL BILIRUBIN 0.5 MG/DL (0.0-1.0); UREA NITROGEN (BUN) 22 mg/dL (9-23)
[2017-01-30 10:24] LABS: AHBS INDEX 572.29
[2017-01-30 10:29] LABS: HEPATITIS B SURFACE ANTIBODY REACTIVE
[2017-01-31 03:33] VITALS: BP 154/74
[2017-01-31 05:51] LABS: HEMATOCRIT 30.4 % (38.0-50.0); MCHC 31.6 G/DL (30.0-36.0); MCV 88.6 FL (86-99); MEAN PLAT.VOLUME 10.9 uM^3 (9.0-12.4); PLATELET COUNT 132 K/uL (156-360); RBC DIS.WIDTH-CV 19.2 % (11.8-14.6); RBC DIS.WIDTH-SD 62.5 % (39-53); RED BLOOD COUNT 3.43 M/uL (4.00-5.50); WHITE BLOOD COUNT 8.4 K/uL (4.1-10.2)
[2017-01-31 06:16] LABS: ANION GAP 7 MEQ/L (2-14); CHLORIDE 104 MEQ/L (99-109); MAGNESIUM 1.8 mg/dl (1.3-2.7); SAMPLE HEMOLYSIS CHECK 0; SAMPLE ICTERIC CHECK 0; SAMPLE LIPEMIA CHECK 0; SODIUM 140 MEQ/L (136-147); UREA NITROGEN (BUN) 11 mg/dL (9-23)
[2017-01-31 06:17] LABS: GFR ESTIMATE (CALCULATED) 47 mL/min/; GLUCOSE 77 mg/dL (70-99); POTASSIUM 5.4 MEQ/L (3.7-5.4)
[2017-01-31 07:50] VITALS: BP 150/77
[2017-01-31 10:50] VITALS: BP 137/73
[2017-01-31 15:57] VITALS: BP 179/88
[2017-01-31 19:20] VITALS: BP 165/79
[2017-02-01 00:02] VITALS: BP 146/71
[2017-02-01 08:05] LABS: ANION GAP 7 MEQ/L (2-14); CHLORIDE 104 MEQ/L (99-109); GFR ESTIMATE (CALCULATED) 32 mL/min/; POTASSIUM 4.6 MEQ/L (3.7-5.4); SAMPLE HEMOLYSIS CHECK 0; SAMPLE ICTERIC CHECK 0; SAMPLE LIPEMIA CHECK 0; SODIUM 137 MEQ/L (136-147); UREA NITROGEN (BUN) 20 mg/dL (9-23)
[2017-02-01 08:06] LABS: GLUCOSE 120 mg/dL (70-99)
[2017-02-01 08:43] LABS: EOSINOPHIL (%) 2.3 % (0-5); EOSINOPHIL COUNT 0.3 K/uL (0-0.3); HEMATOCRIT 26.4 % (38.0-50.0); IMMATURE GRANULOCYTE (%) 0.3 % (0.0-0.7); INSTRUMENT ABS NEUTROPHIL CT 8.8 K/uL; LYMPHOCYTE COUNT 0.8 K/uL (1.0-2.8); MCH 27.6 PG (29.0-34.0); MCHC 31.1 G/DL (30.0-36.0); MCV 88.9 FL (86-99); MEAN PLAT.VOLUME 10.7 uM^3 (9.0-12.4); MONOCYTE (%) 6.8 % (3-12); MONOCYTE COUNT 0.7 K/uL (0-0.8); NEUTROPHIL (%) 82.9 % (45-76); NEUTROPHIL COUNT 8.8 K/uL (1.8-6.4); PLATELET COUNT 147 K/uL (156-360); RBC DIS.WIDTH-CV 18.9 % (11.8-14.6); RBC DIS.WIDTH-SD 61.1 % (39-53); RED BLOOD COUNT 2.97 M/uL (4.00-5.50); WHITE BLOOD COUNT 10.7 K/uL (4.1-10.2)
[2017-02-01 11:37] VITALS: BP 186/89
[2017-02-01] MEDS ORDERED: NEUTRA-PHOS,1 PACKET PO (12:12)
[2017-02-01] MEDS ORDERED: LEVETIRACETAM500 MG PO ×2 (12:12)
[2017-02-01] MEDS ORDERED: DIVALPROEX SOD500 MG PO (12:12)
[2017-02-01 15:25] VITALS: BP 156/72
[2017-02-02 13:09] LABS: HBSG INDEX 0.17
== END 2017-02-01 15:50 | DRG 100 ==
LOC: EME 16:42 → EDOF 21:28 → 5WEST 21:28 → EDOF 21:28 → ENRESERV 21:33 → 5WEST 22:55 → ENRESERV 01-28 10:43 → CANRESERV 01-28 10:43 → ENPENDDIS 02-01 → EDPENDDISTM 02-01 15:30 → 5WEST 02-01 15:50
PROVIDERS: Emergency Medicine; Internal Medicine; Internal Medicine Nephrology; Nurse Practitioner Adult Health; Nurse Practitioner Family; Psychiatry & Neurology Clinical Neurophysiology
PROC: 5A1D70Z Performance of Urinary Filtration, Intermittent, Less than 6 Hours Per Day (ICD-10-PCS; principal; 2017-01-28)
DX: G40.401 Other generalized epilepsy and epileptic syndromes, not intractable, with status epilepticus (principal); N18.6 End stage renal disease; Z68.1 Body mass index [BMI] 19.9 or less, adult; N25.81 Secondary hyperparathyroidism of renal origin; I12.0 Hypertensive chronic kidney disease with stage 5 chronic kidney disease or end stage renal disease; E46 Unspecified protein-calorie malnutrition; D69.6 Thrombocytopenia, unspecified; E78.2 Mixed hyperlipidemia; E87.6 Hypokalemia; G93.89 Other specified disorders of brain; F43.20 Adjustment disorder, unspecified; G40.901 Epilepsy, unspecified, not intractable, with status epilepticus; K21.9 Gastro-esophageal reflux disease without esophagitis; F32.9 Major depressive disorder, single episode, unspecified; J44.9 Chronic obstructive pulmonary disease, unspecified; Z99.2 Dependence on renal dialysis; Z86.73 Personal history of transient ischemic attack (TIA), and cerebral infarction without residual deficits; Z87.891 Personal history of nicotine dependence; Z79.51 Long term (current) use of inhaled steroids; Z79.899 Other long term (current) drug therapy; Z79.82 Long term (current) use of aspirin; D63.1 Anemia in chronic kidney disease
CPT/HCPCS: 70450; 70551; 71010; 71020; 74230; 80048; 80048 91; 80069; 80076; 80164; 81003; 82040; 83735; 84484; 85025; 85027; 86706; 86850; 86900; 86901; 86920; 87086; 87340; 92610 GN; 92611 GN; 93005; 94640; 94640 76; 94760; 99281; 99284; 99285; G0378; J0881; J1165; J1270; J1644; J1756; J1953; J2060; J2250; J7050; P9016; Q0167

== ENCOUNTER 2017-03-26 12:06 | Inpatient (IN) | payer OTHER ==
[~2017-03-26] VITALS: Ht 172.7 cm; Wt 54.1 kg
[~2017-03-26 12:06] MED LIST changes: +APRESOLINE25 MG PO; +ATARAX,VISTARIL25 MG PO; +DEPAKOTE500 MG PO; +DIVALPROEX SOD500 MG PO; -HYDROXYZINE PAM25 MG PO; +LEVETIRACETAM500 MG PO; +NEUTRA-PHOS,1 PACKET PO
[2017-03-26 12:34] LABS: BASOPHIL (%) 0.2 % (0-1); BASOPHIL COUNT 0.1 K/uL (0-0.1); EOSINOPHIL (%) 0.1 % (0-5); HEMATOCRIT 25.4 % (38.0-50.0); HEMOGLOBIN 7.9 G/DL (12.5-16.6); IMMATURE GRANULOCYTE (%) 0.5 % (0.0-0.7); LYMPHOCYTE (%) 4.9 % (15-42); MCH 27.8 PG (29.0-34.0); MCHC 31.1 G/DL (30.0-36.0); MCV 89.4 FL (86-99); MONOCYTE (%) 8.3 % (3-12); MONOCYTE COUNT 1.7 K/uL (0-0.8); NEUTROPHIL COUNT 17.3 K/uL (1.8-6.4); PLATELET COUNT 191 K/uL (156-360); RBC DIS.WIDTH-CV 18.2 % (11.8-14.6); RBC DIS.WIDTH-SD 58.9 % (39-53); RED BLOOD COUNT 2.84 M/uL (4.00-5.50); WHITE BLOOD COUNT 20.1 K/uL (4.1-10.2)
[2017-03-26 12:40] LABS: INTER. NORMALIZED RATIO 1.3
[2017-03-26 12:45] LABS: CHLORIDE 93 mEq/L (99-109)
[2017-03-26 12:46] LABS: POTASSIUM 3.7 mEq/L (3.7-5.4); SODIUM 132 mEq/L (136-147)
[2017-03-26 12:47] LABS: GLUCOSE 114 mg/dL (70-99)
[2017-03-26 12:50] LABS: SERUM ETHYL ALCOHOL < 10 mg/dL
[2017-03-26 12:51] LABS: CREATININE 3.7 mg/dL (0.6-1.3); GFR ESTIMATE (CALCULATED) 22 mL/min/
[2017-03-26 12:52] LABS: UREA NITROGEN (BUN) 27 mg/dL (9-23)
[2017-03-26 12:54] LABS: LIPASE 20 U/L (1.0-51.0)
[2017-03-26 12:54] LABS: TROP-I INTERPRETATION NEGATIVE; TROPONIN-I 0.04 ng/mL (0.0-0.30)
[2017-03-26 12:56] LABS: AMYLASE 403 IU/L (1-118)
[2017-03-26] MEDS ORDERED: SPIRIVA RESPIMAT4 GM IH (18:41)
[2017-03-26] MEDS ORDERED: KEPPRA500 MG PO (18:43)
[2017-03-26] MEDS ORDERED: TYLENOL REGULA325 MG PO (18:53)
[2017-03-26 20:27] LABS: TOTAL BILIRUBIN 0.6 mg/dL (0.0-1.0)
[2017-03-26 20:31] LABS: AST (GOT) 18 IU/L (2-34); DIRECT BILIRUBIN 0.4 mg/dL (0.0-0.3)
[2017-03-26 20:34] LABS: ALBUMIN 2.9 g/dL (3.2-4.8)
[2017-03-26 20:37] LABS: TOTAL PROTEIN 8.6 g/dL (6.4-8.3)
[2017-03-26 20:40] LABS: ALKALINE PHOSPHATASE 46 IU/L (3-129)
[2017-03-26 20:43] LABS: ALT (GPT) 7 IU/L (3-49)
[2017-03-26 21:20] LABS: VALPROIC ACID (DEPAKOTE) 12.5 MCG/ML (50-100)
[2017-03-26 23:26] VITALS: BP 192/98
[2017-03-27] VITALS (7 sets, daily range): BP systolic 147–202; BP diastolic 74–106
[2017-03-27 06:16] LABS: HEMOGLOBIN 8.6 G/DL (12.5-16.6); MCH 27.8 PG (29.0-34.0); MCHC 30.7 G/DL (30.0-36.0); MCV 90.6 FL (86-99); PLATELET COUNT 213 K/uL (156-360); RBC DIS.WIDTH-CV 18.1 % (11.8-14.6); RBC DIS.WIDTH-SD 59.2 % (39-53); RED BLOOD COUNT 3.09 M/uL (4.00-5.50); WHITE BLOOD COUNT 21.9 K/uL (4.1-10.2)
[2017-03-27 06:43] LABS: ALBUMIN 3.2 G/DL (3.2-4.8); ALKALINE PHOSPHATASE 57 IU/L (3-129); ALT (GPT) 9 IU/L (3-49); AST (GOT) 33 IU/L (2-34); CHLORIDE 93 MEQ/L (99-109); SODIUM 132 MEQ/L (136-147); TOTAL BILIRUBIN 0.8 MG/DL (0.0-1.0); TOTAL PROTEIN 8.4 G/DL (6.4-8.3)
[2017-03-27 06:59] LABS: CREATININE 4.8 MG/DL (0.6-1.3); GFR ESTIMATE (CALCULATED) 16 mL/min/; GLUCOSE 76 mg/dL (70-99); POTASSIUM 5.2 MEQ/L (3.7-5.4); UREA NITROGEN (BUN) 44 mg/dL (9-23)
[2017-03-27 10:37] LABS: HDL CHOLESTEROL 52 MG/DL (Desirable>=40); LDL CHOLESTEROL 87 mg/dL (Desirable<100); NON-HDL CHOLESTEROL 103 mg/dL (Desirable<160); TOTAL CHOLESTEROL 155 mg/dL (Desirable<200); TRIGLYCERIDES 82 MG/DL (Normal: <150)
[2017-03-27 10:52] LABS: HEPATITIS B SURFACE ANTIGEN Nonreactive
[2017-03-27 11:04] LABS: PHOSPHORUS 4.4 mg/dL (2.5-4.9)
[2017-03-27 11:35] LABS: Estimated Average Glucose 80 mg/dL (70-123)
[2017-03-27 12:20] LABS: HEMOGLOBIN A1c (GLYCOHEMOGLOB) 4.4 % HGB (Below 5.7)
[2017-03-28] VITALS (13 sets, daily range): BP systolic 90–167; BP diastolic 43–79
[2017-03-28 06:23] LABS: HEMATOCRIT 19.5 % (38.0-50.0); MCH 27.9 PG (29.0-34.0); MCHC 31.3 G/DL (30.0-36.0); PLATELET COUNT 159 K/uL (156-360); RBC DIS.WIDTH-CV 17.9 % (11.8-14.6); RBC DIS.WIDTH-SD 57.2 % (39-53); WHITE BLOOD COUNT 14.9 K/uL (4.1-10.2)
[2017-03-28 06:38] LABS: CHLORIDE 96 MEQ/L (99-109); CREATININE 3.3 MG/DL (0.6-1.3); GFR ESTIMATE (CALCULATED) 25 mL/min/ (58.99-99999); GLUCOSE 83 mg/dL (70-99); POTASSIUM 3.5 MEQ/L (3.7-5.4); SODIUM 136 MEQ/L (136-147); UREA NITROGEN (BUN) 25 mg/dL (9-23)
[2017-03-28 06:43] LABS: HEMOGLOBIN 6.1 G/DL (12.5-16.6); RED BLOOD COUNT 2.19 M/uL (4.00-5.50)
[2017-03-28 07:59] LABS: IRON 31 MCG/DL (35-150); TRANSFERRIN (TIBC) 101.4 mg/dL (215-380); TRANSFERRIN SATUR. 31 % (20-55)
[2017-03-28 19:05] LABS: HEMATOCRIT 26.2 % (38.0-50.0); MCV 88.2 FL (86-99)
[2017-03-28 19:10] LABS: HEMOGLOBIN 8.3 G/DL (12.5-16.6)
[2017-03-29] VITALS (7 sets, daily range): BP systolic 121–156; BP diastolic 61–81
[2017-03-29 02:57] LABS: HEMATOCRIT 26.2 % (38.0-50.0); HEMOGLOBIN 8.6 G/DL (12.5-16.6); MCV 85.9 FL (86-99)
[2017-03-29 03:14] LABS: ALBUMIN 2.6 g/dL (3.2-4.8)
[2017-03-29 03:15] LABS: CHLORIDE 96 mEq/L (99-109); POTASSIUM 3.6 mEq/L (3.7-5.4); SODIUM 132 mEq/L (136-147)
[2017-03-29 03:17] LABS: GLUCOSE 88 mg/dL (70-99)
[2017-03-29 03:20] LABS: PHOSPHORUS 2.9 mg/dL (2.5-4.9)
[2017-03-29 03:21] LABS: GFR ESTIMATE (CALCULATED) 17 mL/min/ (58.99-99999)
[2017-03-29 03:22] LABS: CREATININE 4.6 mg/dL (0.6-1.3); UREA NITROGEN (BUN) 38 mg/dL (9-23)
[2017-03-29 09:44] LABS: HEMATOCRIT 27.7 % (38.0-50.0); HEMOGLOBIN 8.8 G/DL (12.5-16.6); MCH 27.3 PG (29.0-34.0); MCHC 31.8 G/DL (30.0-36.0); PLATELET COUNT 166 K/uL (156-360); RBC DIS.WIDTH-CV 17.1 % (11.8-14.6); RBC DIS.WIDTH-SD 53.6 % (39-53); WHITE BLOOD COUNT 12.8 K/uL (4.1-10.2)
[2017-03-29 09:45] LABS: RED BLOOD COUNT 3.22 M/uL (4.00-5.50)
[2017-03-29 19:23] LABS: HEMATOCRIT 28.4 % (38.0-50.0); HEMOGLOBIN 9.2 G/DL (12.5-16.6); MCV 86.1 FL (86-99)
[2017-03-30 03:45] VITALS: BP 157/79
[2017-03-30 05:58] LABS: HEMATOCRIT 30.9 % (38.0-50.0); HEMOGLOBIN 9.5 G/DL (12.5-16.6); MCHC 30.7 G/DL (30.0-36.0); MCV 87.8 FL (86-99); PLATELET COUNT 159 K/uL (156-360); RBC DIS.WIDTH-CV 17.2 % (11.8-14.6); RBC DIS.WIDTH-SD 55.5 % (39-53); RED BLOOD COUNT 3.52 M/uL (4.00-5.50); WHITE BLOOD COUNT 10.7 K/uL (4.1-10.2)
[2017-03-30 06:21] LABS: CHLORIDE 95 MEQ/L (99-109); GFR ESTIMATE (CALCULATED) 22 mL/min/ (58.99-99999); GLUCOSE 77 mg/dL (70-99); POTASSIUM 4.2 MEQ/L (3.7-5.4); SODIUM 135 MEQ/L (136-147); UREA NITROGEN (BUN) 24 mg/dL (9-23)
[2017-03-30 06:24] LABS: CREATININE 3.6 MG/DL (0.6-1.3)
[2017-03-30 07:36] VITALS: BP 173/90
[2017-03-30 12:14] VITALS: BP 98/52
[2017-03-30 14:45] VITALS: BP 110/52
[2017-03-30 20:06] VITALS: BP 132/65
[2017-03-31] VITALS (7 sets, daily range): BP systolic 99–160; BP diastolic 50–80
[2017-03-31 11:55] LABS: STOOL OCCULT BLD 1ST SPECIMEN NEGATIVE
[2017-04-01 04:00] VITALS: BP 127/61
[2017-04-01 07:25] VITALS: BP 140/68
[2017-04-01 08:11] LABS: HEMATOCRIT 25.3 % (38.0-50.0); HEMOGLOBIN 7.9 G/DL (12.5-16.6); MCH 27.6 PG (29.0-34.0); MCHC 31.2 G/DL (30.0-36.0); MCV 88.5 FL (86-99); PLATELET COUNT 189 K/uL (156-360); RBC DIS.WIDTH-CV 16.9 % (11.8-14.6); RBC DIS.WIDTH-SD 53.9 % (39-53); RED BLOOD COUNT 2.86 M/uL (4.00-5.50)
[2017-04-01 08:42] LABS: CHLORIDE 94 MEQ/L (99-109); GFR ESTIMATE (CALCULATED) 12 mL/min/ (58.99-99999); GLUCOSE 83 mg/dL (70-99); PHOSPHORUS 3.4 mg/dL (2.5-4.9); POTASSIUM 4.5 MEQ/L (3.7-5.4); SODIUM 131 MEQ/L (136-147); UREA NITROGEN (BUN) 51 mg/dL (9-23)
[2017-04-01 12:30] VITALS: BP 200/90
[2017-04-01 13:07] VITALS: BP 165/71
[2017-04-01 19:23] VITALS: BP 124/65
[2017-04-01 23:41] VITALS: BP 121/58
[2017-04-02 04:28] VITALS: BP 123/53
[2017-04-02 05:31] LABS: BASOPHIL (%) 0.5 % (0-1); BASOPHIL COUNT 0.1 K/uL (0-0.1); EOSINOPHIL (%) 1.5 % (0-5); EOSINOPHIL COUNT 0.2 K/uL (0-0.3); HEMATOCRIT 24.8 % (38.0-50.0); HEMOGLOBIN 7.8 G/DL (12.5-16.6); IMMATURE GRANULOCYTE (%) 1.4 % (0.0-0.7); LYMPHOCYTE (%) 10.7 % (15-42); LYMPHOCYTE COUNT 1.2 K/uL (1.0-2.8); MCH 27.8 PG (29.0-34.0); MCHC 31.5 G/DL (30.0-36.0); MCV 88.3 FL (86-99); MONOCYTE (%) 11.5 % (3-12); MONOCYTE COUNT 1.3 K/uL (0-0.8); NEUTROPHIL (%) 74.4 % (45-76); NEUTROPHIL COUNT 8.1 K/uL (1.8-6.4); PLATELET COUNT 194 K/uL (156-360); RBC DIS.WIDTH-CV 16.7 % (11.8-14.6); RED BLOOD COUNT 2.81 M/uL (4.00-5.50); WHITE BLOOD COUNT 10.9 K/uL (4.1-10.2)
[2017-04-02 05:56] LABS: CHLORIDE 97 MEQ/L (99-109); CREATININE 3.9 MG/DL (0.6-1.3); GFR ESTIMATE (CALCULATED) 20 mL/min/ (58.99-99999); GLUCOSE 81 mg/dL (70-99); POTASSIUM 4.6 MEQ/L (3.7-5.4); SODIUM 135 MEQ/L (136-147); UREA NITROGEN (BUN) 26 mg/dL (9-23)
[2017-04-02 09:10] VITALS: BP 130/63
[2017-04-02 11:22] VITALS: BP 121/59
[2017-04-02 15:59] VITALS: BP 133/68
[2017-04-02 19:10] VITALS: BP 172/81
[2017-04-02 22:07] VITALS: BP 150/64
[2017-04-03 00:05] VITALS: BP 110/58
[2017-04-03 04:10] VITALS: BP 82/46
[2017-04-03 05:20] VITALS: BP 98/52
[2017-04-03 06:24] LABS: BASOPHIL (%) 0.3 % (0-1); EOSINOPHIL (%) 1.3 % (0-5); EOSINOPHIL COUNT 0.1 K/uL (0-0.3); HEMOGLOBIN 7.8 G/DL (12.5-16.6); IMMATURE GRANULOCYTE (%) 1.5 % (0.0-0.7); LYMPHOCYTE (%) 11.2 % (15-42); LYMPHOCYTE COUNT 1.1 K/uL (1.0-2.8); MCH 27.8 PG (29.0-34.0); MCHC 31.2 G/DL (30.0-36.0); MONOCYTE (%) 11.2 % (3-12); MONOCYTE COUNT 1.1 K/uL (0-0.8); NEUTROPHIL (%) 74.5 % (45-76); NEUTROPHIL COUNT 7.6 K/uL (1.8-6.4); PLATELET COUNT 236 K/uL (156-360); RBC DIS.WIDTH-CV 16.7 % (11.8-14.6); RBC DIS.WIDTH-SD 54.9 % (39-53); RED BLOOD COUNT 2.81 M/uL (4.00-5.50); WHITE BLOOD COUNT 10.1 K/uL (4.1-10.2)
[2017-04-03 06:54] LABS: CHLORIDE 100 MEQ/L (99-109); GFR ESTIMATE (CALCULATED) 14 mL/min/ (58.99-99999); GLUCOSE 89 mg/dL (70-99); POTASSIUM 4.4 MEQ/L (3.7-5.4); SODIUM 138 MEQ/L (136-147); UREA NITROGEN (BUN) 34 mg/dL (9-23)
[2017-04-03 06:58] LABS: CREATININE 5.5 MG/DL (0.6-1.3)
[2017-04-03 08:00] VITALS: BP 124/64
[2017-04-03 16:00] VITALS: BP 165/64
[2017-04-03 19:27] VITALS: BP 97/54
[2017-04-04 00:19] VITALS: BP 137/67
[2017-04-04 03:47] VITALS: BP 118/62
[2017-04-04 07:15] VITALS: BP 141/76
[2017-04-04 08:42] LABS: BASOPHIL (%) 0.5 % (0-1); BASOPHIL COUNT 0.1 K/uL (0-0.1); EOSINOPHIL (%) 1.6 % (0-5); EOSINOPHIL COUNT 0.2 K/uL (0-0.3); HEMATOCRIT 25.6 % (38.0-50.0); IMMATURE GRANULOCYTE (%) 1.1 % (0.0-0.7); LYMPHOCYTE (%) 11.1 % (15-42); LYMPHOCYTE COUNT 1.2 K/uL (1.0-2.8); MCH 28.1 PG (29.0-34.0); MCHC 31.3 G/DL (30.0-36.0); MCV 89.8 FL (86-99); MONOCYTE (%) 8.1 % (3-12); MONOCYTE COUNT 0.9 K/uL (0-0.8); NEUTROPHIL (%) 77.6 % (45-76); NEUTROPHIL COUNT 8.6 K/uL (1.8-6.4); PLATELET COUNT 275 K/uL (156-360); RBC DIS.WIDTH-CV 16.6 % (11.8-14.6); RBC DIS.WIDTH-SD 54.3 % (39-53); RED BLOOD COUNT 2.85 M/uL (4.00-5.50)
[2017-04-04 09:02] LABS: ALBUMIN 2.5 G/DL (3.2-4.8); CHLORIDE 100 MEQ/L (99-109); CREATININE 6.3 MG/DL (0.6-1.3); GFR ESTIMATE (CALCULATED) 12 mL/min/ (58.99-99999); GLUCOSE 85 mg/dL (70-99); PHOSPHORUS 3.7 mg/dL (2.5-4.9); POTASSIUM 4.7 MEQ/L (3.7-5.4); SODIUM 139 MEQ/L (136-147); UREA NITROGEN (BUN) 43 mg/dL (9-23)
[2017-04-04 11:11] VITALS: BP 117/58
[2017-04-04 15:05] VITALS: BP 119/69
[2017-04-04 19:57] VITALS: BP 182/85
[2017-04-05 00:14] VITALS: BP 170/81
[2017-04-05 03:49] VITALS: BP 139/79
[2017-04-05 07:28] LABS: ALBUMIN 2.5 G/DL (3.2-4.8); CHLORIDE 99 MEQ/L (99-109); CREATININE 7.2 MG/DL (0.6-1.3); GFR ESTIMATE (CALCULATED) 10 mL/min/ (58.99-99999); GLUCOSE 78 mg/dL (70-99); PHOSPHORUS 4.7 mg/dL (2.5-4.9); POTASSIUM 4.7 MEQ/L (3.7-5.4); SODIUM 139 MEQ/L (136-147); UREA NITROGEN (BUN) 49 mg/dL (9-23)
[2017-04-05 07:43] VITALS: BP 124/80
[2017-04-05 17:28] VITALS: BP 172/68
[2017-04-05 23:43] VITALS: BP 147/81
[2017-04-06 08:04] VITALS: BP 124/78
[2017-04-06 16:00] VITALS: BP 124/68
[2017-04-06 23:56] VITALS: BP 94/61
[2017-04-07 09:36] LABS: BASOPHIL (%) 0.6 % (0-1); BASOPHIL COUNT 0.1 K/uL (0-0.1); EOSINOPHIL (%) 1.8 % (0-5); EOSINOPHIL COUNT 0.2 K/uL (0-0.3); HEMATOCRIT 24.4 % (38.0-50.0); HEMOGLOBIN 7.4 G/DL (12.5-16.6); IMMATURE GRANULOCYTE (%) 0.8 % (0.0-0.7); LYMPHOCYTE (%) 12.3 % (15-42); LYMPHOCYTE COUNT 1.3 K/uL (1.0-2.8); MCHC 30.3 G/DL (30.0-36.0); MCV 92.4 FL (86-99); MONOCYTE (%) 7.9 % (3-12); MONOCYTE COUNT 0.8 K/uL (0-0.8); NEUTROPHIL (%) 76.6 % (45-76); NEUTROPHIL COUNT 8.1 K/uL (1.8-6.4); PLATELET COUNT 303 K/uL (156-360); RBC DIS.WIDTH-CV 16.7 % (11.8-14.6); RBC DIS.WIDTH-SD 56.4 % (39-53); RED BLOOD COUNT 2.64 M/uL (4.00-5.50); WHITE BLOOD COUNT 10.6 K/uL (4.1-10.2)
[2017-04-07 09:52] LABS: ALBUMIN 2.5 G/DL (3.2-4.8); CHLORIDE 100 MEQ/L (99-109); POTASSIUM 4.1 MEQ/L (3.7-5.4); SODIUM 140 MEQ/L (136-147)
[2017-04-07 10:12] LABS: GFR ESTIMATE (CALCULATED) 14 mL/min/ (58.99-99999); GLUCOSE 72 mg/dL (70-99); PHOSPHORUS 3.8 mg/dL (2.5-4.9); UREA NITROGEN (BUN) 29 mg/dL (9-23)
[2017-04-07 10:22] LABS: CREATININE 5.5 MG/DL (0.6-1.3)
[2017-04-07 14:52] VITALS: BP 102/50
[2017-04-07 15:48] VITALS: BP 106/58
[2017-04-07 21:06] VITALS: BP 168/75
[2017-04-07 23:55] VITALS: BP 112/64
[2017-04-08] VITALS (7 sets, daily range): BP systolic 105–134; BP diastolic 62–81
[2017-04-08 11:04] LABS: HEMATOCRIT 30.2 % (38.0-50.0); MCH 26.4 PG (29.0-34.0); MCHC 29.8 G/DL (30.0-36.0); MCV 88.6 FL (86-99); PLATELET COUNT 261 K/uL (156-360); RBC DIS.WIDTH-CV 19.9 % (11.8-14.6); RBC DIS.WIDTH-SD 63.5 % (39-53); WHITE BLOOD COUNT 11.7 K/uL (4.1-10.2)
[2017-04-08 12:12] LABS: RED BLOOD COUNT 3.41 M/uL (4.00-5.50)
[2017-04-09 07:40] VITALS: BP 120/62
[2017-04-09 07:41] VITALS: BP 112/64
[2017-04-09 10:20] LABS: CHLORIDE 101 MEQ/L (99-109); CREATININE 5.9 MG/DL (0.6-1.3); GFR ESTIMATE (CALCULATED) 13 mL/min/ (58.99-99999); GLUCOSE 93 mg/dL (70-99); MAGNESIUM 1.9 mg/dl (1.3-2.7); POTASSIUM 5.1 MEQ/L (3.7-5.4); SODIUM 140 MEQ/L (136-147); UREA NITROGEN (BUN) 29 mg/dL (9-23)
[2017-04-09 10:23] LABS: BASOPHIL (%) 0.5 % (0-1); BASOPHIL COUNT 0.1 K/uL (0-0.1); EOSINOPHIL (%) 1.8 % (0-5); EOSINOPHIL COUNT 0.2 K/uL (0-0.3); HEMATOCRIT 30.8 % (38.0-50.0); HEMOGLOBIN 9.1 G/DL (12.5-16.6); IMMATURE GRANULOCYTE (%) 0.9 % (0.0-0.7); LYMPHOCYTE (%) 9.9 % (15-42); LYMPHOCYTE COUNT 0.9 K/uL (1.0-2.8); MCH 26.7 PG (29.0-34.0); MCHC 29.5 G/DL (30.0-36.0); MCV 90.3 FL (86-99); MONOCYTE (%) 7.2 % (3-12); MONOCYTE COUNT 0.7 K/uL (0-0.8); NEUTROPHIL (%) 79.7 % (45-76); NEUTROPHIL COUNT 7.6 K/uL (1.8-6.4); PLATELET COUNT 241 K/uL (156-360); RBC DIS.WIDTH-CV 19.6 % (11.8-14.6); RBC DIS.WIDTH-SD 64.3 % (39-53); RED BLOOD COUNT 3.41 M/uL (4.00-5.50); WHITE BLOOD COUNT 9.5 K/uL (4.1-10.2)
[2017-04-09 16:08] VITALS: BP 120/62
[2017-04-09 22:44] VITALS: BP 130/65
[2017-04-09 23:42] VITALS: BP 133/65
[2017-04-10 06:34] VITALS: BP 114/61
[2017-04-10 07:44] VITALS: BP 120/62
[2017-04-10 08:46] LABS: HEMOGLOBIN 8.3 G/DL (12.5-16.6); MCH 26.6 PG (29.0-34.0); MCHC 29.6 G/DL (30.0-36.0); MCV 89.7 FL (86-99); PLATELET COUNT 243 K/uL (156-360); RBC DIS.WIDTH-CV 19.1 % (11.8-14.6); RBC DIS.WIDTH-SD 62.5 % (39-53); RED BLOOD COUNT 3.12 M/uL (4.00-5.50); WHITE BLOOD COUNT 8.5 K/uL (4.1-10.2)
[2017-04-10 09:00] LABS: ALBUMIN 2.4 G/DL (3.2-4.8); CHLORIDE 101 MEQ/L (99-109); POTASSIUM 4.8 MEQ/L (3.7-5.4); SODIUM 140 MEQ/L (136-147)
[2017-04-10 09:06] LABS: GFR ESTIMATE (CALCULATED) 10 mL/min/ (58.99-99999); GLUCOSE 109 mg/dL (70-99); PHOSPHORUS 5.4 mg/dL (2.5-4.9); UREA NITROGEN (BUN) 41 mg/dL (9-23)
[2017-04-10 16:11] VITALS: BP 112/60
[2017-04-10 23:59] VITALS: BP 124/58
[2017-04-11 07:45] VITALS: BP 125/61
[2017-04-11 16:03] VITALS: BP 128/74
[2017-04-11 21:50] VITALS: BP 184/85
[2017-04-11 23:50] VITALS: BP 118/52
[2017-04-12 03:44] VITALS: BP 100/56
[2017-04-12 08:17] LABS: BASOPHIL (%) 0.3 % (0-1); EOSINOPHIL (%) 1.6 % (0-5); EOSINOPHIL COUNT 0.1 K/uL (0-0.3); HEMATOCRIT 27.2 % (38.0-50.0); HEMOGLOBIN 8.1 G/DL (12.5-16.6); IMMATURE GRANULOCYTE (%) 0.7 % (0.0-0.7); LYMPHOCYTE (%) 16.8 % (15-42); LYMPHOCYTE COUNT 1.5 K/uL (1.0-2.8); MCH 26.4 PG (29.0-34.0); MCHC 29.8 G/DL (30.0-36.0); MCV 88.6 FL (86-99); MONOCYTE (%) 9.2 % (3-12); MONOCYTE COUNT 0.8 K/uL (0-0.8); NEUTROPHIL (%) 71.4 % (45-76); NEUTROPHIL COUNT 6.2 K/uL (1.8-6.4); PLATELET COUNT 196 K/uL (156-360); RED BLOOD COUNT 3.07 M/uL (4.00-5.50); WHITE BLOOD COUNT 8.7 K/uL (4.1-10.2)
[2017-04-12 08:33] LABS: CHLORIDE 99 MEQ/L (99-109); CREATININE 6.4 MG/DL (0.6-1.3); GFR ESTIMATE (CALCULATED) 11 mL/min/ (58.99-99999); MAGNESIUM 1.8 mg/dl (1.3-2.7); PHOSPHORUS 4.6 mg/dL (2.5-4.9); POTASSIUM 4.3 MEQ/L (3.7-5.4); SODIUM 136 MEQ/L (136-147); UREA NITROGEN (BUN) 33 mg/dL (9-23)
[2017-04-12 08:41] LABS: GLUCOSE 75 mg/dL (70-99)
[2017-04-12] MEDS ORDERED: CLONIDINE HCL0.1 MG PO (10:07)
[2017-04-12] MEDS ORDERED: LABETALOL HCL100 MG PO (10:08)
[2017-04-12] MEDS ORDERED: KEPPRA1000 MG PO (10:10)
[2017-04-12 11:56] VITALS: BP 122/67
[2017-04-12 15:10] VITALS: BP 123/70
== END 2017-04-12 15:50 | DRG 981 ==
LOC: EME 12:06 → EDOF 18:19 → 4EAST 18:19 → ENRESERV 18:29 → 4EAST 23:06 → ENRESERV 04-02 21:05 → 5SOUTH 04-02 22:05
PROVIDERS: Emergency Medicine; Hospitalist; Internal Medicine; Physician Assistant; Student in an Organized Health Care Education/Training Program
PROC: 5A1D70Z Performance of Urinary Filtration, Intermittent, Less than 6 Hours Per Day (ICD-10-PCS; 2017-03-27)
PROC: 30233N1 Transfusion of Nonautologous Red Blood Cells into Peripheral Vein, Percutaneous Approach (ICD-10-PCS; 2017-03-28)
PROC: 0JPT0XZ Removal of Tunneled Vascular Access Device from Trunk Subcutaneous Tissue and Fascia, Open Approach (ICD-10-PCS; 2017-04-01)
PROC: 02HV33Z Insertion of Infusion Device into Superior Vena Cava, Percutaneous Approach (ICD-10-PCS; 2017-04-05)
PROC: 03180KD Bypass Left Brachial Artery to Upper Arm Vein with Nonautologous Tissue Substitute, Open Approach (ICD-10-PCS; principal; 2017-04-08)
DX: G93.41 Metabolic encephalopathy (principal); I13.2 Hypertensive heart and chronic kidney disease with heart failure and with stage 5 chronic kidney disease, or end stage renal disease; N18.6 End stage renal disease; I50.32 Chronic diastolic (congestive) heart failure; I16.1 Hypertensive emergency; I27.20 Pulmonary hypertension, unspecified; E78.5 Hyperlipidemia, unspecified; G40.909 Epilepsy, unspecified, not intractable, without status epilepticus; D69.6 Thrombocytopenia, unspecified; J44.9 Chronic obstructive pulmonary disease, unspecified; D50.9 Iron deficiency anemia, unspecified; E83.39 Other disorders of phosphorus metabolism; E55.9 Vitamin D deficiency, unspecified; B96.89 Other specified bacterial agents as the cause of diseases classified elsewhere; E21.3 Hyperparathyroidism, unspecified; D72.829 Elevated white blood cell count, unspecified; G93.89 Other specified disorders of brain; I50.30 Unspecified diastolic (congestive) heart failure; E46 Unspecified protein-calorie malnutrition; I07.1 Rheumatic tricuspid insufficiency; F41.8 Other specified anxiety disorders; F32.9 Major depressive disorder, single episode, unspecified; R78.81 Bacteremia; I71.00 Dissection of unspecified site of aorta; N25.81 Secondary hyperparathyroidism of renal origin; D63.1 Anemia in chronic kidney disease; R64 Cachexia; G47.30 Sleep apnea, unspecified; I69.351 Hemiplegia and hemiparesis following cerebral infarction affecting right dominant side; R26.2 Difficulty in walking, not elsewhere classified; Z99.2 Dependence on renal dialysis; Z86.59 Personal history of other mental and behavioral disorders; I69.320 Aphasia following cerebral infarction; K21.9 Gastro-esophageal reflux disease without esophagitis; Z87.440 Personal history of urinary (tract) infections; Z86.19 Personal history of other infectious and parasitic diseases; Z91.19 Patient's noncompliance with other medical treatment and regimen; Z87.891 Personal history of nicotine dependence; Z68.1 Body mass index [BMI] 19.9 or less, adult
CPT/HCPCS: 70450; 70544; 70547; 70551; 71010; 74176; 80048; 80053; 80061; 80069; 80076; 80164; 80306 90; 81003; 82140; 82150; 82272; 82948; 83036; 83540; 83605; 83690; 83735; 84100; 84466; 84484; 85014; 85018; 85025; 85027; 85610; 85730; 86850; 86900; 86901; 86920; 87040; 87070; 87077; 87186; 87340; 87801; 92526 GN; 92610 GN; 93005; 94640; 94640 76; 95819; 97530 GO; 97530 GP; 99281; 99285; C1751; C1752; C1753; C1757; C1768; C9113; G0480; J0690; J0692; J0881; J1644; J1756; J1940; J1953; J2060; J2543; J2720; J3010; J7050; P9016

== ENCOUNTER 2017-04-22 06:56 | Inpatient (IN) | payer OTHER ==
[~2017-04-22] VITALS: Ht 172.7 cm; Wt 62.7 kg
[~2017-04-22 06:56] MED LIST changes: +KEPPRA1000 MG PO
[2017-04-22 07:57] LABS: HEMATOCRIT 27.5 % (38.0-50.0); HEMOGLOBIN 8.4 G/DL (12.5-16.6); MCH 27.7 PG (29.0-34.0); MCHC 30.5 G/DL (30.0-36.0); MCV 90.8 FL (86-99); PLATELET COUNT 193 K/uL (156-360); RBC DIS.WIDTH-CV 20.1 % (11.8-14.6); RBC DIS.WIDTH-SD 65.9 % (39-53); RED BLOOD COUNT 3.03 M/uL (4.00-5.50); WHITE BLOOD COUNT 8.2 K/uL (4.1-10.2)
[2017-04-22 08:01] LABS: BASOPHIL (%) 0.5 % (0-1); EOSINOPHIL (%) 1.5 % (0-5); EOSINOPHIL COUNT 0.1 K/uL (0-0.3); IMMATURE GRANULOCYTE (%) 0.5 % (0.0-0.7); LYMPHOCYTE (%) 14.7 % (15-42); LYMPHOCYTE COUNT 1.2 K/uL (1.0-2.8); MONOCYTE (%) 13.8 % (3-12); MONOCYTE COUNT 1.1 K/uL (0-0.8); NEUTROPHIL COUNT 5.7 K/uL (1.8-6.4)
[2017-04-22 08:23] LABS: TROP-I INTERPRETATION NEGATIVE; TROPONIN-I 0.02 ng/mL (0.0-0.30)
[2017-04-22 08:26] LABS: ALBUMIN 2.5 G/DL (3.2-4.8); ALKALINE PHOSPHATASE 40 IU/L (3-129); ALT (GPT) 6 IU/L (3-49); AST (GOT) 15 IU/L (2-34); CHLORIDE 101 MEQ/L (99-109); CREATINE KINASE 45 IU/L (1-294); GFR ESTIMATE (CALCULATED) 20 mL/min/ (58.99-99999); GLUCOSE 79 mg/dL (70-99); MAGNESIUM 1.8 mg/dl (1.3-2.7); POTASSIUM 3.8 MEQ/L (3.7-5.4); SODIUM 138 MEQ/L (136-147); TOTAL BILIRUBIN 0.5 MG/DL (0.0-1.0); TOTAL CK 45 IU/L (1-294); UREA NITROGEN (BUN) 48 mg/dL (9-23); VALPROIC ACID (DEPAKOTE) 21.9 MCG/ML (50-100)
[2017-04-22 08:30] LABS: CK-MB 1.8 ng/mL (0.0-4.9)
[2017-04-22 11:25] LABS: APPEARANCE SL.HAZY ((CLEAR)); BILIRUBIN NEGATIVE; BLOOD SMALL; COLOR YELLOW ((YELLOW)); GLUCOSE (STRIP) 50; KETONES NEGATIVE; LEUKOCYTES NEGATIVE; NITRITE NEGATIVE; PROTEIN (STRIP) >=500; SPECIFIC GRAVITY 1.014 (1.000-1.030); UROBILINOGEN 0.2 MG/DL (0.2-1.0)
[2017-04-22 11:31] LABS: BACTERIA RARE /HPF; EPITHELIAL CELLS 1+ /HPF; HYALINE CASTS 15-20 /LPF; MUCUS TRACE /LPF; RED BLOOD CELLS 15-20 /HPF (0-5); UCUL ADDED? YES
[2017-04-22] MEDS ORDERED: MELATONIN5 M1 PO (11:45)
[2017-04-22] MEDS ORDERED: NEPHRO-VITE RX1 EACH PO (11:46)
[2017-04-22 13:18] LABS: INTER. NORMALIZED RATIO 1.3
[2017-04-22 20:15] VITALS: BP 146/77
[2017-04-22 21:35] LABS: PTT 49.6 SEC (25-37)
[2017-04-22 21:44] LABS: INTER. NORMALIZED RATIO 1.3
[2017-04-23 00:05] VITALS: BP 122/56
[2017-04-23 03:03] LABS: HEMATOCRIT 24.9 % (38.0-50.0); HEMOGLOBIN 7.6 G/DL (12.5-16.6); MCH 27.4 PG (29.0-34.0); MCHC 30.5 G/DL (30.0-36.0); MCV 89.9 FL (86-99); PLATELET COUNT 169 K/uL (156-360); RED BLOOD COUNT 2.77 M/uL (4.00-5.50); WHITE BLOOD COUNT 8.3 K/uL (4.1-10.2)
[2017-04-23 03:29] LABS: CHLORIDE 104 mEq/L (99-109); POTASSIUM 4.1 mEq/L (3.7-5.4); SODIUM 137 mEq/L (136-147)
[2017-04-23 03:34] LABS: GLUCOSE 108 mg/dL (70-99)
[2017-04-23 03:35] LABS: CREATININE 4.2 mg/dL (0.6-1.3); GFR ESTIMATE (CALCULATED) 19 mL/min/ (58.99-99999)
[2017-04-23 03:36] LABS: UREA NITROGEN (BUN) 60 mg/dL (9-23)
[2017-04-23 04:00] VITALS: BP 117/58
[2017-04-23 08:39] VITALS: BP 124/61
[2017-04-23 11:38] VITALS: BP 121/60
[2017-04-23 18:19] VITALS: BP 126/60
[2017-04-23 19:15] VITALS: BP 145/67
[2017-04-24] VITALS (8 sets, daily range): BP systolic 111–140; BP diastolic 50–67
[2017-04-24 08:42] LABS: BASOPHIL (%) 0.4 % (0-1); EOSINOPHIL (%) 3.7 % (0-5); EOSINOPHIL COUNT 0.3 K/uL (0-0.3); HEMATOCRIT 22.9 % (38.0-50.0); HEMOGLOBIN 7.2 G/DL (12.5-16.6); IMMATURE GRANULOCYTE (%) 0.4 % (0.0-0.7); LYMPHOCYTE COUNT 1.3 K/uL (1.0-2.8); MCH 28.2 PG (29.0-34.0); MCHC 31.4 G/DL (30.0-36.0); MCV 89.8 FL (86-99); MONOCYTE (%) 13.9 % (3-12); NEUTROPHIL (%) 63.6 % (45-76); NEUTROPHIL COUNT 4.5 K/uL (1.8-6.4); PLATELET COUNT 171 K/uL (156-360); RBC DIS.WIDTH-SD 65.2 % (39-53); RED BLOOD COUNT 2.55 M/uL (4.00-5.50); WHITE BLOOD COUNT 7.1 K/uL (4.1-10.2)
[2017-04-24 09:03] LABS: CHLORIDE 99 MEQ/L (99-109); GLUCOSE 86 mg/dL (70-99); SODIUM 134 MEQ/L (136-147); UREA NITROGEN (BUN) 31 mg/dL (9-23)
[2017-04-24 09:07] LABS: CREATININE 2.8 MG/DL (0.6-1.3); GFR ESTIMATE (CALCULATED) 30 mL/min/ (58.99-99999)
[2017-04-25 03:57] VITALS: BP 151/78
[2017-04-25 04:17] LABS: HEMATOCRIT 26.4 % (38.0-50.0); HEMOGLOBIN 8.1 G/DL (12.5-16.6); MCH 27.4 PG (29.0-34.0); MCHC 30.7 G/DL (30.0-36.0); MCV 89.2 FL (86-99); PLATELET COUNT 169 K/uL (156-360); RBC DIS.WIDTH-CV 19.8 % (11.8-14.6); RED BLOOD COUNT 2.96 M/uL (4.00-5.50); WHITE BLOOD COUNT 6.9 K/uL (4.1-10.2)
[2017-04-25 05:31] LABS: CHLORIDE 104 mEq/L (99-109); POTASSIUM 4.2 mEq/L (3.7-5.4); SODIUM 140 mEq/L (136-147)
[2017-04-25 05:33] LABS: GLUCOSE 62 mg/dL (70-99)
[2017-04-25 05:37] LABS: CREATININE 3.2 mg/dL (0.6-1.3); GFR ESTIMATE (CALCULATED) 26 mL/min/ (58.99-99999); UREA NITROGEN (BUN) 33 mg/dL (9-23)
[2017-04-25 08:00] VITALS: BP 144/74
[2017-04-25 16:00] VITALS: BP 123/67
[2017-04-26 00:01] LABS: HEMATOCRIT 23.8 % (38.0-50.0); HEMOGLOBIN 7.3 G/DL (12.5-16.6); MCV 89.1 FL (86-99)
[2017-04-26 00:05] VITALS: BP 137/75
[2017-04-26 06:16] LABS: HEMATOCRIT 18.7 % (38.0-50.0); HEMOGLOBIN 5.6 G/DL (12.5-16.6); MCH 27.3 PG (29.0-34.0); MCHC 29.9 G/DL (30.0-36.0); MCV 91.2 FL (86-99); PLATELET COUNT 146 K/uL (156-360); RED BLOOD COUNT 2.05 M/uL (4.00-5.50); WHITE BLOOD COUNT 7.6 K/uL (4.1-10.2)
[2017-04-26 07:09] VITALS: BP 146/72
[2017-04-26 07:21] LABS: CHLORIDE 105 MEQ/L (99-109); CREATININE 3.4 MG/DL (0.6-1.3); GFR ESTIMATE (CALCULATED) 24 mL/min/ (58.99-99999); GLUCOSE 118 mg/dL (70-99); PHOSPHORUS 3.9 mg/dL (2.5-4.9); POTASSIUM 4.4 MEQ/L (3.7-5.4); SODIUM 137 MEQ/L (136-147); UREA NITROGEN (BUN) 44 mg/dL (9-23)
[2017-04-26 09:44] VITALS: BP 123/63
[2017-04-26 10:05] VITALS: BP 111/59
[2017-04-26 11:05] VITALS: BP 109/56
[2017-04-26 20:29] LABS: BASOPHIL (%) 0.3 % (0-1); EOSINOPHIL (%) 2.8 % (0-5); EOSINOPHIL COUNT 0.3 K/uL (0-0.3); HEMATOCRIT 31.1 % (38.0-50.0); IMMATURE GRANULOCYTE (%) 0.4 % (0.0-0.7); LYMPHOCYTE (%) 7.3 % (15-42); LYMPHOCYTE COUNT 0.7 K/uL (1.0-2.8); MCH 27.9 PG (29.0-34.0); MCHC 32.2 G/DL (30.0-36.0); MCV 86.9 FL (86-99); MONOCYTE (%) 8.3 % (3-12); MONOCYTE COUNT 0.7 K/uL (0-0.8); NEUTROPHIL (%) 80.9 % (45-76); NEUTROPHIL COUNT 7.2 K/uL (1.8-6.4); PLATELET COUNT 156 K/uL (156-360); RBC DIS.WIDTH-CV 16.9 % (11.8-14.6); RBC DIS.WIDTH-SD 52.6 % (39-53); RED BLOOD COUNT 3.58 M/uL (4.00-5.50); WHITE BLOOD COUNT 8.9 K/uL (4.1-10.2)
[2017-04-26 21:00] VITALS: BP 191/92
[2017-04-27 00:03] VITALS: BP 179/87
[2017-04-27 07:02] LABS: CHLORIDE 102 MEQ/L (99-109); GFR ESTIMATE (CALCULATED) 30 mL/min/ (58.99-99999); MAGNESIUM 1.7 mg/dl (1.3-2.7); POTASSIUM 4.4 MEQ/L (3.7-5.4); SODIUM 138 MEQ/L (136-147); UREA NITROGEN (BUN) 22 mg/dL (9-23)
[2017-04-27 07:04] VITALS: BP 152/78
[2017-04-27 07:05] LABS: CREATININE 2.8 MG/DL (0.6-1.3); GLUCOSE 73 mg/dL (70-99)
[2017-04-27 09:34] LABS: BASOPHIL COUNT 0.1 K/uL (0-0.1); EOSINOPHIL (%) 4.3 % (0-5); EOSINOPHIL COUNT 0.4 K/uL (0-0.3); HEMATOCRIT 29.2 % (38.0-50.0); HEMOGLOBIN 9.2 G/DL (12.5-16.6); IMMATURE GRANULOCYTE (%) 0.4 % (0.0-0.7); LYMPHOCYTE (%) 14.6 % (15-42); LYMPHOCYTE COUNT 1.3 K/uL (1.0-2.8); MCH 27.6 PG (29.0-34.0); MCHC 31.5 G/DL (30.0-36.0); MCV 87.7 FL (86-99); MONOCYTE (%) 10.5 % (3-12); NEUTROPHIL (%) 69.2 % (45-76); NEUTROPHIL COUNT 6.3 K/uL (1.8-6.4); PLATELET COUNT 161 K/uL (156-360); RBC DIS.WIDTH-SD 55.7 % (39-53); RED BLOOD COUNT 3.33 M/uL (4.00-5.50); WHITE BLOOD COUNT 9.2 K/uL (4.1-10.2)
[2017-04-27 12:47] LABS: HEPATITIS B SURFACE ANTIGEN Nonreactive
[2017-04-27 15:09] VITALS: BP 143/81
[2017-04-27 23:25] VITALS: BP 121/67
[2017-04-28 06:46] LABS: BASOPHIL (%) 0.7 % (0-1); BASOPHIL COUNT 0.1 K/uL (0-0.1); EOSINOPHIL (%) 4.6 % (0-5); EOSINOPHIL COUNT 0.4 K/uL (0-0.3); HEMATOCRIT 29.6 % (38.0-50.0); HEMOGLOBIN 9.3 G/DL (12.5-16.6); IMMATURE GRANULOCYTE (%) 0.7 % (0.0-0.7); LYMPHOCYTE (%) 13.8 % (15-42); LYMPHOCYTE COUNT 1.2 K/uL (1.0-2.8); MCH 28.1 PG (29.0-34.0); MCHC 31.4 G/DL (30.0-36.0); MCV 89.4 FL (86-99); MONOCYTE (%) 11.9 % (3-12); NEUTROPHIL (%) 68.3 % (45-76); PLATELET COUNT 164 K/uL (156-360); RBC DIS.WIDTH-CV 18.4 % (11.8-14.6); RBC DIS.WIDTH-SD 58.7 % (39-53); RED BLOOD COUNT 3.31 M/uL (4.00-5.50); WHITE BLOOD COUNT 8.7 K/uL (4.1-10.2)
[2017-04-28 07:09] LABS: CHLORIDE 100 MEQ/L (99-109); GFR ESTIMATE (CALCULATED) 22 mL/min/ (58.99-99999); GLUCOSE 86 mg/dL (70-99); POTASSIUM 4.2 MEQ/L (3.7-5.4); SODIUM 136 MEQ/L (136-147); UREA NITROGEN (BUN) 33 mg/dL (9-23)
[2017-04-28 07:19] LABS: CREATININE 3.6 MG/DL (0.6-1.3)
[2017-04-28 07:34] VITALS: BP 143/72
[2017-04-28 15:33] VITALS: BP 159/80
== END 2017-04-28 17:25 | DRG 252 ==
LOC: EME → EDBD 06:56 → 5SOUTH 11:23 → 4EAST 11:23 → EDOF 11:23 → ENRESERV 11:24 → CANRESERV 11:27 → ENRESERV 11:27 → CANRESERV 14:33 → ENRESERV 15:22 → EDOF 15:36 → 4EAST 15:36 → ENRESERV 16:58 → 4EAST 20:03 → ENRESERV 04-24 01:56 → 5SOUTH 04-24 02:55
PROVIDERS: Emergency Medicine; Hospitalist; Internal Medicine; Internal Medicine Nephrology; Physician Assistant
PROC: 5A1D70Z Performance of Urinary Filtration, Intermittent, Less than 6 Hours Per Day (ICD-10-PCS; principal; 2017-04-23)
PROC: 057A3DZ Dilation of Left Brachial Vein with Intraluminal Device, Percutaneous Approach (ICD-10-PCS; 2017-04-25)
PROC: 0JH63XZ Insertion of Tunneled Vascular Access Device into Chest Subcutaneous Tissue and Fascia, Percutaneous Approach (ICD-10-PCS; 2017-04-26)
PROC: 5A1D70Z Performance of Urinary Filtration, Intermittent, Less than 6 Hours Per Day (ICD-10-PCS; 2017-04-26)
PROC: 30233N1 Transfusion of Nonautologous Red Blood Cells into Peripheral Vein, Percutaneous Approach (ICD-10-PCS; 2017-04-26)
PROC: 02HV33Z Insertion of Infusion Device into Superior Vena Cava, Percutaneous Approach (ICD-10-PCS; 2017-04-26)
DX: T82.7XXA Infection and inflammatory reaction due to other cardiac and vascular devices, implants and grafts, initial encounter (principal); T82.898A Other specified complication of vascular prosthetic devices, implants and grafts, initial encounter; T82.858A Stenosis of other vascular prosthetic devices, implants and grafts, initial encounter; T82.41XA Breakdown (mechanical) of vascular dialysis catheter, initial encounter; I13.2 Hypertensive heart and chronic kidney disease with heart failure and with stage 5 chronic kidney disease, or end stage renal disease; N18.6 End stage renal disease; I50.32 Chronic diastolic (congestive) heart failure; I27.20 Pulmonary hypertension, unspecified; I82.612 Acute embolism and thrombosis of superficial veins of left upper extremity; J44.9 Chronic obstructive pulmonary disease, unspecified; L03.114 Cellulitis of left upper limb; I07.1 Rheumatic tricuspid insufficiency; Z99.2 Dependence on renal dialysis; Y83.2 Surgical operation with anastomosis, bypass or graft as the cause of abnormal reaction of the patient, or of later complication, without mention of misadventure at the time of the procedure; D62 Acute posthemorrhagic anemia; E46 Unspecified protein-calorie malnutrition; D63.8 Anemia in other chronic diseases classified elsewhere; G40.909 Epilepsy, unspecified, not intractable, without status epilepticus; G47.30 Sleep apnea, unspecified; Z87.891 Personal history of nicotine dependence; E78.5 Hyperlipidemia, unspecified; F03.90 Unspecified dementia, unspecified severity, without behavioral disturbance, psychotic disturbance, mood disturbance, and anxiety; Z91.19 Patient's noncompliance with other medical treatment and regimen; Z87.440 Personal history of urinary (tract) infections; K21.9 Gastro-esophageal reflux disease without esophagitis; N25.81 Secondary hyperparathyroidism of renal origin
CPT/HCPCS: 71045; 73200; 80048; 80053; 80069; 80164; 80202; 81003; 82272; 82550; 82553; 83605; 83735; 84484; 85014; 85018; 85025; 85027; 85610; 85730; 86850; 86900; 86901; 86920; 87040; 87086; 87340; 93005; 93971; 94640; 94640 76; 99202; 99281; 99285; C1725; C1769; C1788; C1874; C1894; J0360; J0690; J0881; J1644; J2250; J2543; J3010; J3370; J7050; P9016

== ENCOUNTER 2017-05-08 12:15 | Inpatient (IN) | payer OTHER ==
[~2017-05-08] VITALS: Ht 170.2 cm; Wt 59.7 kg
[~2017-05-08 12:15] MED LIST changes: +MELATONIN5 M1 PO; +NEPHRO-VITE RX1 EACH PO
[2017-05-08 13:25] LABS: BASOPHIL (%) 0.4 % (0-1); BASOPHIL COUNT 0.1 K/uL (0-0.1); EOSINOPHIL (%) 0.8 % (0-5); EOSINOPHIL COUNT 0.1 K/uL (0-0.3); HEMATOCRIT 25.9 % (38.0-50.0); HEMOGLOBIN 8.2 G/DL (12.5-16.6); IMMATURE GRANULOCYTE (%) 0.4 % (0.0-0.7); LYMPHOCYTE (%) 8.4 % (15-42); LYMPHOCYTE COUNT 1.1 K/uL (1.0-2.8); MCH 27.3 PG (29.0-34.0); MCHC 31.7 G/DL (30.0-36.0); MCV 86.3 FL (86-99); MONOCYTE (%) 8.7 % (3-12); MONOCYTE COUNT 1.2 K/uL (0-0.8); NEUTROPHIL (%) 81.3 % (45-76); NEUTROPHIL COUNT 10.8 K/uL (1.8-6.4); PLATELET COUNT 178 K/uL (156-360); RBC DIS.WIDTH-SD 56.6 % (39-53); WHITE BLOOD COUNT 13.3 K/uL (4.1-10.2)
[2017-05-08 13:31] LABS: INTER. NORMALIZED RATIO 1.3
[2017-05-08 13:34] LABS: ALBUMIN 2.4 g/dL (3.2-4.8); CHLORIDE 99 mEq/L (99-109); POTASSIUM 3.1 mEq/L (3.7-5.4); SODIUM 138 mEq/L (136-147)
[2017-05-08 13:36] LABS: GLUCOSE 80 mg/dL (70-99); TOTAL PROTEIN 8.1 g/dL (6.4-8.3)
[2017-05-08 13:38] LABS: TOTAL BILIRUBIN 0.5 mg/dL (0.0-1.0)
[2017-05-08 13:40] LABS: ALKALINE PHOSPHATASE 36 IU/L (3-129); CREATININE 1.7 mg/dL (0.6-1.3); GFR ESTIMATE (CALCULATED) 53 mL/min/ (58.99-99999)
[2017-05-08 13:41] LABS: UREA NITROGEN (BUN) 18 mg/dL (9-23)
[2017-05-08 13:42] LABS: AST (GOT) 25 IU/L (2-34); DIRECT BILIRUBIN 0.3 mg/dL (0.0-0.3)
[2017-05-08 13:43] LABS: ALT (GPT) 10 IU/L (3-49); LIPASE 45 U/L (1.0-51.0)
[2017-05-08 13:45] LABS: TROP-I INTERPRETATION NEGATIVE; TROPONIN-I 0.02 ng/mL (0.0-0.30)
[2017-05-08] MEDS ORDERED: NEPHRO-VITE RX1 EACH PO (15:18)
[2017-05-08] MEDS ORDERED: SYMBICORT60 INHALAT IH (15:24)
[2017-05-08 17:12] VITALS: BP 141/70
[2017-05-08 20:30] VITALS: BP 162/70
[2017-05-08 23:50] VITALS: BP 168/89
[2017-05-09 04:32] VITALS: BP 143/72
[2017-05-09 05:52] LABS: HEMOGLOBIN 7.9 G/DL (12.5-16.6); MCH 27.1 PG (29.0-34.0); MCHC 30.4 G/DL (30.0-36.0); PLATELET COUNT 153 K/uL (156-360); RBC DIS.WIDTH-CV 18.6 % (11.8-14.6); RBC DIS.WIDTH-SD 60.6 % (39-53); RED BLOOD COUNT 2.92 M/uL (4.00-5.50); WHITE BLOOD COUNT 22.9 K/uL (4.1-10.2)
[2017-05-09 06:28] LABS: CHLORIDE 99 MEQ/L (99-109); GFR ESTIMATE (CALCULATED) 27 mL/min/ (58.99-99999); GLUCOSE 80 mg/dL (70-99); PHOSPHORUS 3.4 mg/dL (2.5-4.9); POTASSIUM 3.5 MEQ/L (3.7-5.4); SODIUM 137 MEQ/L (136-147)
[2017-05-09 06:30] LABS: CREATININE 3.1 MG/DL (0.6-1.3); UREA NITROGEN (BUN) 33 mg/dL (9-23)
[2017-05-09 07:33] VITALS: BP 149/71
[2017-05-09 11:47] VITALS: BP 157/83
[2017-05-09 15:45] VITALS: BP 149/69
[2017-05-09 20:00] VITALS: BP 132/62
[2017-05-10 01:57] VITALS: BP 118/67
[2017-05-10 04:44] VITALS: BP 113/65
[2017-05-10 08:49] LABS: HEMATOCRIT 22.1 % (38.0-50.0); MCH 27.5 PG (29.0-34.0); MCHC 31.2 G/DL (30.0-36.0); PLATELET COUNT 163 K/uL (156-360); RBC DIS.WIDTH-CV 18.3 % (11.8-14.6); RED BLOOD COUNT 2.51 M/uL (4.00-5.50); WHITE BLOOD COUNT 18.7 K/uL (4.1-10.2)
[2017-05-10 08:51] LABS: HEMOGLOBIN 6.9 G/DL (12.5-16.6)
[2017-05-10 09:06] LABS: ALBUMIN 2.1 G/DL (3.2-4.8); CHLORIDE 94 MEQ/L (99-109); GFR ESTIMATE (CALCULATED) 19 mL/min/ (58.99-99999); PHOSPHORUS 3.3 mg/dL (2.5-4.9); POTASSIUM 3.1 MEQ/L (3.7-5.4); SODIUM 133 MEQ/L (136-147); UREA NITROGEN (BUN) 45 mg/dL (9-23); VANCOMYCIN, TROUGH 24.7 MCG/ML (10-20)
[2017-05-10 09:08] LABS: CREATININE 4.2 MG/DL (0.6-1.3); GLUCOSE 122 mg/dL (70-99)
[2017-05-10 11:09] LABS: HEMATOCRIT 24.7 % (38.0-50.0); HEMOGLOBIN 7.8 G/DL (12.5-16.6)
[2017-05-10 12:01] VITALS: BP 150/76
[2017-05-10 15:12] VITALS: BP 133/63
[2017-05-10 19:05] VITALS: BP 129/61
[2017-05-11] VITALS: BP 139/67
[2017-05-11 04:03] VITALS: BP 100/59
[2017-05-11 06:42] LABS: HEMATOCRIT 22.7 % (38.0-50.0); MCH 26.6 PG (29.0-34.0); MCHC 30.8 G/DL (30.0-36.0); MCV 86.3 FL (86-99); PLATELET COUNT 158 K/uL (156-360); RBC DIS.WIDTH-CV 18.2 % (11.8-14.6); RBC DIS.WIDTH-SD 57.8 % (39-53); RED BLOOD COUNT 2.63 M/uL (4.00-5.50); WHITE BLOOD COUNT 12.4 K/uL (4.1-10.2)
[2017-05-11 07:19] LABS: CHLORIDE 95 MEQ/L (99-109); CREATININE 3.6 MG/DL (0.6-1.3); GFR ESTIMATE (CALCULATED) 22 mL/min/ (58.99-99999); GLUCOSE 100 mg/dL (70-99); POTASSIUM 3.3 MEQ/L (3.7-5.4); SODIUM 134 MEQ/L (136-147); UREA NITROGEN (BUN) 24 mg/dL (9-23); VANCOMYCIN, TROUGH 16.2 MCG/ML (10-20)
[2017-05-11 07:25] VITALS: BP 125/59
[2017-05-11 15:08] VITALS: BP 139/68
[2017-05-11 22:19] VITALS: BP 152/78
[2017-05-11 23:20] VITALS: BP 148/72
[2017-05-12 03:33] VITALS: BP 130/70
[2017-05-12 06:15] LABS: HEMATOCRIT 27.7 % (38.0-50.0); HEMOGLOBIN 8.9 G/DL (12.5-16.6); MCH 27.5 PG (29.0-34.0); MCHC 32.1 G/DL (30.0-36.0); MCV 85.5 FL (86-99); PLATELET COUNT 157 K/uL (156-360); RBC DIS.WIDTH-CV 17.6 % (11.8-14.6); RBC DIS.WIDTH-SD 55.4 % (39-53); WHITE BLOOD COUNT 10.4 K/uL (4.1-10.2)
[2017-05-12 06:16] LABS: RED BLOOD COUNT 3.24 M/uL (4.00-5.50)
[2017-05-12 06:58] LABS: CHLORIDE 97 MEQ/L (99-109); CREATININE 5.1 MG/DL (0.6-1.3); GFR ESTIMATE (CALCULATED) 15 mL/min/ (58.99-99999); GLUCOSE 74 mg/dL (70-99); POTASSIUM 3.9 MEQ/L (3.7-5.4); SODIUM 135 MEQ/L (136-147); UREA NITROGEN (BUN) 30 mg/dL (9-23)
[2017-05-12 07:54] VITALS: BP 128/72
[2017-05-12 16:23] VITALS: BP 144/72
[2017-05-13 00:09] VITALS: BP 135/77
[2017-05-13 07:10] VITALS: BP 121/61
[2017-05-13 08:45] LABS: BASOPHIL (%) 0.7 % (0-1); BASOPHIL COUNT 0.1 K/uL (0-0.1); EOSINOPHIL (%) 1.1 % (0-5); EOSINOPHIL COUNT 0.1 K/uL (0-0.3); HEMATOCRIT 26.3 % (38.0-50.0); HEMOGLOBIN 8.3 G/DL (12.5-16.6); IMMATURE GRANULOCYTE (%) 0.4 % (0.0-0.7); LYMPHOCYTE (%) 8.4 % (15-42); LYMPHOCYTE COUNT 0.9 K/uL (1.0-2.8); MCH 26.8 PG (29.0-34.0); MCHC 31.6 G/DL (30.0-36.0); MCV 84.8 FL (86-99); MONOCYTE (%) 7.2 % (3-12); MONOCYTE COUNT 0.8 K/uL (0-0.8); NEUTROPHIL (%) 82.2 % (45-76); NEUTROPHIL COUNT 8.7 K/uL (1.8-6.4); RBC DIS.WIDTH-CV 17.9 % (11.8-14.6); RBC DIS.WIDTH-SD 55.8 % (39-53); WHITE BLOOD COUNT 10.5 K/uL (4.1-10.2)
[2017-05-13 08:57] LABS: PLATELET COUNT 210 K/uL (156-360)
[2017-05-13 15:07] VITALS: BP 166/77
[2017-05-14 00:04] VITALS: BP 151/75
[2017-05-14 07:15] VITALS: BP 140/68
[2017-05-14] MEDS ORDERED: DIVALPROEX SOD500 MG PO (10:04)
[2017-05-14] MEDS ORDERED: CIPRO250 MG PO (10:05)
[2017-05-14 15:06] VITALS: BP 135/66
== END 2017-05-14 16:56 | DRG 871 ==
LOC: EME 12:15 → EDOF 14:55 → 5SOUTH 14:55 → ENRESERV 15:00 → 5SOUTH 16:51
PROVIDERS: Emergency Medicine; Internal Medicine; Internal Medicine Nephrology; Physician Assistant
PROC: 5A1D70Z Performance of Urinary Filtration, Intermittent, Less than 6 Hours Per Day (ICD-10-PCS; principal; 2017-05-10)
PROC: 0R9K3ZX Drainage of Left Shoulder Joint, Percutaneous Approach, Diagnostic (ICD-10-PCS; 2017-05-10)
DX: A41.9 Sepsis, unspecified organism (principal); E43 Unspecified severe protein-calorie malnutrition; N18.6 End stage renal disease; I13.2 Hypertensive heart and chronic kidney disease with heart failure and with stage 5 chronic kidney disease, or end stage renal disease; J98.11 Atelectasis; I50.32 Chronic diastolic (congestive) heart failure; J90 Pleural effusion, not elsewhere classified; N02.2 Recurrent and persistent hematuria with diffuse membranous glomerulonephritis; I82.622 Acute embolism and thrombosis of deep veins of left upper extremity; I87.1 Compression of vein; N25.81 Secondary hyperparathyroidism of renal origin; E83.39 Other disorders of phosphorus metabolism; D69.6 Thrombocytopenia, unspecified; D50.8 Other iron deficiency anemias; I36.1 Nonrheumatic tricuspid (valve) insufficiency; L02.414 Cutaneous abscess of left upper limb; K21.9 Gastro-esophageal reflux disease without esophagitis; J44.9 Chronic obstructive pulmonary disease, unspecified; I27.20 Pulmonary hypertension, unspecified; D63.1 Anemia in chronic kidney disease; E78.5 Hyperlipidemia, unspecified; E87.6 Hypokalemia; G40.409 Other generalized epilepsy and epileptic syndromes, not intractable, without status epilepticus; Z99.2 Dependence on renal dialysis; Z91.19 Patient's noncompliance with other medical treatment and regimen; Z87.891 Personal history of nicotine dependence; Z86.79 Personal history of other diseases of the circulatory system; Z87.440 Personal history of urinary (tract) infections
CPT/HCPCS: 71046; 73218; 75989; 80048; 80053; 80069; 80164; 80202; 81003; 82248; 82948; 83605; 83690; 84100; 84484; 85014; 85018; 85025; 85027; 85610; 85730; 86850; 86900; 86901; 86920; 87040; 87070; 87075; 87205; 92610 GN; 93971; 94640; 94640 76; 94799; 95819; 99281; 99285; J0881; J1644; J1940; J1953; J2060; J2543; J3370; J7030; J7050; P9016

== ENCOUNTER 2017-05-29 09:46 | Observation (INO) | payer OTHER ==
[~2017-05-29] VITALS: Ht 170.2 cm; Wt 53.6 kg
[~2017-05-29 09:46] MED LIST changes: +CIPRO250 MG PO
[2017-05-29 10:27] LABS: HEMATOCRIT 25.2 % (38.0-50.0); HEMOGLOBIN 8.2 G/DL (12.5-16.6); MCH 27.1 PG (29.0-34.0); MCHC 32.5 G/DL (30.0-36.0); MCV 83.2 FL (86-99); PLATELET COUNT 167 K/uL (156-360); RBC DIS.WIDTH-CV 19.9 % (11.8-14.6); RBC DIS.WIDTH-SD 59.5 % (39-53); RED BLOOD COUNT 3.03 M/uL (4.00-5.50); WHITE BLOOD COUNT 9.4 K/uL (4.1-10.2)
[2017-05-29 10:37] LABS: CHLORIDE 96 mEq/L (99-109); POTASSIUM 2.7 mEq/L (3.7-5.4); SODIUM 138 mEq/L (136-147)
[2017-05-29 10:39] LABS: GLUCOSE 92 mg/dL (70-99)
[2017-05-29 10:42] LABS: CREATININE 3.5 mg/dL (0.6-1.3); GFR ESTIMATE (CALCULATED) 23 mL/min/ (58.99-99999)
[2017-05-29 10:43] LABS: UREA NITROGEN (BUN) 16 mg/dL (9-23)
[2017-05-29 10:48] LABS: TROP-I INTERPRETATION NEGATIVE; TROPONIN-I 0.04 ng/mL (0.0-0.30)
[2017-05-29] MEDS ORDERED: CIPRO250 MG PO (17:31)
[2017-05-29] MEDS ORDERED: OMEPRAZOLE20 MG PO (17:32)
[2017-05-29] MEDS ORDERED: TAMIFLU75 MG PO (17:33)
[2017-05-29] MEDS ORDERED: LABETALOL HCL100 MG PO (17:34)
[2017-05-29] MEDS ORDERED: CATAPRES0.1 MG PO (17:36)
[2017-05-29 18:38] LABS: TROP-I INTERPRETATION NEGATIVE; TROPONIN-I 0.04 ng/mL (0.0-0.30)
[2017-05-29 20:11] VITALS: BP 174/54
[2017-05-30 00:30] VITALS: BP 171/81
[2017-05-30 02:32] LABS: TROP-I INTERPRETATION NEGATIVE; TROPONIN-I 0.03 ng/mL (0.0-0.30)
[2017-05-30 04:08] VITALS: BP 135/67
[2017-05-30 06:31] LABS: CHLORIDE 98 MEQ/L (99-109); CREATININE 4.7 MG/DL (0.6-1.3); GFR ESTIMATE (CALCULATED) 16 mL/min/ (58.99-99999); GLUCOSE 70 mg/dL (70-99); POTASSIUM 3.4 MEQ/L (3.7-5.4); SODIUM 138 MEQ/L (136-147); UREA NITROGEN (BUN) 22 mg/dL (9-23)
[2017-05-30 12:53] VITALS: BP 141/68
== END 2017-05-30 13:59 ==
LOC: EME 09:46 → 5WEST 16:16 → EDOF 16:16 → ENRESERV 16:30 → CANRESERV 16:30 → ENRESERV 19:47 → 5WEST 19:48
PROVIDERS: Emergency Medicine; Internal Medicine
DX: R07.9 Chest pain, unspecified (principal); E87.6 Hypokalemia; I13.2 Hypertensive heart and chronic kidney disease with heart failure and with stage 5 chronic kidney disease, or end stage renal disease; N18.6 End stage renal disease; I50.32 Chronic diastolic (congestive) heart failure; Z99.2 Dependence on renal dialysis; J44.9 Chronic obstructive pulmonary disease, unspecified; I27.20 Pulmonary hypertension, unspecified; I74.2 Embolism and thrombosis of arteries of the upper extremities; K80.20 Calculus of gallbladder without cholecystitis without obstruction; Z87.891 Personal history of nicotine dependence
CPT/HCPCS: 70450; 71045; 71250; 74176; 78580; 80048; 83605; 84484; 85027; 85379; 87641; 93005; 94640; 94640 76; 99281; 99285; A9540; G0378; J1644

== ENCOUNTER 2017-06-11 20:53 | Observation (INO) | payer OTHER ==
[~2017-06-11] VITALS: Ht 172.7 cm; Wt 50.4 kg
[~2017-06-11 20:53] MED LIST changes: +CATAPRES0.1 MG PO; +OMEPRAZOLE20 MG PO; +TAMIFLU75 MG PO
[2017-06-11 22:43] LABS: BASOPHIL (%) 0.7 % (0-1); BASOPHIL COUNT 0.1 K/uL (0-0.1); EOSINOPHIL (%) 1.6 % (0-5); EOSINOPHIL COUNT 0.1 K/uL (0-0.3); HEMATOCRIT 18.7 % (38.0-50.0); HEMOGLOBIN 5.5 G/DL (12.5-16.6); IMMATURE GRANULOCYTE (%) 0.6 % (0.0-0.7); LYMPHOCYTE (%) 24.7 % (15-42); LYMPHOCYTE COUNT 1.7 K/uL (1.0-2.8); MCH 25.8 PG (29.0-34.0); MCHC 29.4 G/DL (30.0-36.0); MCV 87.8 FL (86-99); MONOCYTE (%) 8.9 % (3-12); MONOCYTE COUNT 0.6 K/uL (0-0.8); NEUTROPHIL (%) 63.5 % (45-76); NEUTROPHIL COUNT 4.5 K/uL (1.8-6.4); PLATELET COUNT 200 K/uL (156-360); RBC DIS.WIDTH-SD 66.5 % (39-53); RED BLOOD COUNT 2.13 M/uL (4.00-5.50)
[2017-06-11 22:44] LABS: INTER. NORMALIZED RATIO 1.3
[2017-06-11 22:47] LABS: CHLORIDE 97 mEq/L (99-109); POTASSIUM 3.9 mEq/L (3.7-5.4); PTT 31.5 SEC (25-37); SODIUM 138 mEq/L (136-147)
[2017-06-11 22:49] LABS: GLUCOSE 67 mg/dL (70-99)
[2017-06-11 22:52] LABS: CREATININE 4.1 mg/dL (0.6-1.3); GFR ESTIMATE (CALCULATED) 19 mL/min/ (58.99-99999)
[2017-06-11 22:53] LABS: UREA NITROGEN (BUN) 16 mg/dL (9-23)
[2017-06-11 23:08] LABS: TROP-I INTERPRETATION NEGATIVE; TROPONIN-I < 0.01 ng/mL (0.0-0.30)
[2017-06-12] VITALS (12 sets, daily range): BP systolic 157–196; BP diastolic 75–95
[2017-06-12 16:28] LABS: CHLORIDE 97 MEQ/L (99-109); POTASSIUM 3.7 MEQ/L (3.7-5.4); SODIUM 137 MEQ/L (136-147)
[2017-06-12 16:33] LABS: CREATININE 4.6 MG/DL (0.6-1.3); GFR ESTIMATE (CALCULATED) 17 mL/min/ (58.99-99999); GLUCOSE 68 mg/dL (70-99); UREA NITROGEN (BUN) 20 mg/dL (9-23)
[2017-06-12 16:48] LABS: BASOPHIL (%) 0.6 % (0-1); EOSINOPHIL (%) 1.7 % (0-5); EOSINOPHIL COUNT 0.1 K/uL (0-0.3); HEMATOCRIT 21.8 % (38.0-50.0); HEMOGLOBIN 6.8 G/DL (12.5-16.6); IMMATURE GRANULOCYTE (%) 0.7 % (0.0-0.7); LYMPHOCYTE COUNT 1.4 K/uL (1.0-2.8); MCH 27.5 PG (29.0-34.0); MCHC 31.2 G/DL (30.0-36.0); MCV 88.3 FL (86-99); MONOCYTE (%) 8.3 % (3-12); MONOCYTE COUNT 0.6 K/uL (0-0.8); NEUTROPHIL (%) 68.7 % (45-76); NEUTROPHIL COUNT 4.8 K/uL (1.8-6.4); PLATELET COUNT 167 K/uL (156-360); RBC DIS.WIDTH-CV 17.9 % (11.8-14.6); RBC DIS.WIDTH-SD 56.2 % (39-53); RED BLOOD COUNT 2.47 M/uL (4.00-5.50)
[2017-06-13 03:14] VITALS: BP 190/92
[2017-06-13 04:16] VITALS: BP 172/82
[2017-06-13 06:05] LABS: HEMATOCRIT 26.1 % (38.0-50.0); HEMOGLOBIN 8.4 G/DL (12.5-16.6); MCH 28.2 PG (29.0-34.0); MCHC 32.2 G/DL (30.0-36.0); MCV 87.6 FL (86-99); PLATELET COUNT 138 K/uL (156-360); RBC DIS.WIDTH-CV 17.1 % (11.8-14.6); RBC DIS.WIDTH-SD 53.8 % (39-53); WHITE BLOOD COUNT 6.3 K/uL (4.1-10.2)
[2017-06-13 06:14] LABS: RED BLOOD COUNT 2.98 M/uL (4.00-5.50)
[2017-06-13 06:32] LABS: ALBUMIN 1.7 G/DL (3.2-4.8); CHLORIDE 102 MEQ/L (99-109); GFR ESTIMATE (CALCULATED) 36 mL/min/ (58.99-99999); GLUCOSE 70 mg/dL (70-99); PHOSPHORUS 2.4 mg/dL (2.5-4.9); POTASSIUM 3.9 MEQ/L (3.7-5.4); SODIUM 136 MEQ/L (136-147); UREA NITROGEN (BUN) 8 mg/dL (9-23)
[2017-06-13 06:40] LABS: CREATININE 2.4 MG/DL (0.6-1.3)
[2017-06-13] MEDS ORDERED: LONITEN2.5 MG PO (11:37)
[2017-06-13] MEDS ORDERED: LABETALOL HCL200 MG PO (11:37)
[2017-06-13 11:57] VITALS: BP 167/81
[2017-06-13 15:57] VITALS: BP 159/83
[2017-06-14 11:57] LABS: HEPATITIS B SURFACE ANTIGEN Nonreactive
[2017-06-14 12:05] LABS: HEPATITIS B SURFACE ANTIBODY REACTIVE
== END 2017-06-13 18:33 | disposition home or self-care (01) ==
LOC: EME 20:53 → EDOF 06-12 → 5WEST 06-12 → EDOF 06-12 → ENRESERV 06-12 00:01 → 5WEST 06-12 01:55 → ENPENDDIS 06-13 → 5WEST 06-13 18:33
PROVIDERS: Emergency Medicine; Hospitalist; Internal Medicine Nephrology
PROC: 5A1D70Z Performance of Urinary Filtration, Intermittent, Less than 6 Hours Per Day (ICD-10-PCS; principal; 2017-06-12)
PROC: 30233N1 Transfusion of Nonautologous Red Blood Cells into Peripheral Vein, Percutaneous Approach (ICD-10-PCS; 2017-06-12)
DX: I12.0 Hypertensive chronic kidney disease with stage 5 chronic kidney disease or end stage renal disease (principal); N18.6 End stage renal disease; D63.1 Anemia in chronic kidney disease; D59.4 Other nonautoimmune hemolytic anemias; T46.5X6A Underdosing of other antihypertensive drugs, initial encounter; Z91.128 Patient's intentional underdosing of medication regimen for other reason; F32.9 Major depressive disorder, single episode, unspecified; J44.9 Chronic obstructive pulmonary disease, unspecified; K21.9 Gastro-esophageal reflux disease without esophagitis; G40.909 Epilepsy, unspecified, not intractable, without status epilepticus; I71.02 Dissection of abdominal aorta; M19.90 Unspecified osteoarthritis, unspecified site; Z90.49 Acquired absence of other specified parts of digestive tract; Z87.891 Personal history of nicotine dependence; Z79.82 Long term (current) use of aspirin; Z79.891 Long term (current) use of opiate analgesic; Z91.041 Radiographic dye allergy status; Z99.2 Dependence on renal dialysis
CPT/HCPCS: 80048; 80069; 82272; 84484; 85025; 85027; 85610; 85730; 86706; 86850; 86900; 86901; 86920; 87340; 93005; 94640; 94640 76; 99202; 99281; 99285; G0378; G8978 GP CM; G8979 GP CK; G8980 GP CM; G8987 GO CM; G8988 GO CL; J1644; J1756; P9016

== ENCOUNTER 2017-06-30 11:59 | Emergency (ER) | payer OTHER ==
[~2017-06-30] VITALS: Ht 170.2 cm; Wt 52.5 kg
[2017-06-30 13:42] LABS: INTER. NORMALIZED RATIO 1.2
[2017-06-30 13:44] LABS: CHLORIDE 95 mEq/L (99-109); POTASSIUM 3.4 mEq/L (3.7-5.4); PTT 36.1 SEC (25-37); SODIUM 134 mEq/L (136-147)
[2017-06-30 13:45] LABS: GLUCOSE 66 mg/dL (70-99)
[2017-06-30 13:49] LABS: CREATININE 3.8 mg/dL (0.6-1.3); GFR ESTIMATE (CALCULATED) 21 mL/min/ (58.99-99999)
[2017-06-30 13:50] LABS: BASOPHIL (%) 0.5 % (0-1); EOSINOPHIL (%) 0.8 % (0-5); HEMATOCRIT 28.3 % (38.0-50.0); HEMOGLOBIN 8.8 G/DL (12.5-16.6); IMMATURE GRANULOCYTE (%) 0.3 % (0.0-0.7); LYMPHOCYTE (%) 21.6 % (15-42); LYMPHOCYTE COUNT 0.8 K/uL (1.0-2.8); MCH 29.2 PG (29.0-34.0); MCHC 31.1 G/DL (30.0-36.0); MONOCYTE (%) 8.2 % (3-12); MONOCYTE COUNT 0.3 K/uL (0-0.8); NEUTROPHIL (%) 68.6 % (45-76); NEUTROPHIL COUNT 2.6 K/uL (1.8-6.4); RBC DIS.WIDTH-CV 20.3 % (11.8-14.6); RBC DIS.WIDTH-SD 71.1 % (39-53); RED BLOOD COUNT 3.01 M/uL (4.00-5.50); UREA NITROGEN (BUN) 34 mg/dL (9-23); WHITE BLOOD COUNT 3.8 K/uL (4.1-10.2)
[2017-06-30 13:57] LABS: TROP-I INTERPRETATION NEGATIVE; TROPONIN-I 0.12 ng/mL (0.0-0.30)
[2017-06-30 14:32] LABS: IMM.PLATELET FRACTION 3.7 (1-7); PLAT.SUFFICIENCY DECREASED
[2017-06-30 14:34] LABS: PLATELET COUNT 43 K/uL (156-360)
[2017-06-30 16:00] VITALS: BP 121/69
== END 2017-06-30 17:18 | disposition home or self-care (01) ==
LOC: EME 11:59
PROVIDERS: Emergency Medicine
DX: J44.0 Chronic obstructive pulmonary disease with (acute) lower respiratory infection (principal); N18.9 Chronic kidney disease, unspecified; D64.9 Anemia, unspecified; Z99.2 Dependence on renal dialysis; F03.90 Unspecified dementia, unspecified severity, without behavioral disturbance, psychotic disturbance, mood disturbance, and anxiety; K21.9 Gastro-esophageal reflux disease without esophagitis; Z86.718 Personal history of other venous thrombosis and embolism; R56.9 Unspecified convulsions; Z87.440 Personal history of urinary (tract) infections; Z79.82 Long term (current) use of aspirin; Z87.891 Personal history of nicotine dependence
CPT/HCPCS: 71045; 71250; 80048; 84484; 85025; 85610; 85730; 93005; 99281; 99284

== ENCOUNTER 2017-07-01 21:52 | Inpatient (IN) | payer OTHER ==
[~2017-07-01] VITALS: Ht 170.2 cm; Wt 50.1 kg
[2017-07-02 01:07] LABS: INTER. NORMALIZED RATIO 1.2
[2017-07-02 01:10] LABS: PTT 36.4 SEC (25-37)
[2017-07-02 01:37] LABS: HEMATOCRIT 21.5 % (38.0-50.0); HEMOGLOBIN 7.1 G/DL (12.5-16.6); MCH 30.5 PG (29.0-34.0); MCV 92.3 FL (86-99); RBC DIS.WIDTH-SD 70.4 % (39-53); WHITE BLOOD COUNT 5.3 K/uL (4.1-10.2)
[2017-07-02 01:39] LABS: ALBUMIN 1.7 G/DL (3.2-4.8); ALKALINE PHOSPHATASE 43 IU/L (3-129); ALT (GPT) 4 IU/L (3-49); AST (GOT) 15 IU/L (2-34); CHLORIDE 98 MEQ/L (99-109); CREATININE 2.5 MG/DL (0.6-1.3); GFR ESTIMATE (CALCULATED) 34 mL/min/ (58.99-99999); GLUCOSE 105 mg/dL (70-99); POTASSIUM 2.7 MEQ/L (3.7-5.4); SODIUM 139 MEQ/L (136-147); TOTAL BILIRUBIN 0.4 MG/DL (0.0-1.0); TOTAL PROTEIN 6.9 G/DL (6.4-8.3); UREA NITROGEN (BUN) 18 mg/dL (9-23)
[2017-07-02 01:57] LABS: LIPASE 9 U/L (1.0-51.0)
[2017-07-02 02:32] LABS: RED BLOOD COUNT 2.33 M/uL (4.00-5.50)
[2017-07-02 02:46] LABS: IMM.PLATELET FRACTION 3.9 (1-7); PLAT.SUFFICIENCY DECREASED; PLATELET COUNT 36 K/uL (156-360)
[2017-07-02 04:27] LABS: MAGNESIUM 1.7 mg/dl (1.3-2.7)
[2017-07-02 05:40] VITALS: BP 141/68
[2017-07-02 06:30] LABS: HEMATOCRIT 21.9 % (38.0-50.0); MCH 29.8 PG (29.0-34.0); MCV 93.2 FL (86-99); RBC DIS.WIDTH-CV 21.1 % (11.8-14.6); RBC DIS.WIDTH-SD 70.6 % (39-53); RED BLOOD COUNT 2.35 M/uL (4.00-5.50); WHITE BLOOD COUNT 4.7 K/uL (4.1-10.2)
[2017-07-02 06:38] LABS: CHLORIDE 101 MEQ/L (99-109); CREATININE 2.4 MG/DL (0.6-1.3); GFR ESTIMATE (CALCULATED) 36 mL/min/ (58.99-99999); GLUCOSE 86 mg/dL (70-99); POTASSIUM 3.1 MEQ/L (3.7-5.4); SODIUM 139 MEQ/L (136-147); UREA NITROGEN (BUN) 18 mg/dL (9-23)
[2017-07-02 07:35] LABS: IMM.PLATELET FRACTION 5.7 (1-7)
[2017-07-02 07:38] VITALS: BP 130/71
[2017-07-02 07:40] LABS: PLAT.SUFFICIENCY VERY DECREASED
[2017-07-02 08:00] LABS: PLATELET COUNT 24 K/uL (156-360)
[2017-07-02 12:10] VITALS: BP 124/58
[2017-07-02 13:10] LABS: HEMATOCRIT 21.1 % (38.0-50.0); MCH 30.3 PG (29.0-34.0); MCHC 31.8 G/DL (30.0-36.0); MCV 95.5 FL (86-99); RBC DIS.WIDTH-CV 21.2 % (11.8-14.6); RBC DIS.WIDTH-SD 72.4 % (39-53); RED BLOOD COUNT 2.21 M/uL (4.00-5.50); WHITE BLOOD COUNT 4.6 K/uL (4.1-10.2)
[2017-07-02 13:18] LABS: HEMOGLOBIN 6.7 G/DL (12.5-16.6)
[2017-07-02 13:24] LABS: IMM.PLATELET FRACTION 3.3 (1-7); PLATELET COUNT 31 K/uL (156-360)
[2017-07-02 13:50] LABS: FOLIC ACID (FOLATE) 2.8 NG/ML (5.0-22.0); HEPATITIS B SURFACE ANTIGEN Nonreactive
[2017-07-02 14:17] LABS: ANISOCYTOSIS 1+; BURR CELLS 1+; MICROCYTOSIS 1+; OVALOCYTES 1+; PLAT.SUFFICIENCY DECREASED; POIKILOCYTOSIS 1+; SCHISTOCYTES 1+; TEAR DROP CELLS 1+
[2017-07-02 15:28] LABS: CHLORIDE 98 MEQ/L (99-109); CREATININE 2.6 MG/DL (0.6-1.3); FERRITIN > 1500 NG/ML (22-322); GFR ESTIMATE (CALCULATED) 32 mL/min/ (58.99-99999); GLUCOSE 91 mg/dL (70-99); IRON 17 MCG/DL (35-150); POTASSIUM 3.2 MEQ/L (3.7-5.4); SODIUM 137 MEQ/L (136-147); TRANSFERRIN (TIBC) < 75 mg/dL (215-380); TRANSFERRIN SATUR. 20 % (20-55); UREA NITROGEN (BUN) 19 mg/dL (9-23)
[2017-07-02 15:51] LABS: ABS NEUTROPHIL COUNT 3.5; EOSINOPHIL ABS CT 0
[2017-07-02 16:26] VITALS: BP 126/60
[2017-07-02 18:17] LABS: HEMATOCRIT 22.1 % (38.0-50.0); HEMOGLOBIN 7.1 G/DL (12.5-16.6); MCH 30.9 PG (29.0-34.0); MCHC 32.1 G/DL (30.0-36.0); MCV 96.1 FL (86-99); RBC DIS.WIDTH-CV 21.3 % (11.8-14.6); RBC DIS.WIDTH-SD 73.6 % (39-53)
[2017-07-02 18:35] LABS: IMM.PLATELET FRACTION 2.9 (1-7); PLAT.SUFFICIENCY VERY DECREASED; PLATELET COUNT 32 K/uL (156-360)
[2017-07-02 20:00] VITALS: BP 130/63
[2017-07-03] VITALS (15 sets, daily range): BP systolic 95–157; BP diastolic 50–83
[2017-07-03 02:36] LABS: D-DIMER LATEX POSITIVE
[2017-07-03 02:49] LABS: SCHISTOCYTES RARE
[2017-07-03 06:26] LABS: INTER. NORMALIZED RATIO 1.1
[2017-07-03 06:29] LABS: PTT 34.7 SEC (25-37)
[2017-07-03 06:42] LABS: BASOPHIL (%) 0.2 % (0-1); EOSINOPHIL (%) 0.7 % (0-5); HEMATOCRIT 25.4 % (38.0-50.0); HEMOGLOBIN 8.3 G/DL (12.5-16.6); IMMATURE GRANULOCYTE (%) 0.2 % (0.0-0.7); LYMPHOCYTE (%) 25.7 % (15-42); LYMPHOCYTE COUNT 1.1 K/uL (1.0-2.8); MCH 30.4 PG (29.0-34.0); MCHC 32.7 G/DL (30.0-36.0); MONOCYTE (%) 12.6 % (3-12); MONOCYTE COUNT 0.5 K/uL (0-0.8); NEUTROPHIL (%) 60.6 % (45-76); NEUTROPHIL COUNT 2.6 K/uL (1.8-6.4); NRBC (%) 0.7 /100 WBC (0-0); RBC DIS.WIDTH-CV 19.9 % (11.8-14.6); RBC DIS.WIDTH-SD 65.9 % (39-53); RED BLOOD COUNT 2.73 M/uL (4.00-5.50); WHITE BLOOD COUNT 4.2 K/uL (4.1-10.2)
[2017-07-03 06:48] LABS: CHLORIDE 100 MEQ/L (99-109); GLUCOSE 87 mg/dL (70-99); LACTATE DEHYDROGENASE 152 IU/L (20-246); POTASSIUM 3.8 MEQ/L (3.7-5.4); SODIUM 137 MEQ/L (136-147); UREA NITROGEN (BUN) 22 mg/dL (9-23)
[2017-07-03 06:49] LABS: CREATININE 3.1 MG/DL (0.6-1.3); GFR ESTIMATE (CALCULATED) 26 mL/min/ (58.99-99999); MAGNESIUM 2.1 mg/dl (1.3-2.7); PHOSPHORUS 1.5 mg/dL (2.5-4.9)
[2017-07-03 07:03] LABS: IMM.PLATELET FRACTION 2.8 (1-7); PLAT.SUFFICIENCY VERY DECREASED; PLATELET COUNT 39 K/uL (156-360)
[2017-07-03 07:58] LABS: FIBRINOGEN 338 mg/dL (150-450)
[2017-07-03 09:18] LABS: D-DIMER LATEX POSITIVE
[2017-07-03 10:02] LABS: SCHISTOCYTES RARE
[2017-07-04] VITALS (7 sets, daily range): BP systolic 104–158; BP diastolic 52–87
[2017-07-04 08:33] LABS: BASOPHIL (%) 0.6 % (0-1); EOSINOPHIL (%) 1.4 % (0-5); EOSINOPHIL COUNT 0.1 K/uL (0-0.3); HEMATOCRIT 27.3 % (38.0-50.0); HEMOGLOBIN 8.9 G/DL (12.5-16.6); IMMATURE GRANULOCYTE (%) 0.3 % (0.0-0.7); LYMPHOCYTE (%) 25.6 % (15-42); LYMPHOCYTE COUNT 0.9 K/uL (1.0-2.8); MCH 30.3 PG (29.0-34.0); MCHC 32.6 G/DL (30.0-36.0); MCV 92.9 FL (86-99); MONOCYTE (%) 11.7 % (3-12); MONOCYTE COUNT 0.4 K/uL (0-0.8); NEUTROPHIL (%) 60.4 % (45-76); NEUTROPHIL COUNT 2.2 K/uL (1.8-6.4); RBC DIS.WIDTH-CV 20.3 % (11.8-14.6); RBC DIS.WIDTH-SD 66.2 % (39-53); RED BLOOD COUNT 2.94 M/uL (4.00-5.50); WHITE BLOOD COUNT 3.6 K/uL (4.1-10.2)
[2017-07-04 08:37] LABS: PLATELET COUNT 63 K/uL (156-360)
[2017-07-04 09:06] LABS: ALBUMIN 1.7 G/DL (3.2-4.8); ALKALINE PHOSPHATASE 42 IU/L (3-129); ALT (GPT) 6 IU/L (3-49); AST (GOT) 17 IU/L (2-34); CHLORIDE 97 MEQ/L (99-109); GLUCOSE 73 mg/dL (70-99); POTASSIUM 4.1 MEQ/L (3.7-5.4); SODIUM 133 MEQ/L (136-147); UREA NITROGEN (BUN) 13 mg/dL (9-23)
[2017-07-04 09:07] LABS: CREATININE 2.2 MG/DL (0.6-1.3); GFR ESTIMATE (CALCULATED) 39 mL/min/ (58.99-99999)
[2017-07-04 09:08] LABS: TOTAL BILIRUBIN 0.5 MG/DL (0.0-1.0)
[2017-07-04] MEDS ORDERED: FOLIC ACID1 MG PO (11:40)
[2017-07-04] MEDS ORDERED: DESMOPRESS10 MCG/0.3 ALT NARES (11:40)
[2017-07-05 01:07] VITALS: BP 121/74
[2017-07-05 03:57] VITALS: BP 142/68
[2017-07-05 06:30] LABS: CHLORIDE 97 MEQ/L (99-109); CREATININE 2.7 MG/DL (0.6-1.3); GFR ESTIMATE (CALCULATED) 31 mL/min/ (58.99-99999); GLUCOSE 83 mg/dL (70-99); POTASSIUM 4.1 MEQ/L (3.7-5.4); SODIUM 133 MEQ/L (136-147); UREA NITROGEN (BUN) 22 mg/dL (9-23)
[2017-07-05 06:47] LABS: BASOPHIL (%) 0.3 % (0-1); EOSINOPHIL (%) 1.2 % (0-5); HEMATOCRIT 24.4 % (38.0-50.0); IMM.PLATELET FRACTION 2.4 (1-7); IMMATURE GRANULOCYTE (%) 0.3 % (0.0-0.7); LYMPHOCYTE COUNT 0.9 K/uL (1.0-2.8); MCH 30.5 PG (29.0-34.0); MCHC 32.8 G/DL (30.0-36.0); MCV 93.1 FL (86-99); MONOCYTE (%) 11.9 % (3-12); MONOCYTE COUNT 0.4 K/uL (0-0.8); NEUTROPHIL (%) 59.3 % (45-76); PLAT.SUFFICIENCY VERY DECREASED; RBC DIS.WIDTH-CV 19.6 % (11.8-14.6); RBC DIS.WIDTH-SD 65.2 % (39-53); RED BLOOD COUNT 2.62 M/uL (4.00-5.50); WHITE BLOOD COUNT 3.4 K/uL (4.1-10.2)
[2017-07-05 06:48] LABS: PLATELET COUNT 37 K/uL (156-360)
[2017-07-05 12:14] VITALS: BP 131/62
[2017-07-05 15:01] VITALS: BP 119/59
[2017-07-06] VITALS (7 sets, daily range): BP systolic 90–134; BP diastolic 47–70
[2017-07-06 06:28] LABS: HEMATOCRIT 22.3 % (38.0-50.0); HEMOGLOBIN 7.4 G/DL (12.5-16.6); MCH 31.6 PG (29.0-34.0); MCHC 33.2 G/DL (30.0-36.0); MCV 95.3 FL (86-99); RBC DIS.WIDTH-CV 19.9 % (11.8-14.6); RBC DIS.WIDTH-SD 68.4 % (39-53); RED BLOOD COUNT 2.34 M/uL (4.00-5.50); WHITE BLOOD COUNT 4.1 K/uL (4.1-10.2)
[2017-07-06 06:43] LABS: CHLORIDE 98 MEQ/L (99-109); CREATININE 2.3 MG/DL (0.6-1.3); GFR ESTIMATE (CALCULATED) 37 mL/min/ (58.99-99999); GLUCOSE 71 mg/dL (70-99); POTASSIUM 3.8 MEQ/L (3.7-5.4); SODIUM 134 MEQ/L (136-147); UREA NITROGEN (BUN) 15 mg/dL (9-23)
[2017-07-06 06:49] LABS: IMM.PLATELET FRACTION 4.5 (1-7); PLAT.SUFFICIENCY VERY DECREASED; PLATELET COUNT 28 K/uL (156-360)
[2017-07-06 07:57] LABS: TOTAL BILIRUBIN 0.4 MG/DL (0.0-1.0)
[2017-07-07] VITALS (7 sets, daily range): BP systolic 90–114; BP diastolic 47–60
[2017-07-07 06:41] LABS: HEMATOCRIT 21.9 % (38.0-50.0); HEMOGLOBIN 7.3 G/DL (12.5-16.6); MCH 31.7 PG (29.0-34.0); MCHC 33.3 G/DL (30.0-36.0); MCV 95.2 FL (86-99); RBC DIS.WIDTH-CV 19.3 % (11.8-14.6); RBC DIS.WIDTH-SD 66.4 % (39-53); WHITE BLOOD COUNT 3.9 K/uL (4.1-10.2)
[2017-07-07 06:58] LABS: CHLORIDE 100 MEQ/L (99-109); GFR ESTIMATE (CALCULATED) 26 mL/min/ (58.99-99999); GLUCOSE 72 mg/dL (70-99); POTASSIUM 3.7 MEQ/L (3.7-5.4); SODIUM 136 MEQ/L (136-147); UREA NITROGEN (BUN) 22 mg/dL (9-23)
[2017-07-07 06:59] LABS: CREATININE 3.1 MG/DL (0.6-1.3)
[2017-07-07 07:51] LABS: IMM.PLATELET FRACTION 2.1 (1-7); PLAT.SUFFICIENCY DECREASED; PLATELET COUNT 33 K/uL (156-360)
[2017-07-08 04:24] VITALS: BP 146/67
[2017-07-08 06:27] LABS: HEMOGLOBIN 7.2 G/DL (12.5-16.6); MCHC 32.7 G/DL (30.0-36.0); MCV 94.8 FL (86-99); RBC DIS.WIDTH-CV 18.9 % (11.8-14.6); RBC DIS.WIDTH-SD 65.4 % (39-53); RED BLOOD COUNT 2.32 M/uL (4.00-5.50); WHITE BLOOD COUNT 4.2 K/uL (4.1-10.2)
[2017-07-08 06:46] LABS: CHLORIDE 99 MEQ/L (99-109); CREATININE 3.6 MG/DL (0.6-1.3); GFR ESTIMATE (CALCULATED) 22 mL/min/ (58.99-99999); GLUCOSE 69 mg/dL (70-99); POTASSIUM 3.9 MEQ/L (3.7-5.4); SODIUM 134 MEQ/L (136-147); UREA NITROGEN (BUN) 28 mg/dL (9-23)
[2017-07-08 06:56] LABS: PLAT.SUFFICIENCY VERY DECREASED; PLATELET COUNT 40 K/uL (156-360)
[2017-07-08 07:57] VITALS: BP 123/63
[2017-07-08 16:33] VITALS: BP 126/61
[2017-07-08 21:01] VITALS: BP 132/68
[2017-07-09 00:15] VITALS: BP 137/63
[2017-07-09 07:10] VITALS: BP 107/60
[2017-07-09 08:56] LABS: HEMATOCRIT 26.3 % (38.0-50.0); HEMOGLOBIN 8.7 G/DL (12.5-16.6); MCH 30.9 PG (29.0-34.0); MCHC 33.1 G/DL (30.0-36.0); MCV 93.3 FL (86-99); RBC DIS.WIDTH-CV 18.6 % (11.8-14.6); WHITE BLOOD COUNT 4.7 K/uL (4.1-10.2)
[2017-07-09 09:00] LABS: PLATELET COUNT 87 K/uL (156-360); RED BLOOD COUNT 2.82 M/uL (4.00-5.50)
[2017-07-09 09:22] LABS: ALBUMIN 1.9 G/DL (3.2-4.8); CHLORIDE 101 MEQ/L (99-109); GLUCOSE 71 mg/dL (70-99); POTASSIUM 3.9 MEQ/L (3.7-5.4); SODIUM 135 MEQ/L (136-147); UREA NITROGEN (BUN) 20 mg/dL (9-23)
[2017-07-09 09:25] LABS: CREATININE 2.8 MG/DL (0.6-1.3); GFR ESTIMATE (CALCULATED) 30 mL/min/ (58.99-99999); PHOSPHORUS 2.2 mg/dL (2.5-4.9)
[2017-07-09 15:22] VITALS: BP 122/76
[2017-07-10] VITALS: BP 173/93
[2017-07-10 06:42] LABS: HEMATOCRIT 25.7 % (38.0-50.0); HEMOGLOBIN 8.3 G/DL (12.5-16.6); MCH 30.1 PG (29.0-34.0); MCHC 32.3 G/DL (30.0-36.0); MCV 93.1 FL (86-99); PLATELET COUNT 65 K/uL (156-360); RBC DIS.WIDTH-SD 59.5 % (39-53); RED BLOOD COUNT 2.76 M/uL (4.00-5.50); WHITE BLOOD COUNT 4.6 K/uL (4.1-10.2)
[2017-07-10 07:04] LABS: ALBUMIN 1.9 G/DL (3.2-4.8); CHLORIDE 99 MEQ/L (99-109); CREATININE 3.2 MG/DL (0.6-1.3); GFR ESTIMATE (CALCULATED) 25 mL/min/ (58.99-99999); GLUCOSE 84 mg/dL (70-99); PHOSPHORUS 2.9 mg/dL (2.5-4.9); POTASSIUM 4.1 MEQ/L (3.7-5.4); SODIUM 134 MEQ/L (136-147)
[2017-07-10 07:06] LABS: UREA NITROGEN (BUN) 31 mg/dL (9-23)
[2017-07-10 09:00] VITALS: BP 159/77
[2017-07-10 13:49] LABS: Heparin Induced Plt Ab Weak Positive (Negative)
[2017-07-10 15:00] VITALS: BP 144/66
[2017-07-10 15:28] VITALS: BP 106/59
[2017-07-10 15:56] LABS: UFH SRA Result Negative (Negative)
[2017-07-10 19:52] VITALS: BP 101/53
[2017-07-11 00:03] VITALS: BP 105/59
[2017-07-11 03:55] VITALS: BP 134/65
[2017-07-11 06:29] LABS: HEMATOCRIT 21.9 % (38.0-50.0); HEMOGLOBIN 7.2 G/DL (12.5-16.6); MCH 30.8 PG (29.0-34.0); MCHC 32.9 G/DL (30.0-36.0); MCV 93.6 FL (86-99); RBC DIS.WIDTH-CV 17.7 % (11.8-14.6); RBC DIS.WIDTH-SD 58.9 % (39-53); RED BLOOD COUNT 2.34 M/uL (4.00-5.50); WHITE BLOOD COUNT 4.7 K/uL (4.1-10.2)
[2017-07-11 06:46] LABS: ALBUMIN 1.7 G/DL (3.2-4.8); CHLORIDE 98 MEQ/L (99-109); GFR ESTIMATE (CALCULATED) 21 mL/min/ (58.99-99999); GLUCOSE 83 mg/dL (70-99); PHOSPHORUS 3.1 mg/dL (2.5-4.9); SODIUM 133 MEQ/L (136-147); UREA NITROGEN (BUN) 34 mg/dL (9-23)
[2017-07-11 06:47] LABS: CREATININE 3.8 MG/DL (0.6-1.3)
[2017-07-11 06:52] LABS: PLATELET COUNT 50 K/uL (156-360)
[2017-07-11 07:08] VITALS: BP 142/78
[2017-07-11 08:10] VITALS: BP 115/57
[2017-07-11 15:57] VITALS: BP 123/62
[2017-07-11 23:59] VITALS: BP 129/56
[2017-07-12 06:52] LABS: HEMATOCRIT 22.9 % (38.0-50.0); HEMOGLOBIN 7.6 G/DL (12.5-16.6); MCHC 33.2 G/DL (30.0-36.0); MCV 93.5 FL (86-99); RBC DIS.WIDTH-CV 17.2 % (11.8-14.6); RBC DIS.WIDTH-SD 58.4 % (39-53); RED BLOOD COUNT 2.45 M/uL (4.00-5.50); WHITE BLOOD COUNT 4.6 K/uL (4.1-10.2)
[2017-07-12 07:12] LABS: ALBUMIN 1.7 G/DL (3.2-4.8); CHLORIDE 99 MEQ/L (99-109); CREATININE 4.2 MG/DL (0.6-1.3); GFR ESTIMATE (CALCULATED) 19 mL/min/ (58.99-99999); GLUCOSE 81 mg/dL (70-99); PHOSPHORUS 2.9 mg/dL (2.5-4.9); POTASSIUM 3.9 MEQ/L (3.7-5.4); SODIUM 133 MEQ/L (136-147); UREA NITROGEN (BUN) 37 mg/dL (9-23)
[2017-07-12 07:18] LABS: IMM.PLATELET FRACTION 1.6 (1-7); PLAT.SUFFICIENCY VERY DECREASED; PLATELET COUNT 43 K/uL (156-360)
[2017-07-12 16:17] VITALS: BP 114/55
[2017-07-12 20:43] VITALS: BP 129/59
[2017-07-12 22:34] VITALS: BP 134/71
[2017-07-13] VITALS (11 sets, daily range): BP systolic 129–178; BP diastolic 65–87
[2017-07-13 10:04] LABS: BASOPHIL (%) 0.7 % (0-1); EOSINOPHIL (%) 0.7 % (0-5); HEMATOCRIT 27.4 % (38.0-50.0); HEMOGLOBIN 9.1 G/DL (12.5-16.6); IMMATURE GRANULOCYTE (%) 0.5 % (0.0-0.7); LYMPHOCYTE (%) 22.5 % (15-42); LYMPHOCYTE COUNT 0.9 K/uL (1.0-2.8); MCH 29.4 PG (29.0-34.0); MCHC 33.2 G/DL (30.0-36.0); MONOCYTE (%) 12.9 % (3-12); MONOCYTE COUNT 0.5 K/uL (0-0.8); NEUTROPHIL (%) 62.7 % (45-76); NEUTROPHIL COUNT 2.6 K/uL (1.8-6.4); RBC DIS.WIDTH-CV 19.3 % (11.8-14.6); RBC DIS.WIDTH-SD 61.7 % (39-53); RED BLOOD COUNT 3.09 M/uL (4.00-5.50); WHITE BLOOD COUNT 4.2 K/uL (4.1-10.2)
[2017-07-13 10:05] LABS: MCV 88.7 FL (86-99)
[2017-07-13 10:18] LABS: IMM.PLATELET FRACTION 1.7 (1-7); PLAT.SUFFICIENCY VERY DECREASED
[2017-07-13 10:21] LABS: CHLORIDE 102 MEQ/L (99-109); GFR ESTIMATE (CALCULATED) 27 mL/min/ (58.99-99999); GLUCOSE 84 mg/dL (70-99); POTASSIUM 3.9 MEQ/L (3.7-5.4); SODIUM 136 MEQ/L (136-147); UREA NITROGEN (BUN) 33 mg/dL (9-23)
[2017-07-13 10:28] LABS: PLATELET COUNT 29 K/uL (156-360)
[2017-07-14 00:23] VITALS: BP 196/89
[2017-07-14 07:14] LABS: HEMATOCRIT 24.1 % (38.0-50.0); HEMOGLOBIN 8.5 G/DL (12.5-16.6); MCH 30.8 PG (29.0-34.0); MCHC 35.3 G/DL (30.0-36.0); MCV 87.3 FL (86-99); PLATELET COUNT 75 K/uL (156-360); RBC DIS.WIDTH-CV 18.7 % (11.8-14.6); RED BLOOD COUNT 2.76 M/uL (4.00-5.50); WHITE BLOOD COUNT 5.7 K/uL (4.1-10.2)
[2017-07-14 09:50] VITALS: BP 168/72
[2017-07-14 13:40] VITALS: BP 170/82
[2017-07-14 23:41] VITALS: BP 135/66
[2017-07-15 01:45] LABS: ALBUMIN 1.9 g/dL (3.2-4.8); CHLORIDE 102 mEq/L (99-109); SODIUM 136 mEq/L (136-147)
[2017-07-15 01:48] LABS: GLUCOSE 78 mg/dL (70-99); TOTAL PROTEIN 7.6 g/dL (6.4-8.3)
[2017-07-15 01:50] LABS: TOTAL BILIRUBIN 0.5 mg/dL (0.0-1.0)
[2017-07-15 01:51] LABS: ALKALINE PHOSPHATASE 52 IU/L (3-129)
[2017-07-15 01:52] LABS: GFR ESTIMATE (CALCULATED) 20 mL/min/ (58.99-99999)
[2017-07-15 01:53] LABS: AST (GOT) 11 IU/L (2-34); DIRECT BILIRUBIN 0.3 mg/dL (0.0-0.3); UREA NITROGEN (BUN) 50 mg/dL (9-23)
[2017-07-15 02:11] LABS: ALT (GPT) < 1 IU/L (3-49)
[2017-07-15 08:03] VITALS: BP 126/74
[2017-07-15 08:23] LABS: HEMATOCRIT 24.3 % (38.0-50.0); MCH 29.9 PG (29.0-34.0); MCHC 32.9 G/DL (30.0-36.0); MCV 90.7 FL (86-99); PLATELET COUNT 59 K/uL (156-360); RBC DIS.WIDTH-CV 18.7 % (11.8-14.6); RED BLOOD COUNT 2.68 M/uL (4.00-5.50); WHITE BLOOD COUNT 3.5 K/uL (4.1-10.2)
[2017-07-15 08:56] LABS: CHLORIDE 99 MEQ/L (99-109); GFR ESTIMATE (CALCULATED) 20 mL/min/ (58.99-99999); PHOSPHORUS 3.8 mg/dL (2.5-4.9); SODIUM 134 MEQ/L (136-147); UREA NITROGEN (BUN) 52 mg/dL (9-23)
[2017-07-15 09:24] LABS: GLUCOSE 121 mg/dL (70-99)
[2017-07-15 16:00] VITALS: BP 148/75
[2017-07-15 23:42] VITALS: BP 132/102
[2017-07-16 07:00] LABS: HEMATOCRIT 19.9 % (38.0-50.0); MCH 30.4 PG (29.0-34.0); MCHC 33.2 G/DL (30.0-36.0); MCV 91.7 FL (86-99); PLATELET COUNT 57 K/uL (156-360); RBC DIS.WIDTH-CV 18.5 % (11.8-14.6); RED BLOOD COUNT 2.17 M/uL (4.00-5.50)
[2017-07-16 07:03] LABS: HEMOGLOBIN 6.6 G/DL (12.5-16.6)
[2017-07-16 07:08] VITALS: BP 110/58
[2017-07-16 07:23] LABS: ALBUMIN 1.8 G/DL (3.2-4.8); CHLORIDE 98 MEQ/L (99-109); GFR ESTIMATE (CALCULATED) 27 mL/min/ (58.99-99999); PHOSPHORUS 2.8 mg/dL (2.5-4.9); POTASSIUM 3.6 MEQ/L (3.7-5.4); SODIUM 132 MEQ/L (136-147); UREA NITROGEN (BUN) 33 mg/dL (9-23)
[2017-07-16 07:29] LABS: GLUCOSE 78 mg/dL (70-99)
[2017-07-16 10:18] LABS: HEMATOCRIT 22.6 % (38.0-50.0); HEMOGLOBIN 7.3 G/DL (12.5-16.6); MCV 91.5 FL (86-99)
[2017-07-16 15:05] VITALS: BP 108/55
[2017-07-16 23:52] VITALS: BP 142/66
[2017-07-16 23:56] VITALS: BP 137/61
[2017-07-17] VITALS: BP 123/60
[2017-07-17 01:00] VITALS: BP 126/58
[2017-07-17 02:24] VITALS: BP 114/57
[2017-07-17 08:05] VITALS: BP 116/47
[2017-07-17 11:01] VITALS: BP 124/58
[2017-07-17 11:32] LABS: HEMATOCRIT 26.3 % (38.0-50.0); HEMOGLOBIN 8.7 G/DL (12.5-16.6); MCH 29.9 PG (29.0-34.0); MCHC 33.1 G/DL (30.0-36.0); MCV 90.4 FL (86-99); RBC DIS.WIDTH-CV 17.2 % (11.8-14.6); RBC DIS.WIDTH-SD 56.1 % (39-53)
[2017-07-17 11:35] LABS: RED BLOOD COUNT 2.91 M/uL (4.00-5.50)
[2017-07-17 11:57] LABS: PLAT.SUFFICIENCY DECREASED
[2017-07-17 12:26] LABS: ALBUMIN 1.9 G/DL (3.2-4.8); CHLORIDE 100 MEQ/L (99-109); POTASSIUM 3.9 MEQ/L (3.7-5.4); SODIUM 134 MEQ/L (136-147)
[2017-07-17 12:32] LABS: CREATININE 2.4 MG/DL (0.6-1.3); GFR ESTIMATE (CALCULATED) 36 mL/min/ (58.99-99999); GLUCOSE 81 mg/dL (70-99); PHOSPHORUS 2.3 mg/dL (2.5-4.9); UREA NITROGEN (BUN) 21 mg/dL (9-23)
[2017-07-17 14:03] LABS: PLATELET COUNT 43 K/uL (156-360)
== END 2017-07-17 16:35 | DRG 166 ==
LOC: EME 21:52 → EDOF 07-02 03:11 → 5SOUTH 07-02 03:11 → ENRESERV 07-02 03:18 → 5SOUTH 07-02 05:05
PROVIDERS: Anesthesiology; Emergency Medicine; Hospitalist; Internal Medicine; Internal Medicine Hematology & Oncology; Internal Medicine Nephrology; Physician Assistant; Physician Assistant Medical
PROC: 30233N1 Transfusion of Nonautologous Red Blood Cells into Peripheral Vein, Percutaneous Approach (ICD-10-PCS; principal; 2017-07-03)
PROC: 30233R1 Transfusion of Nonautologous Platelets into Peripheral Vein, Percutaneous Approach (ICD-10-PCS; 2017-07-03)
PROC: 5A1D70Z Performance of Urinary Filtration, Intermittent, Less than 6 Hours Per Day (ICD-10-PCS; 2017-07-03)
PROC: 03170KD Bypass Right Brachial Artery to Upper Arm Vein with Nonautologous Tissue Substitute, Open Approach (ICD-10-PCS; 2017-07-09)
PROC: 057B3DZ Dilation of Right Basilic Vein with Intraluminal Device, Percutaneous Approach (ICD-10-PCS; 2017-07-11)
DX: J44.0 Chronic obstructive pulmonary disease with (acute) lower respiratory infection (principal); J20.9 Acute bronchitis, unspecified; R04.2 Hemoptysis; E87.6 Hypokalemia; D59.4 Other nonautoimmune hemolytic anemias; D69.6 Thrombocytopenia, unspecified; J44.1 Chronic obstructive pulmonary disease with (acute) exacerbation; T82.858A Stenosis of other vascular prosthetic devices, implants and grafts, initial encounter; Y83.2 Surgical operation with anastomosis, bypass or graft as the cause of abnormal reaction of the patient, or of later complication, without mention of misadventure at the time of the procedure; I13.2 Hypertensive heart and chronic kidney disease with heart failure and with stage 5 chronic kidney disease, or end stage renal disease; I50.32 Chronic diastolic (congestive) heart failure; N18.6 End stage renal disease; F03.90 Unspecified dementia, unspecified severity, without behavioral disturbance, psychotic disturbance, mood disturbance, and anxiety; K21.9 Gastro-esophageal reflux disease without esophagitis; G47.30 Sleep apnea, unspecified; F32.9 Major depressive disorder, single episode, unspecified; G47.00 Insomnia, unspecified; D63.1 Anemia in chronic kidney disease; E43 Unspecified severe protein-calorie malnutrition; E53.8 Deficiency of other specified B group vitamins; E78.5 Hyperlipidemia, unspecified; F41.9 Anxiety disorder, unspecified; E83.39 Other disorders of phosphorus metabolism; G40.909 Epilepsy, unspecified, not intractable, without status epilepticus; N25.81 Secondary hyperparathyroidism of renal origin; E55.9 Vitamin D deficiency, unspecified; I27.20 Pulmonary hypertension, unspecified; I07.1 Rheumatic tricuspid insufficiency; Z99.2 Dependence on renal dialysis; Z91.041 Radiographic dye allergy status; Z87.891 Personal history of nicotine dependence; Z79.82 Long term (current) use of aspirin; Z91.19 Patient's noncompliance with other medical treatment and regimen; Z86.718 Personal history of other venous thrombosis and embolism; Z86.73 Personal history of transient ischemic attack (TIA), and cerebral infarction without residual deficits; Z91.14 Patient's other noncompliance with medication regimen; Z68.1 Body mass index [BMI] 19.9 or less, adult
CPT/HCPCS: 70450; 70490; 71045; 71250; 71260; 73564; 80048; 80048 91; 80053; 80069; 80076; 82247; 82272; 82607; 82728; 82746; 82948; 83010 90; 83540; 83615; 83690; 83735; 83880; 84100; 84466; 84484; 85007; 85014; 85018; 85025; 85027; 85060; 85378; 85384; 85610; 85730; 86022 90; 86850; 86860; 86870; 86880; 86900; 86901; 86905; 86920; 87340; 93005; 93971; 94640; 94640 76; 97530 GP; 99202; 99281; 99284; 99285; C1725; C1755; C1768; C1769; C1874; C1894; C9113; J0360; J0690; J0881; J1200; J1644; J1940; J1953; J2060; J2250; J2720; J2930; J3475; J3480; J7040; J7050; P9016; P9035; P9037; S0020; S0028

== ENCOUNTER 2017-07-21 02:02 | Inpatient (IN) | payer OTHER ==
[2017-07-21] VITALS (7 sets, daily range): BP systolic 98–148; BP diastolic 52–75
[~2017-07-21] VITALS: Ht 172.7 cm; Wt 49.6 kg
[~2017-07-21 02:02] MED LIST changes: -ALBUTEROL2.5 MG/3 M IH; -ATORVASTATIN CA80 MG PO; -CATAPRES0.1 MG PO; +DESMOPRESS10 MCG/0.3 ALT NARES; -OMEPRAZOLE20 MG PO; -ONDANSETRON ODT4 MG PO
[2017-07-21 03:02] LABS: HEMATOCRIT 17.8 % (38.0-50.0); IMM.PLATELET FRACTION 2.7 (1-7); MCH 29.9 PG (29.0-34.0); MCHC 33.1 G/DL (30.0-36.0); MCV 90.4 FL (86-99); PLATELET COUNT 48 K/uL (156-360); RBC DIS.WIDTH-SD 54.4 % (39-53); WHITE BLOOD COUNT 3.6 K/uL (4.1-10.2)
[2017-07-21 03:05] LABS: HEMOGLOBIN 5.9 G/DL (12.5-16.6); RED BLOOD COUNT 1.97 M/uL (4.00-5.50)
[2017-07-21 03:07] LABS: CHLORIDE 101 mEq/L (99-109); POTASSIUM 2.7 mEq/L (3.7-5.4); SODIUM 137 mEq/L (136-147)
[2017-07-21 03:08] LABS: GLUCOSE 135 mg/dL (70-99)
[2017-07-21 03:12] LABS: CREATININE 3.1 mg/dL (0.6-1.3); GFR ESTIMATE (CALCULATED) 26 mL/min/ (58.99-99999)
[2017-07-21 03:13] LABS: UREA NITROGEN (BUN) 41 mg/dL (9-23)
[2017-07-21 03:35] LABS: MCH 30.1 PG (29.0-34.0); MCHC 33.2 G/DL (30.0-36.0); MCV 90.9 FL (86-99); PLATELET COUNT 52 K/uL (156-360); RBC DIS.WIDTH-CV 17.1 % (11.8-14.6); RED BLOOD COUNT 2.09 M/uL (4.00-5.50); WHITE BLOOD COUNT 4.1 K/uL (4.1-10.2)
[2017-07-21 03:40] LABS: HEMOGLOBIN 6.3 G/DL (12.5-16.6)
[2017-07-21 06:57] LABS: VALPROIC ACID (DEPAKOTE) 44.5 MCG/ML (50-100)
[2017-07-21 07:20] LABS: CHLORIDE 99 MEQ/L (99-109); GFR ESTIMATE (CALCULATED) 27 mL/min/ (58.99-99999); POTASSIUM 2.9 MEQ/L (3.7-5.4); SODIUM 137 MEQ/L (136-147); UREA NITROGEN (BUN) 39 mg/dL (9-23)
[2017-07-21 07:27] LABS: GLUCOSE 66 mg/dL (70-99)
[2017-07-21] MEDS ORDERED: MINOXIDIL2.5 MG PO (11:32)
[2017-07-22 03:34] VITALS: BP 138/63
[2017-07-22 07:23] VITALS: BP 143/74
[2017-07-22 11:20] LABS: HEMATOCRIT 20.4 % (38.0-50.0); HEMOGLOBIN 6.7 G/DL (12.5-16.6); MCH 30.2 PG (29.0-34.0); MCHC 32.8 G/DL (30.0-36.0); MCV 91.9 FL (86-99); RBC DIS.WIDTH-CV 17.1 % (11.8-14.6); RBC DIS.WIDTH-SD 54.8 % (39-53); RED BLOOD COUNT 2.22 M/uL (4.00-5.50); WHITE BLOOD COUNT 3.6 K/uL (4.1-10.2)
[2017-07-22 11:37] LABS: PLAT.SUFFICIENCY DECREASED; PLATELET COUNT 47 K/uL (156-360)
[2017-07-22 11:42] LABS: ALBUMIN 1.7 G/DL (3.2-4.8); CHLORIDE 101 MEQ/L (99-109); CREATININE 3.5 MG/DL (0.6-1.3); GFR ESTIMATE (CALCULATED) 23 mL/min/ (58.99-99999); GLUCOSE 93 mg/dL (70-99); PHOSPHORUS 1.9 mg/dL (2.5-4.9); SODIUM 135 MEQ/L (136-147); UREA NITROGEN (BUN) 44 mg/dL (9-23)
[2017-07-22 11:43] LABS: POTASSIUM 3.9 MEQ/L (3.7-5.4)
[2017-07-22 12:00] VITALS: BP 112/66
[2017-07-22 16:27] VITALS: BP 129/66
[2017-07-22 18:51] VITALS: BP 136/66
[2017-07-22 22:45] VITALS: BP 149/67
[2017-07-23 04:01] VITALS: BP 139/69
[2017-07-23 06:54] LABS: HEMATOCRIT 25.8 % (38.0-50.0); HEMOGLOBIN 8.5 G/DL (12.5-16.6); MCH 30.1 PG (29.0-34.0); MCHC 32.9 G/DL (30.0-36.0); MCV 91.5 FL (86-99); RBC DIS.WIDTH-CV 16.1 % (11.8-14.6); RBC DIS.WIDTH-SD 52.4 % (39-53); WHITE BLOOD COUNT 3.8 K/uL (4.1-10.2)
[2017-07-23 06:56] LABS: RED BLOOD COUNT 2.82 M/uL (4.00-5.50)
[2017-07-23 07:30] LABS: IMM.PLATELET FRACTION 2.5 (1-7); PLAT.SUFFICIENCY DECREASED; PLATELET COUNT 48 K/uL (156-360)
[2017-07-23 07:37] VITALS: BP 138/79
[2017-07-23 12:05] VITALS: BP 136/77
[2017-07-23] MEDS ORDERED: OXYCODONE HCL5 MG PO (14:37)
[2017-07-23 15:58] VITALS: BP 135/76
== END 2017-07-23 17:16 | DRG 808 ==
LOC: EME → EDBD 02:02 → EME 02:02 → 5EAST 04:13 → EDOF 04:13 → ENRESERV 04:14 → EDOF 04:26 → ENRESERV 04:40 → 5EAST 05:27
PROVIDERS: Emergency Medicine; Internal Medicine
PROC: 5A1D70Z Performance of Urinary Filtration, Intermittent, Less than 6 Hours Per Day (ICD-10-PCS; principal; 2017-07-22)
DX: D59.4 Other nonautoimmune hemolytic anemias (principal); N18.6 End stage renal disease; J18.9 Pneumonia, unspecified organism; E46 Unspecified protein-calorie malnutrition; I12.0 Hypertensive chronic kidney disease with stage 5 chronic kidney disease or end stage renal disease; F05 Delirium due to known physiological condition; N25.81 Secondary hyperparathyroidism of renal origin; Z68.1 Body mass index [BMI] 19.9 or less, adult; F33.9 Major depressive disorder, recurrent, unspecified; I50.32 Chronic diastolic (congestive) heart failure; D69.6 Thrombocytopenia, unspecified; E53.8 Deficiency of other specified B group vitamins; K21.9 Gastro-esophageal reflux disease without esophagitis; E78.5 Hyperlipidemia, unspecified; E87.6 Hypokalemia; G30.9 Alzheimer's disease, unspecified; F02.80 Dementia in other diseases classified elsewhere, unspecified severity, without behavioral disturbance, psychotic disturbance, mood disturbance, and anxiety; G40.909 Epilepsy, unspecified, not intractable, without status epilepticus; R32 Unspecified urinary incontinence; E61.1 Iron deficiency; E55.9 Vitamin D deficiency, unspecified; J44.9 Chronic obstructive pulmonary disease, unspecified; I36.1 Nonrheumatic tricuspid (valve) insufficiency; Z99.2 Dependence on renal dialysis; Z91.19 Patient's noncompliance with other medical treatment and regimen; Z91.14 Patient's other noncompliance with medication regimen; Z87.891 Personal history of nicotine dependence; Z90.49 Acquired absence of other specified parts of digestive tract; Z91.041 Radiographic dye allergy status; Z79.51 Long term (current) use of inhaled steroids; Z87.440 Personal history of urinary (tract) infections
CPT/HCPCS: 71045; 80048; 80048 91; 80053; 80164; 81003; 83010 90; 83615; 84100; 85027; 85384; 86850; 86860; 86870; 86880; 86900; 86901; 86905; 86920; 87040; 87502; 93005; 94640; 94640 76; 99281; 99285; J0881; J1200; J1756; P9016

== ENCOUNTER 2017-07-25 15:57 | Inpatient (IN) | payer OTHER ==
[~2017-07-25] VITALS: Ht 170.2 cm; Wt 52.7 kg
[2017-07-25 16:45] LABS: HEMATOCRIT 21.4 % (38.0-50.0); MCH 30.3 PG (29.0-34.0); MCHC 32.7 G/DL (30.0-36.0); MCV 92.6 FL (86-99); RBC DIS.WIDTH-CV 16.6 % (11.8-14.6); RED BLOOD COUNT 2.31 M/uL (4.00-5.50); WHITE BLOOD COUNT 6.7 K/uL (4.1-10.2)
[2017-07-25 16:56] LABS: ALBUMIN 1.8 g/dL (3.2-4.8); CHLORIDE 99 mEq/L (99-109); POTASSIUM 3.4 mEq/L (3.7-5.4); SODIUM 137 mEq/L (136-147)
[2017-07-25 16:58] LABS: GLUCOSE 112 mg/dL (70-99); TOTAL PROTEIN 7.2 g/dL (6.4-8.3)
[2017-07-25 17:00] LABS: TOTAL BILIRUBIN 0.3 mg/dL (0.0-1.0)
[2017-07-25 17:02] LABS: ALKALINE PHOSPHATASE 45 IU/L (3-129); GFR ESTIMATE (CALCULATED) 34 mL/min/ (58.99-99999)
[2017-07-25 17:03] LABS: UREA NITROGEN (BUN) 28 mg/dL (9-23)
[2017-07-25 17:04] LABS: AST (GOT) 17 IU/L (2-34)
[2017-07-25 17:05] LABS: ALT (GPT) 3 IU/L (3-49); CREATININE 2.5 mg/dL (0.6-1.3)
[2017-07-25 17:39] LABS: HEMATOLOGY COMMENT 1 SN; PLAT.SUFFICIENCY DECREASED
[2017-07-25 17:40] LABS: IMM.PLATELET FRACTION 4.3 (1-7); PLATELET COUNT 35 K/uL (156-360)
[2017-07-25 19:19] LABS: APPEARANCE CLEAR ((CLEAR)); BILIRUBIN NEGATIVE; BLOOD MODERATE; COLOR AMBER ((YELLOW)); GLUCOSE (STRIP) NEGATIVE; KETONES NEGATIVE; LEUKOCYTES NEGATIVE; NITRITE NEGATIVE; PROTEIN (STRIP) >=500; SPECIFIC GRAVITY 1.019 (1.000-1.030); UROBILINOGEN 0.2 MG/DL (0.2-1.0)
[2017-07-25 20:14] LABS: EPITHELIAL CELLS RARE /HPF; RED BLOOD CELLS 40-50 /HPF (0-5); WHITE BLOOD CELLS 0-5 /HPF (0-5)
[2017-07-25 20:15] LABS: BACTERIA RARE /HPF; MUCUS RARE /LPF; UCUL ADDED? NO
[2017-07-25 20:19] LABS: HYALINE CASTS 0-5 /LPF
[2017-07-25 20:30] VITALS: BP 170/80
[2017-07-25 23:26] VITALS: BP 160/77
[2017-07-26 00:35] LABS: HEMATOCRIT 21.7 % (38.0-50.0); HEMOGLOBIN 7.1 G/DL (12.5-16.6); MCV 93.5 FL (86-99)
[2017-07-26] MEDS ORDERED: ALBUTEROL2.5 MG/3 M IH (00:51)
[2017-07-26] MEDS ORDERED: ATORVASTATIN CA80 MG PO (00:52)
[2017-07-26] MEDS ORDERED: CATAPRES0.1 MG PO (00:53)
[2017-07-26] MEDS ORDERED: DDAVP 0.0110 MCG/0.1 NS (00:58)
[2017-07-26] MEDS ORDERED: DEPAKOTE500 MG PO (01:01)
[2017-07-26] MEDS ORDERED: LEXAPRO10 MG PO (01:02)
[2017-07-26] MEDS ORDERED: FOLIC ACID1 MG PO (01:05)
[2017-07-26] MEDS ORDERED: APRESOLINE25 MG PO (01:11)
[2017-07-26] MEDS ORDERED: KEPPRA1000 MG PO (01:16)
[2017-07-26] MEDS ORDERED: LABETALOL HCL200 MG PO (01:18)
[2017-07-26] MEDS ORDERED: MELATONIN5 M1 PO (01:21)
[2017-07-26] MEDS ORDERED: REMERON15 M2 PO (01:22)
[2017-07-26] MEDS ORDERED: PROCARDIA XL60 MG PO (01:23)
[2017-07-26] MEDS ORDERED: NEPHRO-VITE RX1 EACH PO (01:24)
[2017-07-26] MEDS ORDERED: ONDANSETRON ODT4 MG PO (01:27)
[2017-07-26] MEDS ORDERED: OMEPRAZOLE20 MG PO (01:27)
[2017-07-26] MEDS ORDERED: SPIRIVA RESPIMAT4 GM IH (01:27)
[2017-07-26] MEDS ORDERED: OXYCODONE HCL5 MG PO (01:29)
[2017-07-26] MEDS ORDERED: TYLENOL325 M2 PO (01:31)
[2017-07-26] MEDS ORDERED: TAMSULOSIN HCL0.4 MG PO (01:32)
[2017-07-26 04:00] VITALS: BP 179/109
[2017-07-26 07:01] LABS: BASOPHIL (%) 0.4 % (0-1); EOSINOPHIL (%) 0.2 % (0-5); HEMATOCRIT 24.7 % (38.0-50.0); HEMOGLOBIN 8.1 G/DL (12.5-16.6); IMMATURE GRANULOCYTE (%) 0.8 % (0.0-0.7); LYMPHOCYTE (%) 12.1 % (15-42); MCH 30.8 PG (29.0-34.0); MCHC 32.8 G/DL (30.0-36.0); MCV 93.9 FL (86-99); MONOCYTE (%) 6.3 % (3-12); MONOCYTE COUNT 0.5 K/uL (0-0.8); NEUTROPHIL (%) 80.2 % (45-76); NEUTROPHIL COUNT 6.8 K/uL (1.8-6.4); RBC DIS.WIDTH-CV 16.8 % (11.8-14.6); RBC DIS.WIDTH-SD 56.6 % (39-53); RED BLOOD COUNT 2.63 M/uL (4.00-5.50); WHITE BLOOD COUNT 8.5 K/uL (4.1-10.2)
[2017-07-26 07:39] LABS: CHLORIDE 99 MEQ/L (99-109); CREATININE 2.8 MG/DL (0.6-1.3); GFR ESTIMATE (CALCULATED) 30 mL/min/ (58.99-99999); POTASSIUM 3.7 MEQ/L (3.7-5.4); SODIUM 136 MEQ/L (136-147); UREA NITROGEN (BUN) 33 mg/dL (9-23)
[2017-07-26 07:43] LABS: GLUCOSE 71 mg/dL (70-99)
[2017-07-26 08:29] VITALS: BP 189/99
[2017-07-26 09:19] LABS: IMM.PLATELET FRACTION 4.7 (1-7); PLAT.SUFFICIENCY DECREASED; PLATELET COUNT 39 K/uL (156-360)
[2017-07-26 09:51] LABS: LACTATE DEHYDROGENASE 253 IU/L (20-246)
[2017-07-26 12:18] LABS: HEMATOCRIT 22.7 % (38.0-50.0); HEMOGLOBIN 7.3 G/DL (12.5-16.6)
[2017-07-26 12:27] VITALS: BP 162/78
[2017-07-26 15:26] LABS: ALBUMIN 1.7 G/DL (3.2-4.8); CHLORIDE 99 MEQ/L (99-109); CREATININE 1.9 MG/DL (0.6-1.3); GFR ESTIMATE (CALCULATED) 47 mL/min/ (58.99-99999); GLUCOSE 119 mg/dL (70-99); IRON 17 MCG/DL (35-150); PHOSPHORUS 2.1 mg/dL (2.5-4.9); POTASSIUM 3.6 MEQ/L (3.7-5.4); SODIUM 135 MEQ/L (136-147); UREA NITROGEN (BUN) 23 mg/dL (9-23)
[2017-07-26 15:49] LABS: FOLIC ACID (FOLATE) 15.6 NG/ML (5.0-22.0)
[2017-07-26 17:33] VITALS: BP 109/54
[2017-07-26 20:16] VITALS: BP 145/70
[2017-07-27] VITALS (12 sets, daily range): BP systolic 139–171; BP diastolic 67–91
[2017-07-27 02:31] LABS: STOOL OCCULT BLD 1ST SPECIMEN NEGATIVE
[2017-07-27 07:11] LABS: HEMATOCRIT 21.9 % (38.0-50.0); MCH 29.8 PG (29.0-34.0); MCV 93.2 FL (86-99); RBC DIS.WIDTH-CV 17.1 % (11.8-14.6); RBC DIS.WIDTH-SD 58.4 % (39-53); RED BLOOD COUNT 2.35 M/uL (4.00-5.50); WHITE BLOOD COUNT 4.2 K/uL (4.1-10.2)
[2017-07-27 07:17] LABS: INTER. NORMALIZED RATIO 1.3
[2017-07-27 07:37] LABS: IMM.PLATELET FRACTION 3.5 (1-7); PLAT.SUFFICIENCY DECREASED; PLATELET COUNT 46 K/uL (156-360)
[2017-07-27 07:58] LABS: ALBUMIN 1.8 G/DL (3.2-4.8); CHLORIDE 100 MEQ/L (99-109); CREATININE 1.9 MG/DL (0.6-1.3); GFR ESTIMATE (CALCULATED) 47 mL/min/ (58.99-99999); PHOSPHORUS 2.7 mg/dL (2.5-4.9); POTASSIUM 3.6 MEQ/L (3.7-5.4); SODIUM 136 MEQ/L (136-147); UREA NITROGEN (BUN) 21 mg/dL (9-23)
[2017-07-27 08:00] LABS: GLUCOSE 83 mg/dL (70-99)
[2017-07-27 08:01] LABS: VANCOMYCIN, TROUGH 9.6 MCG/ML (10-20)
[2017-07-27 10:46] LABS: MAGNESIUM 1.6 mg/dl (1.3-2.7)
[2017-07-27 15:22] LABS: HEMATOCRIT 23.6 % (38.0-50.0); HEMOGLOBIN 7.5 G/DL (12.5-16.6); MCV 92.9 FL (86-99)
[2017-07-28] VITALS (11 sets, daily range): BP systolic 124–188; BP diastolic 62–98
[2017-07-28 06:52] LABS: HEMATOCRIT 20.4 % (38.0-50.0); MCH 29.2 PG (29.0-34.0); MCHC 31.4 G/DL (30.0-36.0); MCV 93.2 FL (86-99); RBC DIS.WIDTH-CV 16.7 % (11.8-14.6); RBC DIS.WIDTH-SD 56.4 % (39-53); RED BLOOD COUNT 2.19 M/uL (4.00-5.50); WHITE BLOOD COUNT 3.5 K/uL (4.1-10.2)
[2017-07-28 06:58] LABS: HEMOGLOBIN 6.4 G/DL (12.5-16.6); PLATELET COUNT 78 K/uL (156-360)
[2017-07-28 07:01] LABS: CHLORIDE 100 MEQ/L (99-109); POTASSIUM 3.3 MEQ/L (3.7-5.4); SODIUM 136 MEQ/L (136-147)
[2017-07-28 08:00] LABS: ALBUMIN 1.8 G/DL (3.2-4.8); GLUCOSE 79 mg/dL (70-99); PHOSPHORUS 2.9 mg/dL (2.5-4.9); UREA NITROGEN (BUN) 27 mg/dL (9-23)
[2017-07-28 08:01] LABS: CREATININE 2.6 MG/DL (0.6-1.3); GFR ESTIMATE (CALCULATED) 32 mL/min/ (58.99-99999)
[2017-07-29 04:04] VITALS: BP 128/62
[2017-07-29 06:48] LABS: HEMATOCRIT 23.3 % (38.0-50.0); HEMOGLOBIN 7.7 G/DL (12.5-16.6); MCH 29.1 PG (29.0-34.0); RBC DIS.WIDTH-CV 17.3 % (11.8-14.6); RBC DIS.WIDTH-SD 54.8 % (39-53); WHITE BLOOD COUNT 3.4 K/uL (4.1-10.2)
[2017-07-29 06:49] LABS: MCV 87.9 FL (86-99); RED BLOOD COUNT 2.65 M/uL (4.00-5.50)
[2017-07-29 07:12] LABS: ALBUMIN 1.7 G/DL (3.2-4.8); CHLORIDE 101 MEQ/L (99-109); CREATININE 2.8 MG/DL (0.6-1.3); GFR ESTIMATE (CALCULATED) 30 mL/min/ (58.99-99999); GLUCOSE 72 mg/dL (70-99); MAGNESIUM 1.5 mg/dl (1.3-2.7); PHOSPHORUS 3.2 mg/dL (2.5-4.9); POTASSIUM 3.2 MEQ/L (3.7-5.4); SODIUM 136 MEQ/L (136-147); UREA NITROGEN (BUN) 30 mg/dL (9-23)
[2017-07-29 07:31] VITALS: BP 168/95
[2017-07-29 07:34] LABS: PLAT.SUFFICIENCY DECREASED
[2017-07-29 07:35] LABS: PLATELET COUNT 52 K/uL (156-360)
[2017-07-29 07:39] LABS: ABS NEUTROPHIL COUNT 2.5; ANISOCYTOSIS 1+; BAND NEUTROPHILS 2.6 % (0-8.0); BASOPHILS 1.7 %; EOSINOPHIL ABS CT 0; LYMPHOCYTES 20.9 % (15.0-45.0); MACROCYTES 1+; MONOCYTES 4.4 % (0-9.0); SEG.NEUTROPHILS 70.4 % (46.0-76.0)
[2017-07-29 11:57] VITALS: BP 210/108
[2017-07-29 16:22] VITALS: BP 152/64
[2017-07-29 19:46] VITALS: BP 187/83
[2017-07-29 23:49] VITALS: BP 157/87
[2017-07-30 03:43] VITALS: BP 160/82
[2017-07-30 06:49] LABS: BASOPHIL (%) 0.9 % (0-1); EOSINOPHIL (%) 2.6 % (0-5); EOSINOPHIL COUNT 0.1 K/uL (0-0.3); HEMATOCRIT 23.8 % (38.0-50.0); HEMOGLOBIN 7.7 G/DL (12.5-16.6); IMMATURE GRANULOCYTE (%) 0.6 % (0.0-0.7); LYMPHOCYTE (%) 31.9 % (15-42); LYMPHOCYTE COUNT 1.1 K/uL (1.0-2.8); MCH 28.6 PG (29.0-34.0); MCHC 32.4 G/DL (30.0-36.0); MCV 88.5 FL (86-99); MONOCYTE (%) 7.9 % (3-12); MONOCYTE COUNT 0.3 K/uL (0-0.8); NEUTROPHIL (%) 56.1 % (45-76); NEUTROPHIL COUNT 1.9 K/uL (1.8-6.4); PLATELET COUNT 51 K/uL (156-360); RBC DIS.WIDTH-CV 17.2 % (11.8-14.6); RBC DIS.WIDTH-SD 55.6 % (39-53); RED BLOOD COUNT 2.69 M/uL (4.00-5.50); WHITE BLOOD COUNT 3.4 K/uL (4.1-10.2)
[2017-07-30 07:15] VITALS: BP 181/98
[2017-07-30 07:33] LABS: CHLORIDE 101 MEQ/L (99-109); CREATININE 2.2 MG/DL (0.6-1.3); GFR ESTIMATE (CALCULATED) 39 mL/min/ (58.99-99999); GLUCOSE 66 mg/dL (70-99); POTASSIUM 3.8 MEQ/L (3.7-5.4); SODIUM 135 MEQ/L (136-147); UREA NITROGEN (BUN) 18 mg/dL (9-23)
[2017-07-30 07:34] LABS: MAGNESIUM 2.4 mg/dl (1.3-2.7)
[2017-07-30 15:26] VITALS: BP 131/70
[2017-07-30 16:47] VITALS: BP 164/80
[2017-07-30 22:05] LABS: HEMATOCRIT 22.3 % (38.0-50.0); HEMOGLOBIN 7.1 G/DL (12.5-16.6); MCV 89.9 FL (86-99)
[2017-07-30 23:45] VITALS: BP 128/64
[2017-07-31] VITALS (22 sets, daily range): BP systolic 107–189; BP diastolic 58–89
[2017-07-31 06:38] LABS: CHLORIDE 103 MEQ/L (99-109); GFR ESTIMATE (CALCULATED) 31 mL/min/ (58.99-99999); GLUCOSE 75 mg/dL (70-99); PHOSPHORUS 2.8 mg/dL (2.5-4.9); POTASSIUM 4.5 MEQ/L (3.7-5.4); SODIUM 133 MEQ/L (136-147); UREA NITROGEN (BUN) 22 mg/dL (9-23)
[2017-07-31 06:39] LABS: CREATININE 2.7 MG/DL (0.6-1.3)
[2017-07-31 07:01] LABS: BASOPHIL (%) 1.1 % (0-1); EOSINOPHIL (%) 2.1 % (0-5); HEMATOCRIT 19.2 % (38.0-50.0); HEMOGLOBIN 6.3 G/DL (12.5-16.6); IMMATURE GRANULOCYTE (%) 0.5 % (0.0-0.7); LYMPHOCYTE (%) 39.4 % (15-42); LYMPHOCYTE COUNT 0.7 K/uL (1.0-2.8); MCH 29.9 PG (29.0-34.0); MCHC 32.8 G/DL (30.0-36.0); MONOCYTE (%) 3.2 % (3-12); MONOCYTE COUNT 0.1 K/uL (0-0.8); NEUTROPHIL (%) 53.7 % (45-76); NRBC (%) 2.1 /100 WBC (0-0); PLATELET COUNT 52 K/uL (156-360); RBC DIS.WIDTH-CV 16.4 % (11.8-14.6); RBC DIS.WIDTH-SD 53.2 % (39-53); RED BLOOD COUNT 2.11 M/uL (4.00-5.50); WHITE BLOOD COUNT 1.9 K/uL (4.1-10.2)
[2017-07-31 10:17] LABS: INTER. NORMALIZED RATIO 1.3
[2017-07-31 10:20] LABS: PTT 35.2 SEC (25-37)
[2017-07-31 13:13] LABS: HEMATOCRIT 20.5 % (38.0-50.0); HEMOGLOBIN 6.7 G/DL (12.5-16.6); MCH 29.5 PG (29.0-34.0); MCHC 32.7 G/DL (30.0-36.0); MCV 90.3 FL (86-99); RBC DIS.WIDTH-CV 15.8 % (11.8-14.6); RBC DIS.WIDTH-SD 50.4 % (39-53); RED BLOOD COUNT 2.27 M/uL (4.00-5.50); WHITE BLOOD COUNT 2.1 K/uL (4.1-10.2)
[2017-07-31 13:28] LABS: IMM.PLATELET FRACTION 6.2 (1-7); PLAT.SUFFICIENCY VERY DECREASED; PLATELET COUNT 44 K/uL (156-360)
[2017-07-31 17:20] LABS: NUMBER OF MARKERS 22; SPECIMEN TYPE BONE MARROW; SPECIMEN VIABILITY 97
[2017-07-31 19:02] LABS: HEMOGLOBIN 6.8 G/DL (12.5-16.6); MCH 29.8 PG (29.0-34.0); MCHC 35.8 G/DL (30.0-36.0); MCV 83.3 FL (86-99); RBC DIS.WIDTH-SD 44.2 % (39-53); RED BLOOD COUNT 2.28 M/uL (4.00-5.50); WHITE BLOOD COUNT 2.5 K/uL (4.1-10.2)
[2017-07-31 19:03] LABS: PLATELET COUNT 63 K/uL (156-360)
[2017-07-31 23:21] LABS: MCH 30.1 PG (29.0-34.0); MCHC 34.7 G/DL (30.0-36.0); MCV 86.7 FL (86-99); PLATELET COUNT 54 K/uL (156-360); RBC DIS.WIDTH-CV 15.7 % (11.8-14.6); RBC DIS.WIDTH-SD 48.2 % (39-53); RED BLOOD COUNT 1.96 M/uL (4.00-5.50); WHITE BLOOD COUNT 2.4 K/uL (4.1-10.2)
[2017-07-31 23:24] LABS: HEMOGLOBIN 5.9 G/DL (12.5-16.6)
[2017-08-01] VITALS (17 sets, daily range): BP systolic 130–200; BP diastolic 63–96
[2017-08-01 08:14] LABS: INTER. NORMALIZED RATIO 1.3
[2017-08-01 08:17] LABS: PTT 31.6 SEC (25-37)
[2017-08-01 08:28] LABS: BASOPHIL (%) 0.8 % (0-1); EOSINOPHIL (%) 2.4 % (0-5); EOSINOPHIL COUNT 0.1 K/uL (0-0.3); HEMATOCRIT 15.5 % (38.0-50.0); HEMOGLOBIN 5.2 G/DL (12.5-16.6); LYMPHOCYTE (%) 58.5 % (15-42); LYMPHOCYTE COUNT 1.5 K/uL (1.0-2.8); MCH 29.2 PG (29.0-34.0); MCHC 33.5 G/DL (30.0-36.0); MCV 87.1 FL (86-99); MONOCYTE (%) 9.3 % (3-12); MONOCYTE COUNT 0.2 K/uL (0-0.8); NEUTROPHIL COUNT 0.7 K/uL (1.8-6.4); RBC DIS.WIDTH-CV 15.8 % (11.8-14.6); RED BLOOD COUNT 1.78 M/uL (4.00-5.50); WHITE BLOOD COUNT 2.5 K/uL (4.1-10.2)
[2017-08-01 08:56] LABS: ALBUMIN 1.5 G/DL (3.2-4.8); ALBUMIN 1.6 G/DL (3.2-4.8); CHLORIDE 104 MEQ/L (99-109); GFR ESTIMATE (CALCULATED) 25 mL/min/ (58.99-99999); GLUCOSE 68 mg/dL (70-99); GLUCOSE 69 mg/dL (70-99); MAGNESIUM 2.4 mg/dl (1.3-2.7); PHOSPHORUS 3.3 mg/dL (2.5-4.9); POTASSIUM 4.6 MEQ/L (3.7-5.4); SODIUM 136 MEQ/L (136-147); UREA NITROGEN (BUN) 31 mg/dL (9-23)
[2017-08-01 09:06] LABS: CREATININE 3.3 MG/DL (0.6-1.3)
[2017-08-01 09:12] LABS: ANISOCYTOSIS 1+; MACROCYTES 1+; PLAT.SUFFICIENCY DECREASED; PLATELET COUNT 51 K/uL (156-360)
[2017-08-01 12:16] LABS: HEMATOCRIT 25.5 % (38.0-50.0); MCH 29.6 PG (29.0-34.0); MCHC 34.9 G/DL (30.0-36.0); MCV 84.7 FL (86-99); RBC DIS.WIDTH-CV 14.6 % (11.8-14.6); RBC DIS.WIDTH-SD 44.7 % (39-53); WHITE BLOOD COUNT 2.1 K/uL (4.1-10.2)
[2017-08-01 12:18] LABS: HEMOGLOBIN 8.9 G/DL (12.5-16.6); PLATELET COUNT 126 K/uL (156-360); RED BLOOD COUNT 3.01 M/uL (4.00-5.50)
[2017-08-01 20:17] LABS: BASOPHIL (%) 0.9 % (0-1); EOSINOPHIL (%) 1.7 % (0-5); HEMATOCRIT 26.6 % (38.0-50.0); HEMOGLOBIN 9.1 G/DL (12.5-16.6); IMMATURE GRANULOCYTE (%) 0.4 % (0.0-0.7); LYMPHOCYTE (%) 46.2 % (15-42); LYMPHOCYTE COUNT 1.1 K/uL (1.0-2.8); MCH 29.1 PG (29.0-34.0); MCHC 34.2 G/DL (30.0-36.0); MONOCYTE (%) 11.1 % (3-12); MONOCYTE COUNT 0.3 K/uL (0-0.8); NEUTROPHIL (%) 39.7 % (45-76); NEUTROPHIL COUNT 0.9 K/uL (1.8-6.4); PLATELET COUNT 102 K/uL (156-360); RBC DIS.WIDTH-CV 15.3 % (11.8-14.6); RBC DIS.WIDTH-SD 46.6 % (39-53); RED BLOOD COUNT 3.13 M/uL (4.00-5.50); WHITE BLOOD COUNT 2.3 K/uL (4.1-10.2)
[2017-08-01 20:21] LABS: ALBUMIN 1.9 G/DL (3.2-4.8); CHLORIDE 103 MEQ/L (99-109); POTASSIUM 4.2 MEQ/L (3.7-5.4); SODIUM 136 MEQ/L (136-147); TOTAL BILIRUBIN 1.1 MG/DL (0.0-1.0)
[2017-08-01 20:33] LABS: ALKALINE PHOSPHATASE 37 IU/L (3-129); ALT (GPT) 6 IU/L (3-49); AST (GOT) 18 IU/L (2-34); GFR ESTIMATE (CALCULATED) 53 mL/min/ (58.99-99999); GLUCOSE 65 mg/dL (70-99); UREA NITROGEN (BUN) 13 mg/dL (9-23)
[2017-08-01 20:43] LABS: CREATININE 1.7 MG/DL (0.6-1.3)
[2017-08-01 22:48] LABS: HEMATOCRIT 26.8 % (38.0-50.0); HEMOGLOBIN 9.1 G/DL (12.5-16.6); MCH 29.1 PG (29.0-34.0); MCV 85.6 FL (86-99); PLATELET COUNT 99 K/uL (156-360); RBC DIS.WIDTH-CV 15.6 % (11.8-14.6); RBC DIS.WIDTH-SD 47.7 % (39-53); RED BLOOD COUNT 3.13 M/uL (4.00-5.50); WHITE BLOOD COUNT 2.7 K/uL (4.1-10.2)
[2017-08-02] VITALS (36 sets, daily range): BP systolic 11–180; BP diastolic 55–90
[2017-08-02 06:18] LABS: HEMATOCRIT 25.4 % (38.0-50.0); HEMOGLOBIN 8.6 G/DL (12.5-16.6); MCH 29.2 PG (29.0-34.0); MCHC 33.9 G/DL (30.0-36.0); MCV 86.1 FL (86-99); PLATELET COUNT 104 K/uL (156-360); RBC DIS.WIDTH-CV 16.1 % (11.8-14.6); RBC DIS.WIDTH-SD 49.1 % (39-53); RED BLOOD COUNT 2.95 M/uL (4.00-5.50); WHITE BLOOD COUNT 2.7 K/uL (4.1-10.2)
[2017-08-02 18:47] LABS: HEMATOCRIT 34.7 % (38.0-50.0); MCHC 35.2 G/DL (30.0-36.0); MCV 82.4 FL (86-99); RBC DIS.WIDTH-CV 15.2 % (11.8-14.6); RBC DIS.WIDTH-SD 45.2 % (39-53)
[2017-08-02 18:53] LABS: WHITE BLOOD COUNT 1.9 K/uL (4.1-10.2)
[2017-08-02 18:54] LABS: HEMOGLOBIN 12.2 G/DL (12.5-16.6); RED BLOOD COUNT 4.21 M/uL (4.00-5.50)
[2017-08-02 19:21] LABS: PLATELET COUNT 77 K/uL (156-360)
[2017-08-02 23:37] LABS: HEMATOCRIT 34.8 % (38.0-50.0); HEMOGLOBIN 12.2 G/DL (12.5-16.6); MCH 29.3 PG (29.0-34.0); MCHC 35.1 G/DL (30.0-36.0); MCV 83.5 FL (86-99); PLATELET COUNT 76 K/uL (156-360); RBC DIS.WIDTH-CV 15.9 % (11.8-14.6); RBC DIS.WIDTH-SD 47.8 % (39-53); RED BLOOD COUNT 4.17 M/uL (4.00-5.50)
[2017-08-02 23:38] LABS: WHITE BLOOD COUNT 1.4 K/uL (4.1-10.2)
[2017-08-03] VITALS (28 sets, daily range): BP systolic 101–192; BP diastolic 52–121
[2017-08-03 09:50] LABS: BASOPHIL (%) 0.5 % (0-1); EOSINOPHIL (%) 0 % (0-5); HEMATOCRIT 33.5 % (38.0-50.0); HEMOGLOBIN 11.4 G/DL (12.5-16.6); IMMATURE GRANULOCYTE (%) 0.9 % (0.0-0.7); LYMPHOCYTE (%) 41.4 % (15-42); LYMPHOCYTE COUNT 0.9 K/uL (1.0-2.8); MCH 28.6 PG (29.0-34.0); MCV 84.2 FL (86-99); MONOCYTE (%) 2.7 % (3-12); MONOCYTE COUNT 0.1 K/uL (0-0.8); NEUTROPHIL (%) 54.5 % (45-76); NEUTROPHIL COUNT 1.2 K/uL (1.8-6.4); PLATELET COUNT 71 K/uL (156-360); RBC DIS.WIDTH-CV 16.7 % (11.8-14.6); RBC DIS.WIDTH-SD 50.1 % (39-53); RED BLOOD COUNT 3.98 M/uL (4.00-5.50); WHITE BLOOD COUNT 2.2 K/uL (4.1-10.2)
[2017-08-03 10:15] LABS: ALBUMIN 1.8 G/DL (3.2-4.8); ALKALINE PHOSPHATASE 31 IU/L (3-129); ALT (GPT) 4 IU/L (3-49); AST (GOT) 11 IU/L (2-34); CHLORIDE 110 MEQ/L (99-109); HIGH-SENS C-REACTIVE PROTEIN 5.45 MG/DL (0.02-0.20); POTASSIUM 4.7 MEQ/L (3.7-5.4); SODIUM 137 MEQ/L (136-147); TOTAL PROTEIN 5.8 G/DL (6.4-8.3)
[2017-08-03 10:24] LABS: CREATININE 2.7 MG/DL (0.6-1.3); GFR ESTIMATE (CALCULATED) 31 mL/min/ (58.99-99999); GLUCOSE 152 mg/dL (70-99); TOTAL BILIRUBIN 0.5 MG/DL (0.0-1.0); UREA NITROGEN (BUN) 29 mg/dL (9-23)
[2017-08-03 15:27] LABS: BASOPHIL (%) 0 % (0-1); EOSINOPHIL (%) 0 % (0-5); HEMATOCRIT 34.8 % (38.0-50.0); HEMOGLOBIN 11.6 G/DL (12.5-16.6); IMMATURE GRANULOCYTE (%) 0.3 % (0.0-0.7); LYMPHOCYTE (%) 33.7 % (15-42); LYMPHOCYTE COUNT 1.2 K/uL (1.0-2.8); MCH 29.1 PG (29.0-34.0); MCHC 33.3 G/DL (30.0-36.0); MCV 87.4 FL (86-99); MONOCYTE (%) 8.4 % (3-12); MONOCYTE COUNT 0.3 K/uL (0-0.8); NEUTROPHIL (%) 57.6 % (45-76); NEUTROPHIL COUNT 2.1 K/uL (1.8-6.4); PLATELET COUNT 53 K/uL (156-360); RBC DIS.WIDTH-CV 17.6 % (11.8-14.6); RBC DIS.WIDTH-SD 54.4 % (39-53); RED BLOOD COUNT 3.98 M/uL (4.00-5.50); WHITE BLOOD COUNT 3.6 K/uL (4.1-10.2)
[2017-08-04] VITALS: BP 92/53
[2017-08-04 01:00] VITALS: BP 105/58
== END 2017-08-04 01:46 | disposition short-term general hospital (02) | DRG 299 ==
LOC: EME 15:57 → 4EAST 19:01 → EDOF 19:01 → 5SOUTH 19:01 → ENRESERV 19:02 → 5SOUTH 20:48 → ENRESERV 07-31 04:45 → 4EAST 07-31 06:27 → ENRESERV 08-01 14:46 → 4EAST 08-01 14:49 → ENRESERV 08-01 14:52 → 4WEST 08-01 15:58
PROVIDERS: Hospitalist; Internal Medicine; Internal Medicine Gastroenterology; Internal Medicine Hematology & Oncology; Internal Medicine Nephrology; Physician Assistant; Physician Assistant Medical
PROC: 5A1D70Z Performance of Urinary Filtration, Intermittent, Less than 6 Hours Per Day (ICD-10-PCS; 2017-07-26)
PROC: 30233K1 Transfusion of Nonautologous Frozen Plasma into Peripheral Vein, Percutaneous Approach (ICD-10-PCS; 2017-07-26)
PROC: 30233N1 Transfusion of Nonautologous Red Blood Cells into Peripheral Vein, Percutaneous Approach (ICD-10-PCS; 2017-07-26)
PROC: 07DR3ZX Extraction of Iliac Bone Marrow, Percutaneous Approach, Diagnostic (ICD-10-PCS; principal; 2017-07-29)
PROC: 5A1D70Z Performance of Urinary Filtration, Intermittent, Less than 6 Hours Per Day (ICD-10-PCS; 2017-07-29)
PROC: 05PYX3Z Removal of Infusion Device from Upper Vein, External Approach (ICD-10-PCS; 2017-07-30)
PROC: 0DC58ZZ Extirpation of Matter from Esophagus, Via Natural or Artificial Opening Endoscopic (ICD-10-PCS; 2017-08-01)
PROC: 0DB58ZX Excision of Esophagus, Via Natural or Artificial Opening Endoscopic, Diagnostic (ICD-10-PCS; 2017-08-01)
PROC: 0BH17EZ Insertion of Endotracheal Airway into Trachea, Via Natural or Artificial Opening (ICD-10-PCS; 2017-08-02)
PROC: 5A1945Z Respiratory Ventilation, 24-96 Consecutive Hours (ICD-10-PCS; 2017-08-02)
DX: I71.02 Dissection of abdominal aorta (principal); J96.00 Acute respiratory failure, unspecified whether with hypoxia or hypercapnia; J13 Pneumonia due to Streptococcus pneumoniae; I71.01 Dissection of thoracic aorta; K80.10 Calculus of gallbladder with chronic cholecystitis without obstruction; T18.108A Unspecified foreign body in esophagus causing other injury, initial encounter; D62 Acute posthemorrhagic anemia; N18.6 End stage renal disease; I13.2 Hypertensive heart and chronic kidney disease with heart failure and with stage 5 chronic kidney disease, or end stage renal disease; E46 Unspecified protein-calorie malnutrition; J44.1 Chronic obstructive pulmonary disease with (acute) exacerbation; N30.90 Cystitis, unspecified without hematuria; J44.0 Chronic obstructive pulmonary disease with (acute) lower respiratory infection; D59.4 Other nonautoimmune hemolytic anemias; C18.9 Malignant neoplasm of colon, unspecified; I27.20 Pulmonary hypertension, unspecified; I25.10 Atherosclerotic heart disease of native coronary artery without angina pectoris; I07.1 Rheumatic tricuspid insufficiency; I50.32 Chronic diastolic (congestive) heart failure; E78.5 Hyperlipidemia, unspecified; D69.6 Thrombocytopenia, unspecified; R78.81 Bacteremia; D63.1 Anemia in chronic kidney disease; E53.8 Deficiency of other specified B group vitamins; K55.9 Vascular disorder of intestine, unspecified; K21.9 Gastro-esophageal reflux disease without esophagitis; G40.919 Epilepsy, unspecified, intractable, without status epilepticus; R26.9 Unspecified abnormalities of gait and mobility; K92.0 Hematemesis; K22.9 Disease of esophagus, unspecified; J98.11 Atelectasis; E87.6 Hypokalemia; N25.81 Secondary hyperparathyroidism of renal origin; E87.2 Acidosis; K57.31 Diverticulosis of large intestine without perforation or abscess with bleeding; I77.2 Rupture of artery; D69.2 Other nonthrombocytopenic purpura; G47.30 Sleep apnea, unspecified; F03.90 Unspecified dementia, unspecified severity, without behavioral disturbance, psychotic disturbance, mood disturbance, and anxiety; Y95 Nosocomial condition; I73.9 Peripheral vascular disease, unspecified; Z68.1 Body mass index [BMI] 19.9 or less, adult; K59.00 Constipation, unspecified; F32.9 Major depressive disorder, single episode, unspecified; Z86.14 Personal history of Methicillin resistant Staphylococcus aureus infection; Z99.2 Dependence on renal dialysis; Z87.891 Personal history of nicotine dependence; Z91.19 Patient's noncompliance with other medical treatment and regimen; Z87.440 Personal history of urinary (tract) infections; Z74.01 Bed confinement status
CPT/HCPCS: 71045; 71046; 71250; 71275; 74174; 74176; 76705; 77012; 80048; 80048 91; 80053; 80069; 80202; 81003; 82040; 82272; 82607; 82746; 82948; 83540; 83605; 83615; 83735; 84100; 84145 90; 85007; 85014; 85018; 85025; 85025 91; 85027; 85610; 85730; 86141; 86850; 86860; 86870; 86880; 86900; 86901; 86905; 86920; 87040; 87070; 87077; 87147; 87186; 87205; 87449; 87502; 87641; 88305; 92526 GN; 92610 GN; 94002; 94003; 94640; 94640 76; 99202; 99281; 99285; A6214; C1751; C1753; C1769; C9113; G8996 GN CK; G8997 GN CK; G8997 GN CL; G8998 GN CK; G8998 GN CL; G8999 GN CL; J0360; J0692; J0881; J1200; J1940; J1953; J2543; J2704; J2930; J3010; J3370; J3475; J7030; J7040; J7042; J7050; P9016; P9017; P9035; P9037; P9040; S0028